=== PATIENT | male | born 1995 | race Caucasian/White ===

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

== ENCOUNTER 2017-01-07 22:12 | Inpatient (IN) | payer OTHER ==
[~2017-01-07] VITALS: Ht 175.3 cm; Wt 65.8 kg
[2017-01-07] MEDS ORDERED: 0.9 % SODIUM CHLORIDE 10 ML DISP.SYRIN. IV PRN (22:30)
[2017-01-07] MEDS ORDERED: IV NORMAL SALINE 1000ML BAG 1,000 ML IV SCH (22:30)
[2017-01-07 22:40] LABS: BASO # 0.1 x10^3/uL (0.0-0.2); BASO % 0 % (0-3); EOS % 0 % (0-3); HEMOGLOBIN 17.9 g/dL (13.0-17.5); LYMPH # 1.5 x10^3/uL (1.0-4.8); LYMPH % 7 % (24-48); MEAN CORPUSCULAR HEMOGLOBIN 33 pg (25-35); MEAN CORPUSCULAR HGB CONC 34 g/dL (31-37); MEAN CORPUSCULAR VOLUME 98 fL (79-100); MONO % 7 % (0-9); NEUT % 87 % (31-73); PLATELET COUNT 418 x10^3/uL (140-400); RED BLOOD COUNT 5.43 x10^6/uL (4.30-5.70); RED CELL DISTRIBUTION WIDTH 12.8 % (11.5-14.5); WHITE BLOOD COUNT 22.5 x10^3/uL (4.0-11.0)
[2017-01-07] MEDS ORDERED: HYDROmorphone 2 MG/ML VIAL IV ONE (22:45)
[2017-01-07] MEDS ORDERED: ONDANSETRON PF 4 MG/2 ML VIAL. IV ONE (22:45)
--- NOTE | 2017-01-07 22:48 | PHYS DOC ---
Past Medical History Past Medical History: Diabetes-Type I Past Surgical History: No Surgical History Alcohol Use: Occasionally Drug Use: Cocaine, Marijuana Adult General Chief Complaint Chief Complaint: BLOOD SUGAR PROBLEM HPI HPI He is a pleasant 21-year-old male with history of diabetes and prior history of DKA presents with lower back pain and nausea and vomiting that began about 6:30 PM tonight. He's noted his sugars been well over 400 tonight and is not be able to tolerate any food or fluids. Patient is getting progressively weak and shaky with increasing abdominal pain. He describes the pain as typical crampy achy pain with his nausea vomiting. That's been nonbilious nonbloody and no diarrhea. Patient denies any urinary frequency urgency or dysuria. He also denies any hematuria. He has had significant chills but no fevers or diaphoresis. Patient just doesn't feel well. He describes general myalgias in his lower back described as an achy pain which is typical with his prior DKA events. He denies any trauma, travel outside the country or recent antibiotics use he also denies any changes to his medication dosing. Review of Systems Review of Systems Constitutional: He is complaining of chills without fevers Eyes: Denies change in visual acuity, redness, or eye pain [] HENT: Denies nasal congestion or sore throat does complain of a sore dry mouth Respiratory: Denies cough or shortness of breath [] Cardiovascular: No additional information not addressed in HPI [] GI: Does complain of diffuse abdominal discomfort with nausea and vomiting nonbilious nonbloody no diarrhea no constipation : Denies dysuria or hematuria [] Musculoskeletal: He describes crampy achy back pain with no radiation to the abdomen. Integument: Denies rash or skin lesions [] Neurologic: Denies headache, focal weakness or sensory changes [] Endocrine: Denies polyuria or polydipsia [] Current Medications Current Medications Current Medications Medications (Trade) Dose Ordered Sig/Nam Start Time Stop Time Status Last Admin Dose Admin Fentanyl Citrate (Fentanyl 2ml Vial) 50 mcg PRN Q2HR PRN 01/07/17 23:15 01/08/17 23:14 Hydromorphone HCl (Dilaudid) 1 mg 1X ONCE 01/07/17 22:45 01/07/17 22:46 DC 01/07/17 22:47 1 MG Insulin Human Regular 150 ml @ 0 mls/hr 1X ONCE 01/07/17 23:15 01/07/17 23:19 DC Lorazepam (Ativan) 1 mg 1X ONCE 01/07/17 22:45 01/07/17 22:46 DC 01/07/17 22:48 1 MG Ondansetron HCl (Zofran) 4 mg PRN Q8HRS PRN 01/07/17 23:15 01/08/17 23:14 Sodium Chloride 1,000 ml @ 1,000 mls/hr 1X ONCE 01/07/17 23:15 01/08/17 00:14 Sodium Chloride (Normal Saline Flush) 10 ml QSHIFT PRN 01/07/17 22:30 01/07/17 23:17 10 ML Allergies Allergies Allergies Coded Allergies Type Severity Reaction Last Updated Verified Penicillins Allergy Intermediate 05/27/15 Yes amoxicillin Allergy Intermediate 05/27/15 Yes cefaclor Allergy Intermediate 05/04/16 Yes Physical Exam Physical Exam Constitutional: He is thin and cachectic in obvious distress hyperventilating complaining of abdominal pain actively vomiting HENT: Normocephalic, atraumatic, bilateral external ears normal, very dry mucous membranes, no oral exudates, nose normal. [] Eyes: PERRLA, EOMI, conjunctiva normal, no discharge. [] Neck: Normal range of motion, no tenderness, supple, no stridor. [] Cardiovascular: Noted tachycardia Lungs & Thorax: Bilateral breath sounds clear to auscultation [] Abdomen: With hyperactive bowel sounds soft no guarding rebound organomegaly Skin: Warm, does demonstrate slight diaphoresis pale no erythema no rash[] Back: No tenderness, no CVA tenderness. [] Extremities: No tenderness, no cyanosis, no clubbing, ROM intact, no edema. [] Neurologic: Alert and oriented X 3, normal motor function, normal sensory function, no focal deficits noted. [] Psychologic: Affect normal, judgement normal, mood normal. [] Current Patient Data Vital Signs Vital Signs Date Time Temp Pulse Resp B/P (MAP) Pulse Ox O2 Delivery O2 Flow Rate FiO2 01/07/17 22:47 Room Air 01/07/17 22:35 98.3 118 36 163/93 (116) 100 98.3 Lab Values Laboratory Tests Test 01/07/17 22:29 01/07/17 22:34 O2 Saturation 97 % (92-99) Arterial Blood pH 7.21 (7.35-7.45) L Arterial Blood pCO2 at Patient Temp 25 mmHg (35-46) L Arterial Blood pO2 at Patient Temp 99 mmHg (85-108) Arterial Blood HCO3 10 mmol/L (21-28) L Arterial Blood Base Excess -16 mmol/L (-3-3) L FiO2 21 White Blood Count 22.5 x10^3/uL (4.0-11.0) H Red Blood Count 5.43 x10^6/uL (4.30-5.70) Hemoglobin 17.9 g/dL (13.0-17.5) H Hematocrit 53.0 % (39.0-53.0) Mean Corpuscular Volume 98 fL (79-100) Mean Corpuscular Hemoglobin 33 pg (25-35) Mean Corpuscular Hemoglobin Concent 34 g/dL (31-37) Red Cell Distribution Width 12.8 % (11.5-14.5) Platelet Count 418 x10^3/uL (140-400) H Neutrophils (%) (Auto) 87 % (31-73) H Lymphocytes (%) (Auto) 7 % (24-48) L Monocytes (%) (Auto) 7 % (0-9) Eosinophils (%) (Auto) 0 % (0-3) Basophils (%) (Auto) 0 % (0-3) Neutrophils # (Auto) 19.5 x10^3uL (1.8-7.7) H Lymphocytes # (Auto) 1.5 x10^3/uL (1.0-4.8) Monocytes # (Auto) 1.5 x10^3/uL (0.0-1.1) H Eosinophils # (Auto) 0.0 x10^3/uL (0.0-0.7) Basophils # (Auto) 0.1 x10^3/uL (0.0-0.2) Platelet Estimate Pending Sodium Level 134 mmol/L (136-145) L Potassium Level 4.5 mmol/L (3.5-5.1) Chloride Level 90 mmol/L (98-107) L Carbon Dioxide Level 13 mmol/L (21-32) L Anion Gap 31 (6-14) H Blood Urea Nitrogen 21 mg/dL (8-26) Creatinine 1.7 mg/dL (0.7-1.3) H Estimated GFR (Cockcroft-Gault) 52.2 BUN/Creatinine Ratio 12 (6-20) Glucose Level 461 mg/dL (70-99) H Calcium Level 10.4 mg/dL (8.5-10.1) H Magnesium Level 2.1 mg/dL (1.8-2.4) Total Bilirubin 0.5 mg/dL (0.2-1.0) Aspartate Amino Transferase (AST) 20 U/L (15-37) Alanine Aminotransferase (ALT) 25 U/L (16-63) Alkaline Phosphatase 193 U/L (46-116) H Total Protein 10.4 g/dL (6.4-8.2) H Albumin 5.3 g/dL (3.4-5.0) H Albumin/Globulin Ratio 1.0 (1.0-1.7) Lipase 78 U/L (73-393) Thyroid Stimulating Hormone (TSH) 0.555 uIU/mL (0.358-3.74) Acetone Level Sm pos (NEG) Laboratory Tests 01/07/17 22:34 Laboratory Tests 01/07/17 22:34 EKG EKG [] Radiology/Procedures Radiology/Procedures [] Course & Med Decision Making Course & Med Decision Making Pertinent Labs and Imaging studies reviewed. (See chart for details) patient presents with nausea vomiting abdominal pain with back pain very similar to his prior episodes of DKA. I concern is that patient's blood sugar upon arrival is 470 as been elevated all day. He is very weak pale looking mildly diaphoretic patient's LOC not feeling well is mildly tachycardic on arrival with very dry mucous members. He's had decreasing urine output all day. The objective at this point is to assess level of potassium for starting insulin providing a great deal fluid to rehydrate this patient. Patient was given 2 L of normal saline here in the emergency department potassium noted to be 4.5 patient's platelet count is also elevated 418 which is like an acute phase reaction secondary to stress Patient's ABG demonstrates a pH of 7.21 PCO2 of 25 PaO2 99 bicarbonate of 10 patient's ABG shows signs of metabolic acidosis he has a white count of 22,000 which is likely secondary to address from DKA patient's UN is normal but his creatinine is elevated at 1.7. Acetone level is slightly positive. Laboratory Tests Test 01/07/17 22:29 01/07/17 22:34 O2 Saturation 97 % (92-99) Arterial Blood pH 7.21 (7.35-7.45) Arterial Blood pCO2 at Patient Temp 25 mmHg (35-46) Arterial Blood pO2 at Patient Temp 99 mmHg (85-108) Arterial Blood HCO3 10 mmol/L (21-28) Arterial Blood Base Excess -16 mmol/L (-3-3) FiO2 21 White Blood Count 22.5 x10^3/uL (4.0-11.0) Red Blood Count 5.43 x10^6/uL (4.30-5.70) Hemoglobin 17.9 g/dL (13.0-17.5) Hematocrit 53.0 % (39.0-53.0) Mean Corpuscular Volume 98 fL (79-100) Mean Corpuscular Hemoglobin 33 pg (25-35) Mean Corpuscular Hemoglobin Concent 34 g/dL (31-37) Red Cell Distribution Width 12.8 % (11.5-14.5) Platelet Count 418 x10^3/uL (140-400) Neutrophils (%) (Auto) 87 % (31-73) Lymphocytes (%) (Auto) 7 % (24-48) Monocytes (%) (Auto) 7 % (0-9) Eosinophils (%) (Auto) 0 % (0-3) Basophils (%) (Auto) 0 % (0-3) Neutrophils # (Auto) 19.5 x10^3uL (1.8-7.7) Lymphocytes # (Auto) 1.5 x10^3/uL (1.0-4.8) Monocytes # (Auto) 1.5 x10^3/uL (0.0-1.1) Eosinophils # (Auto) 0.0 x10^3/uL (0.0-0.7) Basophils # (Auto) 0.1 x10^3/uL (0.0-0.2) Sodium Level 134 mmol/L (136-145) Chloride Level 90 mmol/L (98-107) Carbon Dioxide Level 13 mmol/L (21-32) Anion Gap 31 (6-14) Blood Urea Nitrogen 21 mg/dL (8-26) Estimated GFR (Cockcroft-Gault) 52.2 BUN/Creatinine Ratio 12 (6-20) Glucose Level 461 mg/dL (70-99) Calcium Level 10.4 mg/dL (8.5-10.1) Total Bilirubin 0.5 mg/dL (0.2-1.0) Aspartate Amino Transf (AST/SGOT) 20 U/L (15-37) Alkaline Phosphatase 193 U/L (46-116) Total Protein 10.4 g/dL (6.4-8.2) Albumin 5.3 g/dL (3.4-5.0) Albumin/Globulin Ratio 1.0 (1.0-1.7) Lipase 78 U/L (73-393) Acetone Level Sm pos (NEG) []At this point patient's urinalysis is still pending patient's chest x-ray read by me are 2 views AP films done at 11 PM 01/07/2017 demonstrates no focal infiltrates, no pneumothorax, no pleural effusion. [employer] note: Dr. Cruz [employer] called at of the service 11:20 pm Consult called back at 11:24 Discussed the case I presented and they agreed with admission. Time of acceptance 11:24 Impression: DKA, dehydration, back pain Dragon Disclaimer Dragon Disclaimer This electronic medical record was generated, in whole or in part, using a voice recognition dictation system. Departure Departure Impression: Primary Impression: DKA (diabetic ketoacidoses) Disposition: ADMITTED INPATIENT Condition: GUARDED Referrals: Edel RIGGS MD (PCP) KARTHIK OH MD Jan 07, 2017 22:48
[2017-01-07 22:51] LABS: MAGNESIUM 2.1 mg/dL (1.8-2.4)
[2017-01-07 22:56] LABS: ALBUMIN 5.3 g/dL (3.4-5.0); CALCIUM 10.4 mg/dL (8.5-10.1); CREATININE 1.7 mg/dL (0.7-1.3); GFR 52.2; POTASSIUM 4.5 mmol/L (3.5-5.1); TOTAL BILIRUBIN 0.5 mg/dL (0.2-1.0); TOTAL PROTEIN 10.4 g/dL (6.4-8.2)
[2017-01-07 23:05] LABS: ACETONE SM POS (NEG)
[2017-01-07 23:10] LABS: HCO3 ABG 10 mmol/L (21-28); PCO2 ABG 25 mmHg (35-46); PH ABG 7.21 (7.35-7.45); PO2 ABG 99 mmHg (85-108); SAT O2 ABG 97 % (92-99)
[2017-01-07 23:11] LABS: FIO2 ABG 21
[2017-01-07] MEDS ORDERED: fentaNYL PF VIAL 100 MCG/2 ML VIAL IV PRN (23:15)
[2017-01-07] MEDS ORDERED: ONDANSETRON PF 4 MG/2 ML VIAL. IV PRN (23:15)
[2017-01-07] MEDS ORDERED: IV NORMAL SALINE 1000ML BAG 1,000 ML IV ONE (23:15)
[2017-01-07] MEDS ORDERED: INSULIN,REGULAR 150 UNIT DRIP 150 ML IV ONE (23:15)
[2017-01-07 23:29] LABS: PLT ESTIMATE INCREASED (ADEQUATE)
[2017-01-07] MEDS ORDERED: POTASSIUM CHLORIDE 10MEQ 100 ML IV PRN ×3 (23:45)
[2017-01-07] MEDS ORDERED: INSULIN REGULAR VIAL 150 UNIT in 0.9 % SODIUM CHLORIDE 150ML 150 ML IV PRN (23:45)
[2017-01-08] VITALS (14 sets, daily range): BP systolic 117–154; BP diastolic 56–92
[2017-01-08] MEDS ORDERED: INSU100V8 SQ (01:34)
[2017-01-08] MEDS ORDERED: INSU100C4 SQ (01:35)
[2017-01-08] MEDS: POTASSIUM CHLORIDE 10MEQ 100 ML IV SCH ×4 (01:39→06:28)
[2017-01-08] MEDS: IV DEXTROSE 5% - 0.9 % NACL 1,000 ML IV SCH ×2 (01:40→05:08)
[2017-01-08 04:52] LABS: CALCIUM 8.8 mg/dL (8.5-10.1); CREATININE 1.2 mg/dL (0.7-1.3); MAGNESIUM 1.9 mg/dL (1.8-2.4); PHOSPHORUS 2.8 mg/dL (2.6-4.7); POTASSIUM 4.6 mmol/L (3.5-5.1)
--- NOTE | 2017-01-08 06:21 | EKG ---
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
[2017-01-08] MEDS: IV NORMAL SALINE 1000ML BAG 1,000 ML IV SCH ×2 (06:24→17:25)
[2017-01-08] MEDS ORDERED: DEXTROSE 50% 25 GM / 50ML DISP.SYRIN. IV PRN (06:30)
--- NOTE | 2017-01-08 07:28 | RAD ---
Indication nausea vomiting and back pain. 2 AP views of the chest were obtained. No prior imaging of the chest is available. The heart, pulmonary vessels and mediastinum appear normal. The lungs are clear. IMPRESSION: No acute process seen in the chest
[2017-01-08] MEDS: INSULIN ASPART 300 UNITS/3 ML INSULN.PEN SQ SCH ×6 (07:30→17:27)
--- NOTE | 2017-01-08 08:12 | PDOC ---
PROGRESS NOTES Subjective Subjective Patient sleepy, denies nausea or abdominal pain at this time. Objective Objective Vital Signs Date Time Temp Pulse Resp B/P (MAP) Pulse Ox O2 Delivery O2 Flow Rate FiO2 01/08/17 07:00 95 12 120/58 (78) Room Air 01/08/17 06:00 98 01/08/17 04:00 97.6 97.6 Physical Exam Abdomen: Normal bowel sounds, Soft, No tenderness Heart: Regular rate Extremities: No edema General: Alert, Oriented X3, No acute distress Lungs: Clear to auscultation Assessment Assessment Problems Medical Problems: (1) DKA (diabetic ketoacidoses) Status: Acute Plan Plan of Care 1. DM1 with DKA - lab much improved with hydration overnight. Patient states he hadn't taken his insulins for 1-2 days. Changed to NS, taking po now without problems. K+ good, continue to follow lab. Resuming SQ insulins, off insulin gtt. 2. substance abuse - UDS has been positive for cocaine on previous ER visit. No UDS done this time, patient does admit to some drug use recently. Smokes cigarettes, declines nicotine patch. 3. hx depression - patient was seen in our office several months ago reporting significant symptoms of this. He had declined medication and was advised counseling. Patient apparently did not receive any tx, states he has not felt depressed recently. Comment Review of Relevant I have reviewed the following items aline (where applicable) has been applied. Labs Laboratory Tests Test 01/07/17 22:29 01/07/17 22:34 01/07/17 23:39 01/08/17 00:33 O2 Saturation 97 % (92-99) Arterial Blood pH 7.21 (7.35-7.45) Arterial Blood pCO2 at Patient Temp 25 mmHg (35-46) Arterial Blood pO2 at Patient Temp 99 mmHg (85-108) Arterial Blood HCO3 10 mmol/L (21-28) Arterial Blood Base Excess -16 mmol/L (-3-3) FiO2 21 Glucose (Fingerstick) 470 mg/dL (70-99) 369 mg/dL (70-99) 258 mg/dL (70-99) White Blood Count 22.5 x10^3/uL (4.0-11.0) Red Blood Count 5.43 x10^6/uL (4.30-5.70) Hemoglobin 17.9 g/dL (13.0-17.5) Hematocrit 53.0 % (39.0-53.0) Mean Corpuscular Volume 98 fL (79-100) Mean Corpuscular Hemoglobin 33 pg (25-35) Mean Corpuscular Hemoglobin Concent 34 g/dL (31-37) Red Cell Distribution Width 12.8 % (11.5-14.5) Platelet Count 418 x10^3/uL (140-400) Neutrophils (%) (Auto) 87 % (31-73) Lymphocytes (%) (Auto) 7 % (24-48) Monocytes (%) (Auto) 7 % (0-9) Eosinophils (%) (Auto) 0 % (0-3) Basophils (%) (Auto) 0 % (0-3) Neutrophils # (Auto) 19.5 x10^3uL (1.8-7.7) Lymphocytes # (Auto) 1.5 x10^3/uL (1.0-4.8) Monocytes # (Auto) 1.5 x10^3/uL (0.0-1.1) Eosinophils # (Auto) 0.0 x10^3/uL (0.0-0.7) Basophils # (Auto) 0.1 x10^3/uL (0.0-0.2) Segmented Neutrophils % 78 % (35-66) Band Neutrophils % 10 % (0-9) Lymphocytes % 7 % (24-48) Monocytes % 5 % (0-10) Platelet Estimate Increased (ADEQUATE) Sodium Level 134 mmol/L (136-145) Potassium Level 4.5 mmol/L (3.5-5.1) Chloride Level 90 mmol/L (98-107) Carbon Dioxide Level 13 mmol/L (21-32) Anion Gap 31 (6-14) Blood Urea Nitrogen 21 mg/dL (8-26) Creatinine 1.7 mg/dL (0.7-1.3) Estimated GFR (Cockcroft-Gault) 52.2 BUN/Creatinine Ratio 12 (6-20) Glucose Level 461 mg/dL (70-99) Calcium Level 10.4 mg/dL (8.5-10.1) Magnesium Level 2.1 mg/dL (1.8-2.4) Total Bilirubin 0.5 mg/dL (0.2-1.0) Aspartate Amino Transf (AST/SGOT) 20 U/L (15-37) Alanine Aminotransferase (ALT/SGPT) 25 U/L (16-63) Alkaline Phosphatase 193 U/L (46-116) Total Protein 10.4 g/dL (6.4-8.2) Albumin 5.3 g/dL (3.4-5.0) Albumin/Globulin Ratio 1.0 (1.0-1.7) Lipase 78 U/L (73-393) Thyroid Stimulating Hormone (TSH) 0.555 uIU/mL (0.358-3.74) Acetone Level Sm pos (NEG) Test 01/08/17 01:00 01/08/17 02:04 01/08/17 03:06 01/08/17 03:58 Glucose (Fingerstick) 209 mg/dL (70-99) 211 mg/dL (70-99) 253 mg/dL (70-99) 288 mg/dL (70-99) Test 01/08/17 04:00 01/08/17 04:59 01/08/17 05:52 Sodium Level 133 mmol/L (136-145) Potassium Level 4.6 mmol/L (3.5-5.1) Chloride Level 99 mmol/L (98-107) Carbon Dioxide Level 20 mmol/L (21-32) Anion Gap 14 (6-14) Blood Urea Nitrogen 17 mg/dL (8-26) Creatinine 1.2 mg/dL (0.7-1.3) Estimated GFR (Cockcroft-Gault) 78.0 Glucose Level 266 mg/dL (70-99) Calcium Level 8.8 mg/dL (8.5-10.1) Phosphorus Level 2.8 mg/dL (2.6-4.7) Magnesium Level 1.9 mg/dL (1.8-2.4) Glucose (Fingerstick) 237 mg/dL (70-99) 224 mg/dL (70-99) Laboratory Tests Test 01/07/17 22:29 01/07/17 22:34 01/07/17 23:39 01/08/17 00:33 O2 Saturation 97 % (92-99) Arterial Blood pH 7.21 (7.35-7.45) Arterial Blood pCO2 at Patient Temp 25 mmHg (35-46) Arterial Blood pO2 at Patient Temp 99 mmHg (85-108) Arterial Blood HCO3 10 mmol/L (21-28) Arterial Blood Base Excess -16 mmol/L (-3-3) FiO2 21 Glucose (Fingerstick) 470 mg/dL (70-99) 369 mg/dL (70-99) 258 mg/dL (70-99) White Blood Count 22.5 x10^3/uL (4.0-11.0) Red Blood Count 5.43 x10^6/uL (4.30-5.70) Hemoglobin 17.9 g/dL (13.0-17.5) Hematocrit 53.0 % (39.0-53.0) Mean Corpuscular Volume 98 fL (79-100) Mean Corpuscular Hemoglobin 33 pg (25-35) Mean Corpuscular Hemoglobin Concent 34 g/dL (31-37) Red Cell Distribution Width 12.8 % (11.5-14.5) Platelet Count 418 x10^3/uL (140-400) Neutrophils (%) (Auto) 87 % (31-73) Lymphocytes (%) (Auto) 7 % (24-48) Monocytes (%) (Auto) 7 % (0-9) Eosinophils (%) (Auto) 0 % (0-3) Basophils (%) (Auto) 0 % (0-3) Neutrophils # (Auto) 19.5 x10^3uL (1.8-7.7) Lymphocytes # (Auto) 1.5 x10^3/uL (1.0-4.8) Monocytes # (Auto) 1.5 x10^3/uL (0.0-1.1) Eosinophils # (Auto) 0.0 x10^3/uL (0.0-0.7) Basophils # (Auto) 0.1 x10^3/uL (0.0-0.2) Segmented Neutrophils % 78 % (35-66) Band Neutrophils % 10 % (0-9) Lymphocytes % 7 % (24-48) Monocytes % 5 % (0-10) Platelet Estimate Increased (ADEQUATE) Sodium Level 134 mmol/L (136-145) Potassium Level 4.5 mmol/L (3.5-5.1) Chloride Level 90 mmol/L (98-107) Carbon Dioxide Level 13 mmol/L (21-32) Anion Gap 31 (6-14) Blood Urea Nitrogen 21 mg/dL (8-26) Creatinine 1.7 mg/dL (0.7-1.3) Estimated GFR (Cockcroft-Gault) 52.2 BUN/Creatinine Ratio 12 (6-20) Glucose Level 461 mg/dL (70-99) Calcium Level 10.4 mg/dL (8.5-10.1) Magnesium Level 2.1 mg/dL (1.8-2.4) Total Bilirubin 0.5 mg/dL (0.2-1.0) Aspartate Amino Transf (AST/SGOT) 20 U/L (15-37) Alanine Aminotransferase (ALT/SGPT) 25 U/L (16-63) Alkaline Phosphatase 193 U/L (46-116) Total Protein 10.4 g/dL (6.4-8.2) Albumin 5.3 g/dL (3.4-5.0) Albumin/Globulin Ratio 1.0 (1.0-1.7) Lipase 78 U/L (73-393) Thyroid Stimulating Hormone (TSH) 0.555 uIU/mL (0.358-3.74) Acetone Level Sm pos (NEG) Test 01/08/17 01:00 01/08/17 02:04 01/08/17 03:06 01/08/17 03:58 Glucose (Fingerstick) 209 mg/dL (70-99) 211 mg/dL (70-99) 253 mg/dL (70-99) 288 mg/dL (70-99) Test 01/08/17 04:00 01/08/17 04:59 01/08/17 05:52 Sodium Level 133 mmol/L (136-145) Potassium Level 4.6 mmol/L (3.5-5.1) Chloride Level 99 mmol/L (98-107) Carbon Dioxide Level 20 mmol/L (21-32) Anion Gap 14 (6-14) Blood Urea Nitrogen 17 mg/dL (8-26) Creatinine 1.2 mg/dL (0.7-1.3) Estimated GFR (Cockcroft-Gault) 78.0 Glucose Level 266 mg/dL (70-99) Calcium Level 8.8 mg/dL (8.5-10.1) Phosphorus Level 2.8 mg/dL (2.6-4.7) Magnesium Level 1.9 mg/dL (1.8-2.4) Glucose (Fingerstick) 237 mg/dL (70-99) 224 mg/dL (70-99) Medications Current Medications Lorazepam (Ativan) 1 mg 1X ONCE IV Last administered on 01/07/17 22:48; Start 01/07/17 at 22:45; Stop 01/07/17 at 22:46; Status DC Sodium Chloride 1,000 ml @ 1,000 mls/hr Q1H IV Last administered on 22:48; Start 01/07/17 at 22:30; Stop 01/07/17 at 23:29; Status DC Sodium Chloride (Normal Saline Flush) 10 ml QSHIFT PRN IV AFTER MEDS AND BLOOD DRAWS Last administered on 01/07/17 23:17; Start 01/07/17 at 22:30 Hydromorphone HCl (Dilaudid) 1 mg 1X ONCE IV Last administered on 01/07/17 22:47; Start 01/07/17 at 22:45; Stop 01/07/17 at 22:46; Status DC Ondansetron HCl (Zofran) 4 mg 1X ONCE IV Last administered on 01/07/17 22:47 ; Start 01/07/17 at 22:45; Stop 01/07/17 at 22:46; Status DC Sodium Chloride 1,000 ml @ 1,000 mls/hr 1X ONCE IV ; Start 01/07/17 at 23:15 ; Stop 01/08/17 at 06:26; Status DC Insulin Human Regular 150 ml @ 0 mls/hr 1X ONCE IV Last administered on 23:33; Start 01/07/17 at 23:15; Stop 01/07/17 at 23:19; Status DC Ondansetron HCl (Zofran) 4 mg PRN Q8HRS PRN IV NAUSEA/VOMITING; Start at 23:15; Stop 01/08/17 at 23:14 Fentanyl Citrate (Fentanyl 2ml Vial) 50 mcg PRN Q2HR PRN IV PAIN Last administered on 01/08/17 01:42; Start 01/07/17 at 23:15; Stop 01/08/17 at 23 :14 Insulin Human Regular 150 unit/ Sodium Chloride 151.5 ml @ 0 mls/hr CONT PRN PRN IV PER PROTOCOL; Start 01/07/17 at 23:45; Stop 01/08/17 at 06:38; Status DC Potassium Chloride 100 ml @ 100 mls/hr PRN Q1HR PRN IV SEE COMMENTS; Start at 23:45 Potassium Chloride 100 ml @ 100 mls/hr PRN Q1HR PRN IV SEE COMMENTS; Start at 23:45 Potassium Chloride 100 ml @ 100 mls/hr PRN Q1HR PRN IV SEE COMMENTS; Start at 23:45 Potassium Chloride 100 ml @ 100 mls/hr Q1H IV Last administered on 01/08/17 02:36; Start 01/08/17 at 01:30; Stop 01/08/17 at 03:29; Status DC Dextrose/Sodium Chloride 1,000 ml @ 250 mls/hr Q4H IV Last administered on 05:08; Start 01/08/17 at 01:30; Stop 01/08/17 at 06:26; Status DC Potassium Chloride 100 ml @ 100 mls/hr Q1H IV Last administered on 01/08/17 06:28; Start 01/08/17 at 05:30; Stop 01/08/17 at 07:29; Status DC Insulin Aspart (NovoLOG) 0-9 UNITS TIDWMEALS SQ ; Start 01/08/17 at 08:00 Dextrose (Dextrose 50%-Water Syringe) 12.5 gm PRN Q15MIN PRN IV SEE COMMENTS; Start 01/08/17 at 06:30 Sodium Chloride 1,000 ml @ 100 mls/hr Q10H IV Last administered on 01/08/17 06:24; Start 01/08/17 at 06:30 Insulin Aspart (NovoLOG) 10 units TIDAC SQ ; Start 01/08/17 at 07:30 Active Scripts Active Reported Novolog (Insulin Aspart) 100 Unit/1 Ml Cartridge 100 Unit SQ Lantus (Insulin Glargine,Hum.rec.anlog) 100 Unit/1 Ml Vial 55 Unit SQ HS Vitals/I & O Vital Sign - Last 24 Hours 01/07/17 01/07/17 01/07/17 01/07/17 22:35 22:47 23:00 23:20 Temp 98.3 98.3 Pulse 118 114 Resp 36 24 B/P (MAP) 163/93 (116) 161/87 (111) Pulse Ox 100 99 O2 Delivery Room Air Room Air Room Air Room Air 01/07/17 01/08/17 01/08/17 01/08/17 23:30 00:00 00:30 01:00 Temp 98.3 98.3 Pulse 108 104 114 106 Resp 18 16 16 20 B/P (MAP) 164/90 (114) 147/80 (102) 157/82 (107) 143/83 (103) Pulse Ox 100 98 99 100 O2 Delivery Room Air 01/08/17 01/08/17 01/08/17 01/08/17 01:15 01:30 01:30 01:42 Pulse 106 112 Resp 23 16 25 B/P (MAP) 154/91 (112) 149/87 (107) Pulse Ox 100 100 100 O2 Delivery Room Air Room Air Room Air Room Air 01/08/17 01/08/17 01/08/17 01/08/17 01:45 02:00 02:27 02:30 Pulse 106 103 102 Resp 26 26 18 21 B/P (MAP) 146/92 (110) 146/83 (104) 146/75 (98) Pulse Ox 100 98 100 97 O2 Delivery Room Air Room Air Room Air Room Air 01/08/17 01/08/17 01/08/17 01/08/17 03:00 04:00 04:00 05:00 Temp 97.6 97.6 Pulse 103 109 101 Resp 14 17 13 B/P (MAP) 145/67 (93) 135/62 (86) 135/67 (89) Pulse Ox 97 98 97 O2 Delivery Room Air Room Air Room Air Room Air 01/08/17 01/08/17 06:00 07:00 Pulse 100 95 Resp 14 12 B/P (MAP) 121/57 (78) 120/58 (78) Pulse Ox 98 O2 Delivery Room Air Room Air TWIN KATZ MD Jan 08, 2017 08:11
[2017-01-08] MEDS ORDERED: ACETAMINOPHEN 500 MG TABLET PO PRN (08:15)
--- NOTE | 2017-01-08 09:05 | HP ---
ADMIT DATE: 01/08/2017 CHIEF COMPLAINT: Abdominal pain with nausea and vomiting. HISTORY OF PRESENT ILLNESS: The patient is a 21-year-old male with type 1 diabetes who presented to the Emergency Room with the above complaint. He reported the onset of symptoms earlier in the evening with low back pain and nausea. He noted that his blood sugars were over 400 and he was not able to tolerate any food or fluids. Initial evaluation in the Emergency Room showed the patient to be in DKA with positive serum acetone. He was started on IV fluids and potassium replacement per protocol with insulin drip and admitted for further treatment. PAST MEDICAL HISTORY: Diabetes mellitus type 1, substance abuse. PAST SURGICAL HISTORY: None. ALLERGIES: THE PATIENT IS ALLERGIC TO PENICILLINS AND CEFACLOR. HOME MEDICATIONS: NovoLog insulin sliding scale with meals, Lantus insulin 50 units at bedtime. The patient admits he has not taken these for 1-2 days. FAMILY HISTORY: Noncontributory. SOCIAL HISTORY: The patient is single. He does smoke cigarettes. There is also a history of substance abuse with cocaine, marijuana, and alcohol. REVIEW OF SYSTEMS: The patient denies fever or chills. He denies cough or shortness of breath. He denies chest pain or palpitations. He reports that his abdominal pain is much improved from at admission. He denies lower extremity edema. He was seen in our office several months ago with complaint of depression. He declined medication then and was advised counseling. He has not apparently had any counseling, but states that his mood has been better recently and he denies feeling depressed at this time. PHYSICAL EXAMINATION: GENERAL: The patient is alert and oriented x 3, resting comfortably in bed in no acute distress. HEENT: PERRL, EOMI, sclerae clear. Oropharynx: Mucous membranes moist. NECK: Supple, without lymphadenopathy. CHEST: Clear to auscultation with normal respiratory effort. CARDIOVASCULAR: Regular rhythm without murmur. ABDOMEN: Soft, nontender, normoactive bowel sounds are present. EXTREMITIES: Bilateral lower extremities are without edema. ASSESSMENT AND PLAN: 1. Diabetes mellitus type 1 with diabetic ketoacidosis. The patient's lab is much improved with hydration overnight. The nausea and vomiting appears to have resolved and he has already eaten a sandwich this morning without difficulty. We will start him on an ADA diet and change to normal saline for ongoing hydration. Subcutaneous insulins have been resumed and the insulin drip has been discontinued. 2. Substance abuse. The patient's urine drug screen was positive for cocaine on a previous Emergency Room visit. No urine drug screen was done this time. The patient does admit to some cocaine use recently. He also smokes cigarettes and declines a nicotine patch at this time. 3. History of depression. The patient states he is feeling better and did not need any treatment for his mood. TWIN KATZ MD DR: DAVID/victoriano JOB#: [id number] / [id number]
[2017-01-08] MEDS ORDERED: INSULIN DETEMIR 300 UNITS/3 ML INSULN.PEN. SQ SCH (21:00)
== END 2017-01-08 20:32 | disposition left against medical advice (07) | DRG 639 ==
LOC: ER 22:12 → 1 WEST ICU 01-08 00:18 → 5 NORTH 01-08 10:56
PROVIDERS: ADMIT Family Medicine; ATTEND Family Medicine
DX: E10.10 Type 1 diabetes mellitus with ketoacidosis without coma (principal); E86.0 Dehydration; F14.10 Cocaine abuse, uncomplicated; F17.210 Nicotine dependence, cigarettes, uncomplicated; Z79.4 Long term (current) use of insulin
CPT/HCPCS: 36415; 36600; 71010; 80048; 80053; 82010; 82805; 82962; 83036; 83690; 83735; 84100; 84443; 85007; 85025; 87641; 93005; 96361; 96365; 96375; J1170; J1815; J2060; J2405; J3010; J3480; J7030; J7042; 99285-25

== ENCOUNTER 2018-01-19 05:57 | Inpatient (IN) | payer OTHER ==
[2018-01-19] VITALS (11 sets, daily range): BP systolic 120–154; BP diastolic 70–85
[~2018-01-19] VITALS: Ht 175.3 cm; Wt 66.2 kg
[~2018-01-19 05:57] MED LIST: ALBU8.5H8 IH; AZIT1PAC PO; INSU100C4 SQ; INSU100I17 SQ; INSU100I32 SQ; INSU100V8 SQ; LISI-338 PO
[2018-01-19] MEDS ORDERED: IV NORMAL SALINE 1000ML BAG 1,000 ML IV SCH ×2 (06:30→08:25)
[2018-01-19] MEDS ORDERED: ONDANSETRON PF 4 MG/2 ML VIAL. IV ONE (06:30)
--- NOTE | 2018-01-19 06:42 | PHYS DOC ---
Past Medical History Past Medical History: Diabetes-Type II Past Surgical History: No Surgical History Additional Information: "1/2 PACK DAILY" Alcohol Use: Occasionally Drug Use: Cocaine, Marijuana Adult General Chief Complaint Chief Complaint: NAUSEA/VOMITING/DIARRHA HPI HPI Patient is a 22 year old male with history of TYPE 1 diabetic, on insulin, presented to ER today with nausea, vomiting, body aches and yesterday. Patient also complaint of headache. Patient denies any fever, no abdominal pain, no chest pain, no trouble breathing. He denies any fever. Patient has history of DKA, he felt like he might be in DKA again. Review of Systems Review of Systems Constitutional: Denies fever or chills [] Eyes: Denies change in visual acuity, redness, or eye pain [] HENT: Denies nasal congestion or sore throat [] Respiratory: Denies cough or shortness of breath [] Cardiovascular: No additional information not addressed in HPI [] GI: Positive for nausea, vomiting, no abdominal pain, no diarrhea. : Denies dysuria or hematuria [] Musculoskeletal: Positive for back pain or joint pain [] Integument: Denies rash or skin lesions [] Neurologic: Positive for headache, No focal weakness or sensory changes [] Endocrine: Denies polyuria or polydipsia [] All other systems were reviewed and found to be within normal limits, except as documented in this note. Current Medications Current Medications Current Medications Medications (Trade) Dose Ordered Sig/Nam Start Time Stop Time Status Last Admin Dose Admin Acetaminophen (Tylenol) 1,000 mg 1X ONCE 01/19/18 07:30 01/19/18 07:31 DC 01/19/18 07:20 1,000 MG Insulin Human Regular 150 ml @ 0 mls/hr 1X ONCE 01/19/18 07:45 01/19/18 07:47 DC Morphine Sulfate (Morphine Sulfate) 5 mg 1X ONCE 01/19/18 08:00 01/19/18 08:01 DC 01/19/18 08:06 5 MG Ondansetron HCl (Zofran) 8 mg 1X ONCE 01/19/18 06:30 01/19/18 06:31 DC 01/19/18 06:38 8 MG Sodium Chloride 1,000 ml @ 1,000 mls/hr 1X ONCE 01/19/18 07:15 01/19/18 08:14 DC 01/19/18 07:49 1,000 MLS/HR Allergies Allergies Allergies Coded Allergies Type Severity Reaction Last Updated Verified Penicillins Allergy Intermediate 05/27/15 Yes amoxicillin Allergy Intermediate 05/27/15 Yes cefaclor Allergy Intermediate 05/04/16 Yes Physical Exam Physical Exam Constitutional: Well developed, well nourished, no acute distress, non-toxic appearance. [] HENT: Normocephalic, atraumatic, bilateral external ears normal, oropharynx moist, no oral exudates, nose normal. [] Eyes: PERRLA, EOMI, conjunctiva normal, no discharge. [] Neck: Normal range of motion, no tenderness, supple, no stridor. [] Cardiovascular: SINUS TACHYCARDIA, regular rhythm, no murmur [] Lungs & Thorax: Bilateral breath sounds clear to auscultation [] Abdomen: Bowel sounds normal, soft, no tenderness, no masses, no pulsatile masses. [] Skin: Warm, dry, no erythema, no rash. [] Back: No tenderness, no CVA tenderness. [] Extremities: No tenderness, no cyanosis, no clubbing, ROM intact, no edema. [] Neurologic: Alert and oriented X 3, normal motor function, normal sensory function, no focal deficits noted. [] Psychologic: Affect normal, judgement normal, mood normal. [] Current Patient Data Vital Signs Vital Signs Date Time Temp Pulse Resp B/P (MAP) Pulse Ox O2 Delivery O2 Flow Rate FiO2 01/19/18 08:06 18 100 01/19/18 06:34 108 147/90 (109) Room Air 01/19/18 06:05 97.6 97.6 Lab Values Laboratory Tests Test 01/19/18 06:05 01/19/18 06:28 01/19/18 07:30 Glucose (Fingerstick) 284 mg/dL (70-99) H White Blood Count 15.3 x10^3/uL (4.0-11.0) H Red Blood Count 5.32 x10^6/uL (4.30-5.70) Hemoglobin 17.9 g/dL (13.0-17.5) H Hematocrit 51.3 % (39.0-53.0) Mean Corpuscular Volume 96 fL (79-100) Mean Corpuscular Hemoglobin 34 pg (25-35) Mean Corpuscular Hemoglobin Concent 35 g/dL (31-37) Red Cell Distribution Width 13.5 % (11.5-14.5) Platelet Count 282 x10^3/uL (140-400) Neutrophils (%) (Auto) 74 % (31-73) H Lymphocytes (%) (Auto) 16 % (24-48) L Monocytes (%) (Auto) 10 % (0-9) H Eosinophils (%) (Auto) 0 % (0-3) Basophils (%) (Auto) 0 % (0-3) Neutrophils # (Auto) 11.3 x10^3uL (1.8-7.7) H Lymphocytes # (Auto) 2.4 x10^3/uL (1.0-4.8) Monocytes # (Auto) 1.5 x10^3/uL (0.0-1.1) H Eosinophils # (Auto) 0.0 x10^3/uL (0.0-0.7) Basophils # (Auto) 0.0 x10^3/uL (0.0-0.2) Sodium Level 135 mmol/L (136-145) L Potassium Level 3.9 mmol/L (3.5-5.1) Chloride Level 96 mmol/L (98-107) L Carbon Dioxide Level 11 mmol/L (21-32) *L Anion Gap 28 (6-14) H Blood Urea Nitrogen 9 mg/dL (8-26) Creatinine 1.1 mg/dL (0.7-1.3) Estimated GFR (Cockcroft-Gault) 85.3 BUN/Creatinine Ratio 8 (6-20) Glucose Level 301 mg/dL (70-99) H Calcium Level 9.8 mg/dL (8.5-10.1) Total Bilirubin 0.7 mg/dL (0.2-1.0) Aspartate Amino Transferase (AST) 18 U/L (15-37) Alanine Aminotransferase (ALT) 20 U/L (16-63) Alkaline Phosphatase 112 U/L (46-116) Total Protein 9.4 g/dL (6.4-8.2) H Albumin 4.9 g/dL (3.4-5.0) Albumin/Globulin Ratio 1.1 (1.0-1.7) Lipase 101 U/L (73-393) Acetone Level Sm pos (NEG) O2 Saturation 98 % (92-99) Arterial Blood pH 7.20 (7.35-7.45) *L Arterial Blood pCO2 at Patient Temp 18 mmHg (35-46) *L Arterial Blood pO2 at Patient Temp 116 mmHg (85-108) H Arterial Blood HCO3 7 mmol/L (21-28) L Arterial Blood Base Excess -19 mmol/L (-3-3) L FiO2 21 Laboratory Tests 01/19/18 06:28 Laboratory Tests 01/19/18 06:28 EKG EKG [] Radiology/Procedures Radiology/Procedures [[facility] [address] [place] [address] IMAGING REPORT Signed PATIENT: CLEMENTE MALONEY ACCOUNT: [id number] : 1995 LOCATION: ER AGE: 22 SEX: M EXAM STATUS: REG ER ORD. PHYSICIAN: CARMELINA PAUL DO REASON: headache, nausea, vomiting, HTN PROCEDURE: CT HEAD WO CONTRAST ADDENDUM PQRS Compliance Statement: One or more of the following individualized dose reduction techniques were utilized for this examination: 1. Automated exposure control 2. Adjustment of the mA and/or kV according to patient size 3. Use of iterative reconstruction technique Electronically signed by: Memo Davis MD (01/19/2018 7:56 AM) [facility] DICTATED AND SIGNED BY: MEMO DAVIS MD DATE: 01/19/18 0756 CC: Edel PERALTA MD; CARMELINA PAUL DO ~ CT of the head without contrast, 01/19/2018: HISTORY: Headache Comparison is made to a study from 04/04/2009. The ventricles are within normal limits in size. There is no shift of the midline structures. Streaky decreased density in the right temporal lobe may be artifactual. There is subtle frontal lobe asymmetry with loss of the wiley-white matter interface on the right. There is no evidence of acute intracranial hemorrhage. No extra-axial fluid collection or mass is seen. IMPRESSION: Possible subtle right frontal lobe edema. MR scanning may be useful for further evaluation, if clinically indicated. Electronically signed by: Memo Davis MD (01/19/2018 7:42 AM) [facility] DICTATED and SIGNED BY: MEMO DAVIS MD DATE: 01/19/18 0736 ] Course & Med Decision Making Course & Med Decision Making Pertinent Labs and Imaging studies reviewed. (See chart for details) [] Dragon Disclaimer Dragon Disclaimer This electronic medical record was generated, in whole or in part, using a voice recognition dictation system. Departure Departure Impression: Primary Impression: DKA (diabetic ketoacidoses) Additional Impression: Headache Disposition: 09 ADMITTED INPATIENT Admitting Physician: Talia Peralta Condition: STABLE Referrals: Edel PERALTA MD (PCP) Problem Qualifiers CARMELINA PAUL DO Jan 19, 2018 06:42
[2018-01-19 06:44] LABS: BASO % 0 % (0-3); EOS % 0 % (0-3); HEMATOCRIT 51.3 % (39.0-53.0); HEMOGLOBIN 17.9 g/dL (13.0-17.5); LYMPH # 2.4 x10^3/uL (1.0-4.8); LYMPH % 16 % (24-48); MEAN CORPUSCULAR HEMOGLOBIN 34 pg (25-35); MEAN CORPUSCULAR HGB CONC 35 g/dL (31-37); MEAN CORPUSCULAR VOLUME 96 fL (79-100); MONO # 1.5 x10^3/uL (0.0-1.1); MONO % 10 % (0-9); NEUT # 11.3 x10^3uL (1.8-7.7); NEUT % 74 % (31-73); PLATELET COUNT 282 x10^3/uL (140-400); RED BLOOD COUNT 5.32 x10^6/uL (4.30-5.70); RED CELL DISTRIBUTION WIDTH 13.5 % (11.5-14.5); WHITE BLOOD COUNT 15.3 x10^3/uL (4.0-11.0)
[2018-01-19 06:56] LABS: ALBUMIN 4.9 g/dL (3.4-5.0); ALBUMIN/GLOBULIN RATIO 1.1 (1.0-1.7); ALK PHOS 112 U/L (46-116); ALT (SGPT) 20 U/L (16-63); ANION GAP 28 (6-14); AST (SGOT) 18 U/L (15-37); BLOOD UREA NITROGEN 9 mg/dL (8-26); BUN/CREATININE RATIO 8 (6-20); CALCIUM 9.8 mg/dL (8.5-10.1); CHLORIDE 96 mmol/L (98-107); CREATININE 1.1 mg/dL (0.7-1.3); GFR 85.3; GLUCOSE 301 mg/dL (70-99); LIPASE 101 U/L (73-393); POTASSIUM 3.9 mmol/L (3.5-5.1); SODIUM 135 mmol/L (136-145); TOTAL BILIRUBIN 0.7 mg/dL (0.2-1.0); TOTAL PROTEIN 9.4 g/dL (6.4-8.2)
[2018-01-19 06:58] LABS: CARBON DIOXIDE 11 mmol/L (21-32)
[2018-01-19 07:07] LABS: ACETONE SM POS (NEG)
[2018-01-19] MEDS ORDERED: IV NORMAL SALINE 1000ML BAG 1,000 ML IV ONE (07:15)
[2018-01-19] MEDS ORDERED: ACETAMINOPHEN 500 MG TABLET PO ONE (07:30)
[2018-01-19] MEDS ORDERED: INSULIN,REGULAR 150 UNIT DRIP 150 ML IV ONE (07:45)
--- NOTE | 2018-01-19 07:45 | RAD ---
CT of the head without contrast, 01/19/2018: HISTORY: Headache Comparison is made to a study from 04/04/2009. The ventricles are within normal limits in size. There is no shift of the midline structures. Streaky decreased density in the right temporal lobe may be artifactual. There is subtle frontal lobe asymmetry with loss of the wiley-white matter interface on the right. There is no evidence of acute intracranial hemorrhage. No extra-axial fluid collection or mass is seen. IMPRESSION: Possible subtle right frontal lobe edema. MR scanning may be useful for further evaluation, if clinically indicated. Electronically signed by: Memo Davis MD (01/19/2018 7:42 AM) [facility]
[2018-01-19 07:51] LABS: BASE EXCESS ABG -19 mmol/L (-3-3); HCO3 ABG 7 mmol/L (21-28); PO2 ABG 116 mmHg (85-108); SAT O2 ABG 98 % (92-99)
[2018-01-19 07:54] LABS: FIO2 ABG 21; PCO2 ABG 18 mmHg (35-46)
[2018-01-19] MEDS ORDERED: MORPHINE SULFATE 10 MG/ML VIAL. IV ONE (08:00)
[2018-01-19] MEDS ORDERED: ONDANSETRON PF 4 MG/2 ML VIAL. IV PRN (08:30)
[2018-01-19] MEDS: MORPHINE SULFATE 2 MG/ML VIAL. IV PRN ×2 (10:22→19:36)
[2018-01-19 13:01] LABS: CALCIUM 8.2 mg/dL (8.5-10.1); CREATININE 0.9 mg/dL (0.7-1.3); GFR 107.6; MAGNESIUM 1.9 mg/dL (1.8-2.4); PHOSPHORUS 1.7 mg/dL (2.6-4.7); POTASSIUM 4.1 mmol/L (3.5-5.1)
[2018-01-19] MEDS ORDERED: IV DEXTROSE 5% - 0.9 % NACL 1,000 ML IV SCH (13:30)
--- NOTE | 2018-01-19 13:43 | PDOC ---
Provider Note Provider Note H&P dictated # [id number] DKA due to noncompliance Type ! 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
[2018-01-19] MEDS ORDERED: NICOTINE 14MG PATCH. TD PRN (13:45)
[2018-01-19] MEDS ORDERED: LORazepam 0.5 MG TABLET PO PRN (13:45)
--- NOTE | 2018-01-19 14:06 | HP ---
ADMIT DATE: 01/19/2018 ADMISSION DIAGNOSIS: Diabetic ketoacidosis. HISTORY OF PRESENT ILLNESS: This is a 22-year-old white male with type 1 diabetes who has been noncompliant with his insulin therapy. He has been having high blood sugars with nausea, vomiting and body aches. He also had a new symptom though of a headache. He came to the Emergency Room with concern about DKA, which he has been hospitalized for twice prior to this year, once here and once at the . He has been admitted into the Intensive Care Unit on a DKA protocol now. Blood sugars have improved dramatically and he is alert and oriented, still complaining of a headache. PAST MEDICAL HISTORY: Significant for type 1 diabetes, tobacco use, marijuana use and he has a history of cocaine use. PAST SURGICAL HISTORY: Negative. FAMILY HISTORY: Diabetes, hypertension. SOCIAL HISTORY: Intermittently been working. Otherwise, as above. His parents are present. REVIEW OF SYSTEMS: He denies fever or chills. He denies changes in eyes, ears, nose or throat. He denies chest pain, cough or shortness of breath. He denies diarrhea or change in bowels. He denies joint pain. His mom thought he had a rash on his back yesterday, but that has since resolved. He denies any skin lesions, sores. Neurologic, negative for history of seizures. PHYSICAL EXAMINATION: VITAL SIGNS: Since admission heart rate has been around 100, temperature 99.1, respiratory rate ranged from 17-22, oxygen saturations 100% on room air. GENERAL: He is in no acute distress. He is alert and oriented. HEENT: Ocular muscles are intact. Conjunctivae are clear. Facial muscles are symmetrical. Tongue protrudes without any abnormal motion, weakness. NECK: Supple. HEART: Borderline tachycardic without murmur, gallop or rub. Normal S1, S2. LUNGS: Clear anteriorly and posteriorly bilaterally. ABDOMEN: Soft, nondistended, nontender. Bowel sounds are present. SKIN: Without rashes or lesions. EXTREMITIES: Without clubbing, cyanosis or edema. Sensation is intact. NEUROLOGIC: He does not show any focal weakness. LABORATORY DATA: White count was 15.3, hemoglobin 17.9, hematocrit 51.3, platelets 282 with a left shift of 74% neutrophils and only 16% lymphocytes. Blood gas showed a pH of 7.20 with a pCO2 low at 18 and a pO2 of 116 on 21%. Chemistries: Sodium 134, potassium 4.1, anion gap of 16, BUN 7, creatinine 0.9 on his most recent labs, his initial sodium was 135, his initial potassium was 3.9. His initial anion gap was 28. His initial blood sugar was 328, has come down now to 137. Phosphorus was low at 1.7, magnesium is normal at 1.9. Lipase is normal. Liver enzymes are normal. Drug screen is positive for alcohol, negative for cannabinoids, positive for cocaine and acetone is positive. MRSA screen is negative from previous visit. IMAGING: CT of his head, probable subtle right frontal lobe edema suggesting further evaluation with MR scanning. We will defer to Dr. Carbajal regarding contrast. His initial blood pressure reading in the Emergency Room was 169/105. ASSESSMENT: 1. Diabetic ketoacidosis, admitted in the Intensive Care Unit on diabetic ketoacidosis protocol. He is now controlled. 2. 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 3. Initially hypertensive without history of hypertension, likely drug induced. 4. History of polysubstance abuse. PLAN: Continue his ICU care for now. Neurologic consultation has been obtained Counseling has been done regarding drug use, medication compliance. His parents were present during that discussion. W Fernandez RIGGS MD DR: CAMRON/victoriano JOB#: [id number] / [id number]
--- NOTE | 2018-01-19 15:11 | PDOC2 ---
NEUROLOGY CONSULT Date of Admission Date of Admission DATE: 01/19/18 TIME: 15:06 Reason for Consult Reason for Consult: Headache Referring Physician Referring Physician: Dr. Peralta Source Source: Caregiver (mother), Patient History of Present Illness History of Present Illness The patient is a 22-year-old right-handed male admitted with diabetic ketoacidosis, type 1 diabetes. His mother says that he does get a headache when he goes into DKA. He had a headache yesterday. CT of the head was read as abnormal. He does not usually have headaches otherwise. There is no history of stroke, seizure, or head injury. Right now his headache is 0/10. 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, occasional alcohol, marijuana, no tobacco Current Medications Current Medications Current Medications Sodium Chloride 1,000 ml @ 1,000 mls/hr Q1H IV Last administered on at 06:39; Start 01/19/18 at 06:30; Stop 01/19/18 at 07:29; Status DC Ondansetron HCl (Zofran) 8 mg 1X ONCE IV Last administered on 01/19/18at 06:38 ; Start 01/19/18 at 06:30; Stop 01/19/18 at 06:31; Status DC Sodium Chloride 1,000 ml @ 1,000 mls/hr 1X ONCE IV Last administered on 01/19at 07:49; Start 01/19/18 at 07:15; Stop 01/19/18 at 08:14; Status DC Acetaminophen (Tylenol) 1,000 mg 1X ONCE PO Last administered on 01/19/18at 07 :20; Start 01/19/18 at 07:30; Stop 01/19/18 at 07:31; Status DC Insulin Human Regular 150 ml @ 0 mls/hr 1X ONCE IV Last administered on at 08:51; Start 01/19/18 at 07:45; Stop 01/19/18 at 07:47; Status DC Morphine Sulfate (Morphine Sulfate) 5 mg 1X ONCE IV Last administered on 01/19at 08:06; Start 01/19/18 at 08:00; Stop 01/19/18 at 08:01; Status DC Ondansetron HCl (Zofran) 4 mg PRN Q8HRS PRN IV NAUSEA/VOMITING Last administered on 01/19/18at 08:55; Start 01/19/18 at 08:30; Stop 01/20/18 at 08: 29 Morphine Sulfate (Morphine Sulfate) 2 mg PRN Q2HR PRN IV PAIN Last administered on 01/19/18at 10:22; Start 01/19/18 at 08:30; Stop 01/20/18 at 08: 29 Sodium Chloride 1,000 ml @ 100 mls/hr Q10H IV Last administered on 01/19/18at 08:49; Start 01/19/18 at 08:25; Stop 01/19/18 at 13:13; Status DC Dextrose/Sodium Chloride 1,000 ml @ 250 mls/hr Q4H IV Last administered on at 13:18; Start 01/19/18 at 13:30 Insulin Glargine (Lantus) 40 units HS SQ ; Start 01/19/18 at 21:00 Insulin Human Lispro (HumaLOG) 15 units QIDACHS SQ ; Start 01/19/18 at 17:00 Lorazepam (Ativan) 0.5 mg PRN Q8HRS PRN PO ANXIETY / AGITATION; Start at 13:45 Nicotine (Nicoderm Cq 14mg) 1 patch PRN DAILY PRN TD SMOKING CESSATION; Start 01/19/18 at 13:45 Active Scripts Active Proair Hfa (Albuterol Sulfate) 8.5 Gm Hfa.aer.ad 8.5 Gm IH TID PRN 30 Days Zithromax Packet (Azithromycin) 1 Gm Packet 1 Packet PO ONCE Reported Novolog Flexpen (Insulin Aspart) 100 Unit/1 Ml Insuln.pen 15 Units SQ QIDACHS Basaglar Kwikpen U-100 (Insulin Glargine,Hum.rec.anlog) 100 Unit/1 Ml Insuln.pen 40 Units SQ HS Allergies Allergies: Coded Allergies: Penicillins (Verified Allergy, Intermediate, 05/27/15) amoxicillin (Verified Allergy, Intermediate, 05/27/15) cefaclor (Verified Allergy, Intermediate, 05/04/16) ROS Review of System Patient denies fevers, chills, weight loss, dyspnea, angina, abdominal pain, change in bowels, or dysuria. 14-point review of systems is negative. Physical Exam Physical Examination General: Well-developed, well-nourished, white male, in no acute distress HEENT: Normocephalic andatraumatic.Temporal arteriespulsatile and nontender. Fundoscopic exam unremarkable Neck: Supple without bruit, no meningismus Musculoskeletal: Stability:see neurologic. Gait exam:see neurologic. Tone:see neurologic. Strength:see neurologic. Neurological: Mental Status:intact, orientation, memory, attention span/concentration, language, fund of knowledge normal. Cranial Nerves:Pupils equal and reactive to light, extraocular movements areintact, visual ramirez are full to confrontation. Facial sensation is normal. There is no facial asymmetry. Vestibulo-ocular reflex is intact. Palate elvates and tongue protrudes in midline. All other cranial related problems are negative except as mentioned before.Reflexes:2+ and symmetric with flexor plantar responses. Motor:5/5 strength with normal tone and bulk. Coordination:Finger-nose finger and heel-to -ayala testing are normal. Rapid alternating movements and fine finger movements are intact. Gait:not tested. Sensory:Normal pinprick, vibration, light touch, proprioception. Vitals VITALS Vital Signs Date Time Temp Pulse Resp B/P (MAP) Pulse Ox O2 Delivery O2 Flow Rate FiO2 01/19/18 14:33 98 19 130/76 (94) 100 Room Air 01/19/18 12:00 99.1 99.1 Labs Labs Laboratory Tests Test 01/19/18 06:05 01/19/18 06:28 01/19/18 07:30 01/19/18 08:35 Glucose (Fingerstick) 284 mg/dL (70-99) 328 mg/dL (70-99) White Blood Count 15.3 x10^3/uL (4.0-11.0) Red Blood Count 5.32 x10^6/uL (4.30-5.70) Hemoglobin 17.9 g/dL (13.0-17.5) Hematocrit 51.3 % (39.0-53.0) Mean Corpuscular Volume 96 fL (79-100) Mean Corpuscular Hemoglobin 34 pg (25-35) Mean Corpuscular Hemoglobin Concent 35 g/dL (31-37) Red Cell Distribution Width 13.5 % (11.5-14.5) Platelet Count 282 x10^3/uL (140-400) Neutrophils (%) (Auto) 74 % (31-73) Lymphocytes (%) (Auto) 16 % (24-48) Monocytes (%) (Auto) 10 % (0-9) Eosinophils (%) (Auto) 0 % (0-3) Basophils (%) (Auto) 0 % (0-3) Neutrophils # (Auto) 11.3 x10^3uL (1.8-7.7) Lymphocytes # (Auto) 2.4 x10^3/uL (1.0-4.8) Monocytes # (Auto) 1.5 x10^3/uL (0.0-1.1) Eosinophils # (Auto) 0.0 x10^3/uL (0.0-0.7) Basophils # (Auto) 0.0 x10^3/uL (0.0-0.2) Sodium Level 135 mmol/L (136-145) Potassium Level 3.9 mmol/L (3.5-5.1) Chloride Level 96 mmol/L (98-107) Carbon Dioxide Level 11 mmol/L (21-32) Anion Gap 28 (6-14) Blood Urea Nitrogen 9 mg/dL (8-26) Creatinine 1.1 mg/dL (0.7-1.3) Estimated GFR (Cockcroft-Gault) 85.3 BUN/Creatinine Ratio 8 (6-20) Glucose Level 301 mg/dL (70-99) Calcium Level 9.8 mg/dL (8.5-10.1) Total Bilirubin 0.7 mg/dL (0.2-1.0) Aspartate Amino Transf (AST/SGOT) 18 U/L (15-37) Alanine Aminotransferase (ALT/SGPT) 20 U/L (16-63) Alkaline Phosphatase 112 U/L (46-116) Total Protein 9.4 g/dL (6.4-8.2) Albumin 4.9 g/dL (3.4-5.0) Albumin/Globulin Ratio 1.1 (1.0-1.7) Lipase 101 U/L (73-393) Acetone Level Sm pos (NEG) O2 Saturation 98 % (92-99) Arterial Blood pH 7.20 (7.35-7.45) Arterial Blood pCO2 at Patient Temp 18 mmHg (35-46) Arterial Blood pO2 at Patient Temp 116 mmHg (85-108) Arterial Blood HCO3 7 mmol/L (21-28) Arterial Blood Base Excess -19 mmol/L (-3-3) FiO2 21 Test 01/19/18 09:49 01/19/18 10:57 01/19/18 11:57 01/19/18 12:35 Glucose (Fingerstick) 255 mg/dL (70-99) 198 mg/dL (70-99) 159 mg/dL (70-99) Sodium Level 134 mmol/L (136-145) Potassium Level 4.1 mmol/L (3.5-5.1) Chloride Level 102 mmol/L (98-107) Carbon Dioxide Level 16 mmol/L (21-32) Anion Gap 16 (6-14) Blood Urea Nitrogen 7 mg/dL (8-26) Creatinine 0.9 mg/dL (0.7-1.3) Estimated GFR (Cockcroft-Gault) 107.6 Glucose Level 134 mg/dL (70-99) Calcium Level 8.2 mg/dL (8.5-10.1) Phosphorus Level 1.7 mg/dL (2.6-4.7) Magnesium Level 1.9 mg/dL (1.8-2.4) Test 01/19/18 13:02 01/19/18 14:06 Glucose (Fingerstick) 137 mg/dL (70-99) 214 mg/dL (70-99) Laboratory Tests Test 01/19/18 06:05 01/19/18 06:28 01/19/18 07:30 01/19/18 08:35 Glucose (Fingerstick) 284 mg/dL (70-99) 328 mg/dL (70-99) White Blood Count 15.3 x10^3/uL (4.0-11.0) Red Blood Count 5.32 x10^6/uL (4.30-5.70) Hemoglobin 17.9 g/dL (13.0-17.5) Hematocrit 51.3 % (39.0-53.0) Mean Corpuscular Volume 96 fL (79-100) Mean Corpuscular Hemoglobin 34 pg (25-35) Mean Corpuscular Hemoglobin Concent 35 g/dL (31-37) Red Cell Distribution Width 13.5 % (11.5-14.5) Platelet Count 282 x10^3/uL (140-400) Neutrophils (%) (Auto) 74 % (31-73) Lymphocytes (%) (Auto) 16 % (24-48) Monocytes (%) (Auto) 10 % (0-9) Eosinophils (%) (Auto) 0 % (0-3) Basophils (%) (Auto) 0 % (0-3) Neutrophils # (Auto) 11.3 x10^3uL (1.8-7.7) Lymphocytes # (Auto) 2.4 x10^3/uL (1.0-4.8) Monocytes # (Auto) 1.5 x10^3/uL (0.0-1.1) Eosinophils # (Auto) 0.0 x10^3/uL (0.0-0.7) Basophils # (Auto) 0.0 x10^3/uL (0.0-0.2) Sodium Level 135 mmol/L (136-145) Potassium Level 3.9 mmol/L (3.5-5.1) Chloride Level 96 mmol/L (98-107) Carbon Dioxide Level 11 mmol/L (21-32) Anion Gap 28 (6-14) Blood Urea Nitrogen 9 mg/dL (8-26) Creatinine 1.1 mg/dL (0.7-1.3) Estimated GFR (Cockcroft-Gault) 85.3 BUN/Creatinine Ratio 8 (6-20) Glucose Level 301 mg/dL (70-99) Calcium Level 9.8 mg/dL (8.5-10.1) Total Bilirubin 0.7 mg/dL (0.2-1.0) Aspartate Amino Transf (AST/SGOT) 18 U/L (15-37) Alanine Aminotransferase (ALT/SGPT) 20 U/L (16-63) Alkaline Phosphatase 112 U/L (46-116) Total Protein 9.4 g/dL (6.4-8.2) Albumin 4.9 g/dL (3.4-5.0) Albumin/Globulin Ratio 1.1 (1.0-1.7) Lipase 101 U/L (73-393) Acetone Level Sm pos (NEG) O2 Saturation 98 % (92-99) Arterial Blood pH 7.20 (7.35-7.45) Arterial Blood pCO2 at Patient Temp 18 mmHg (35-46) Arterial Blood pO2 at Patient Temp 116 mmHg (85-108) Arterial Blood HCO3 7 mmol/L (21-28) Arterial Blood Base Excess -19 mmol/L (-3-3) FiO2 21 Test 01/19/18 09:49 01/19/18 10:57 01/19/18 11:57 01/19/18 12:35 Glucose (Fingerstick) 255 mg/dL (70-99) 198 mg/dL (70-99) 159 mg/dL (70-99) Sodium Level 134 mmol/L (136-145) Potassium Level 4.1 mmol/L (3.5-5.1) Chloride Level 102 mmol/L (98-107) Carbon Dioxide Level 16 mmol/L (21-32) Anion Gap 16 (6-14) Blood Urea Nitrogen 7 mg/dL (8-26) Creatinine 0.9 mg/dL (0.7-1.3) Estimated GFR (Cockcroft-Gault) 107.6 Glucose Level 134 mg/dL (70-99) Calcium Level 8.2 mg/dL (8.5-10.1) Phosphorus Level 1.7 mg/dL (2.6-4.7) Magnesium Level 1.9 mg/dL (1.8-2.4) Test 01/19/18 13:02 01/19/18 14:06 Glucose (Fingerstick) 137 mg/dL (70-99) 214 mg/dL (70-99) Images Images Head CT: Comparison is made to a study from 04/04/2009. The ventricles are within normal limits in size. There is no shift of the midline structures. Streaky decreased density in the right temporal lobe may be artifactual. There is subtle frontal lobe asymmetry with loss of the wiley-white matter interface on the right. There is no evidence of acute intracranial hemorrhage. No extra-axial fluid collection or mass is seen. IMPRESSION: Possible subtle right frontal lobe edema. MR scanning may be useful for further evaluation, if clinically indicated. Assessment/Plan Assessment/Plan Impression: Headache related to DKA, resolved Possible right frontal lobe edema, I am not impressed with my review of the head CT Recommendations: MRI of the brain Supportive care Discussed with patient and his mother. Also discussed with Dr. Peralta. Thank you for letting me help with the patient's care. DAVY SAINI MD Jan 19, 2018 15:11
[2018-01-19 16:09] LABS: CALCIUM 8.2 mg/dL (8.5-10.1); CREATININE 0.9 mg/dL (0.7-1.3); GFR 107.6; MAGNESIUM 1.9 mg/dL (1.8-2.4); PHOSPHORUS 1.7 mg/dL (2.6-4.7); POTASSIUM 3.5 mmol/L (3.5-5.1)
[2018-01-19] MEDS: INSULIN LISPRO 300 UNITS/3 ML INSULN.PEN. SQ SCH ×3 (17:00→22:07)
[2018-01-19] MEDS ORDERED: INSULIN GLARGINE 300 UNITS/3 ML INSULN.PEN. SQ SCH (21:00)
[2018-01-19] MEDS ORDERED: INSULIN LISPRO 300 UNITS/3 ML INSULN.PEN. SQ ONE (22:30)
[2018-01-20] VITALS: BP 135/82
[2018-01-20] MEDS: MORPHINE SULFATE 2 MG/ML VIAL. IV PRN (00:24)
[2018-01-20 04:00] VITALS: BP 126/70
[2018-01-20 06:28] LABS: CALCIUM 8.7 mg/dL (8.5-10.1); CREATININE 0.6 mg/dL (0.7-1.3); GFR 171.8
[2018-01-20 06:44] LABS: BASO % 1 % (0-3); EOS # 0.1 x10^3/uL (0.0-0.7); EOS % 1 % (0-3); HEMATOCRIT 42.3 % (39.0-53.0); HEMOGLOBIN 14.8 g/dL (13.0-17.5); LYMPH # 2.7 x10^3/uL (1.0-4.8); LYMPH % 42 % (24-48); MEAN CORPUSCULAR HEMOGLOBIN 33 pg (25-35); MEAN CORPUSCULAR HGB CONC 35 g/dL (31-37); MEAN CORPUSCULAR VOLUME 95 fL (79-100); MONO # 0.8 x10^3/uL (0.0-1.1); MONO % 12 % (0-9); NEUT # 2.9 x10^3uL (1.8-7.7); NEUT % 45 % (31-73); PLATELET COUNT 250 x10^3/uL (140-400); RED BLOOD COUNT 4.43 x10^6/uL (4.30-5.70); RED CELL DISTRIBUTION WIDTH 13.3 % (11.5-14.5); WHITE BLOOD COUNT 6.6 x10^3/uL (4.0-11.0)
[2018-01-20] MEDS: INSULIN LISPRO 300 UNITS/3 ML INSULN.PEN. SQ SCH ×4 (07:30→11:14)
[2018-01-20 08:00] VITALS: BP 118/70
--- NOTE | 2018-01-20 09:25 | RAD ---
MRI Brain without contrast History:ABNORMAL CT, POSSIBLE INFARCT, headache Technique: Multiplanar, multisequential noncontrast MR imaging was performed of the brain. Contrast: None Comparison: None Findings: There is no evidence of recent infarct or cytotoxic edema. The ventricles, sulci, and cisterns are within normal limits in size and configuration. There is no significant midline shift, intraaxial mass effect, or focal abnormal extra-axial fluid collection. There is no significant signal abnormality of the brain parenchyma. There is preservation of the major intracranial flow-voids at the skull base. The mastoid air cells are aerated. The cerebellar tonsils are normal in location. There is no significant abnormality of the pineal gland or pituitary gland. Paranasal sinuses are overall aerated. There is preserved marrow signal of the clivus. Impression: 1. There is no significant intracranial abnormality. Electronically signed by: De Pope MD (01/20/2018 9:21 AM) [id number]
[2018-01-20] MEDS: POTASSIUM CHLORIDE 20 MEQ TABLET.ER. PO SCH ×2 (10:51→12:53)
[2018-01-20 12:00] VITALS: BP 130/71
--- NOTE | 2018-01-20 12:55 | PDOC3 ---
Discharge Summary [facility] Date of Admission: Jan 19, 2018 Discharge Date: Jan 20, 2018 Admitting Diagnosis DKA Final Diagnosis Problems Medical Problems: (1) DKA (diabetic ketoacidoses) Status: Acute (2) Headache Status: Acute [facility] Procedures none Brief Hospital Course Mr. Kelly is a 22 old male who presented with DKA from non compliance with insulin and s headache that is secondary to his DKA. He did have imaging of his head suggesting a frontal stroke but a subsequent MRI was normal. He responded to DKA protocol treatment and is feeling baseline and ready for discharge. Family is supportive Disposition home CONDITION AT DISCHARGE: Improved, Stable Diet ADA Scheduled Azithromycin (Zithromax Packet), 1 PACKET PO ONCE Insulin Aspart (Novolog Flexpen), 15 UNITS SQ QIDACHS, (Reported) Insulin Glargine,Hum.rec.anlog (Basaglar Kwikpen U-100), 40 UNITS SQ HS, ( Reported) Scheduled PRN Albuterol Sulfate (Proair Hfa), 8.5 GM IH TID PRN for COUGH Follow Up 1-2 weeks Edel RIGGS MD Jan 20, 2018 12:55
== END 2018-01-20 14:17 | disposition home or self-care (01) | DRG 637 ==
LOC: ER 05:57 → 1 WEST ICU 08:06
PROVIDERS: ADMIT Family Medicine; ATTEND Family Medicine
DX: E10.10 Type 1 diabetes mellitus with ketoacidosis without coma (principal); R65.11 Systemic inflammatory response syndrome (SIRS) of non-infectious origin with acute organ dysfunction; F12.90 Cannabis use, unspecified, uncomplicated; F14.90 Cocaine use, unspecified, uncomplicated; I10 Essential (primary) hypertension; Z79.4 Long term (current) use of insulin; Z82.49 Family history of ischemic heart disease and other diseases of the circulatory system; Z87.891 Personal history of nicotine dependence; Z91.14 Patient's other noncompliance with medication regimen; Z83.3 Family history of diabetes mellitus; Z88.6 Allergy status to analgesic agent; Z88.0 Allergy status to penicillin; Z88.8 Allergy status to other drugs, medicaments and biological substances; Z79.899 Other long term (current) drug therapy; Z71.51 Drug abuse counseling and surveillance of drug abuser
CPT/HCPCS: 36415; 36600; 70450; 70551; 80048; 80053; 82010; 82805; 82962; 83690; 83735; 84100; 85025; 87641; 96361; 96365; 96375; J1815; J2270; J2405; J7030; J7042; 99285-25

== ENCOUNTER 2018-01-27 05:47 | Inpatient (IN) | payer OTHER ==
[~2018-01-27] VITALS: Ht 175.3 cm; Wt 62.6 kg
[2018-01-27] VITALS (14 sets, daily range): BP systolic 107–157; BP diastolic 60–82
[2018-01-27] MEDS ORDERED: INSULIN,REGULAR 150 UNIT DRIP 150 ML IV ONE ×2 (06:10→06:30)
[2018-01-27] MEDS ORDERED: ONDANSETRON PF 4 MG/2 ML VIAL. ONE (06:12)
--- NOTE | 2018-01-27 06:22 | PHYS DOC ---
Past Medical History Past Medical History: Diabetes-Type I Past Surgical History: No Surgical History Alcohol Use: Occasionally Drug Use: Cocaine, Marijuana Adult General Chief Complaint Chief Complaint: NAUSEA/VOMITING/DIARRHA HPI HPI Patient is a 22-year-old male who presents to the emergency department for evaluation. He states that he began vomiting at 3 AM this morning. He has had some mild back pain as well. He has a history of insulin dependent diabetes. He was hospitalized here about a week ago for DKA, and states he has been "trying" to take his insulin, but has not been doing so completely the way he was supposed to. He is noted to have an elevated blood sugar at triage and is noted to be Kussmaul breathing. He appears ill. He is not having any abdominal pain and has not had any diarrhea or bloody emesis. He denies any chest pain or fevers. There are no alleviating or exacerbating factors to his symptoms. Review of Systems Review of Systems Constitutional: Denies fever or chills [] Eyes: Denies change in visual acuity, redness, or eye pain [] HENT: Denies nasal congestion or sore throat [] Respiratory: Denies cough or pleuritic pain[] Cardiovascular: The patient denies any chest pain, palpitations, or orthopnea [] GI: Denies abdominal pain bloody stools or diarrhea [] : Denies dysuria or hematuria [] Musculoskeletal: Denies back pain or joint pain [] Integument: Denies rash or skin lesions [] Neurologic: Denies headache, focal weakness or sensory changes [] Endocrine: Denies polyuria or polydipsia [] All other systems were reviewed and found to be within normal limits, except as documented in this note. Current Medications Current Medications Current Medications Medications (Trade) Dose Ordered Sig/Nam Start Time Stop Time Status Last Admin Dose Admin Insulin Human Regular 150 ml @ As Directed STK-MED ONCE 01/27/18 06:10 01/27/18 06:11 DC Ondansetron HCl (Zofran) 4 mg STK-MED ONCE 01/27/18 06:12 01/27/18 06:13 DC Sodium Chloride 1,000 ml @ 125 mls/hr 1X ONCE 01/27/18 07:30 01/27/18 15:29 Allergies Allergies Allergies Coded Allergies Type Severity Reaction Last Updated Verified Penicillins Allergy Intermediate 05/27/15 Yes amoxicillin Allergy Intermediate 05/27/15 Yes cefaclor Allergy Intermediate 05/04/16 Yes Physical Exam Physical Exam PHYSICAL EXAM: CONSTITUTIONAL: Well developed, well nourished HEAD: normocephalic, atraumatic EENT: PERRL, EOMI. Conjunctivae normal color, sclerae non-icteric; moist mucous membranes. NECK: Supple, non-tender; no meningismus. LUNGS: Lungs CTA, Kussmaul breathing is noted. HEART: Regular rate and rhythm, no murmur CHEST: No deformity; non-tender ABDOMEN: The abdomen is soft, and non-tender, no masses or bruits. Normal bowel sounds are present. EXTREM: Normal ROM; no deformity, no calf tenderness. Normal pulses palpable in all extremities. There is no pedal edema. SKIN: No rash; no diaphoresis NEURO: Alert; normal speech and cognition; CN's grossly intact; strength grossly intact without focal deficit. BACK: No CVA TTP. Current Patient Data Vital Signs Vital Signs Date Time Temp Pulse Resp B/P (MAP) Pulse Ox O2 Delivery O2 Flow Rate FiO2 01/27/18 05:51 103 16 165/93 (117) 99 Room Air Lab Values Laboratory Tests Test 01/27/18 05:52 01/27/18 06:00 01/27/18 06:52 Glucose (Fingerstick) 465 mg/dL (70-99) H White Blood Count 11.2 x10^3/uL (4.0-11.0) H Red Blood Count 5.20 x10^6/uL (4.30-5.70) Hemoglobin 17.3 g/dL (13.0-17.5) Hematocrit 50.5 % (39.0-53.0) Mean Corpuscular Volume 97 fL (79-100) Mean Corpuscular Hemoglobin 33 pg (25-35) Mean Corpuscular Hemoglobin Concent 34 g/dL (31-37) Red Cell Distribution Width 13.7 % (11.5-14.5) Platelet Count 357 x10^3/uL (140-400) Neutrophils (%) (Auto) 66 % (31-73) Lymphocytes (%) (Auto) 27 % (24-48) Monocytes (%) (Auto) 7 % (0-9) Eosinophils (%) (Auto) 0 % (0-3) Basophils (%) (Auto) 1 % (0-3) Neutrophils # (Auto) 7.3 x10^3uL (1.8-7.7) Lymphocytes # (Auto) 3.0 x10^3/uL (1.0-4.8) Monocytes # (Auto) 0.8 x10^3/uL (0.0-1.1) Eosinophils # (Auto) 0.0 x10^3/uL (0.0-0.7) Basophils # (Auto) 0.1 x10^3/uL (0.0-0.2) Sodium Level 137 mmol/L (136-145) Potassium Level 4.8 mmol/L (3.5-5.1) Chloride Level 93 mmol/L (98-107) L Carbon Dioxide Level 12 mmol/L (21-32) L Anion Gap 32 (6-14) H Blood Urea Nitrogen 14 mg/dL (8-26) Creatinine 1.2 mg/dL (0.7-1.3) Estimated GFR (Cockcroft-Gault) 77.2 BUN/Creatinine Ratio 12 (6-20) Glucose Level 459 mg/dL (70-99) H Calcium Level 10.3 mg/dL (8.5-10.1) H Phosphorus Level 4.7 mg/dL (2.6-4.7) Magnesium Level 2.1 mg/dL (1.8-2.4) Total Bilirubin 0.4 mg/dL (0.2-1.0) Aspartate Amino Transferase (AST) 39 U/L (15-37) H Alanine Aminotransferase (ALT) 50 U/L (16-63) Alkaline Phosphatase 145 U/L (46-116) H Total Protein 9.7 g/dL (6.4-8.2) H Albumin 5.1 g/dL (3.4-5.0) H Albumin/Globulin Ratio 1.1 (1.0-1.7) POC Venous pH 7.18 (7.32-7.42) L POC Venous pCO2 16 mmHg (41-51) L POC Venous pO2 117 mmHg (20-40) H Venous Blood HCO3 6 mmol/L (24-28) L POC Venous O2 Saturation (Veronica) 98 % POC FiO2 21.0 Laboratory Tests 01/27/18 06:00 Laboratory Tests 01/27/18 06:00 EKG EKG [Normal sinus rhythm at a rate of 103 beats for minute, rightward axis, normal intervals, nonspecific ST/T changes.] Radiology/Procedures Radiology/Procedures [] Course & Med Decision Making Course & Med Decision Making Pertinent Labs and Imaging studies reviewed. (See chart for details) 7:05 AM: The patient's condition remained stable. I have paged his doctor, Dr. Riggs, to admit the patient to the hospital. CRITICAL CARE TIME: 45 Minutes, excluding any procedures and care of other patients. Dragon Disclaimer Dragon Disclaimer This electronic medical record was generated, in whole or in part, using a voice recognition dictation system. Departure Departure Impression: Primary Impression: DKA (diabetic ketoacidoses) Disposition: ADMITTED INPATIENT Admitting Physician: Talia Riggs Condition: GUARDED Referrals: Edel RIGGS MD (PCP) JUAN MCLAUGHLIN MD Jan 27, 2018 06:22
[2018-01-27] MEDS ORDERED: IV NORMAL SALINE 1000ML BAG 1,000 ML IV SCH (06:30)
[2018-01-27] MEDS ORDERED: IV NORMAL SALINE 1000ML BAG 1,000 ML IV ONE ×2 (06:30→07:30)
[2018-01-27] MEDS ORDERED: ONDANSETRON PF 4 MG/2 ML VIAL. IV ONE (06:30)
[2018-01-27 06:31] LABS: BASO # 0.1 x10^3/uL (0.0-0.2); BASO % 1 % (0-3); EOS % 0 % (0-3); HEMATOCRIT 50.5 % (39.0-53.0); HEMOGLOBIN 17.3 g/dL (13.0-17.5); LYMPH % 27 % (24-48); MEAN CORPUSCULAR HEMOGLOBIN 33 pg (25-35); MEAN CORPUSCULAR HGB CONC 34 g/dL (31-37); MEAN CORPUSCULAR VOLUME 97 fL (79-100); MONO # 0.8 x10^3/uL (0.0-1.1); MONO % 7 % (0-9); NEUT # 7.3 x10^3uL (1.8-7.7); NEUT % 66 % (31-73); PLATELET COUNT 357 x10^3/uL (140-400); RED CELL DISTRIBUTION WIDTH 13.7 % (11.5-14.5); WHITE BLOOD COUNT 11.2 x10^3/uL (4.0-11.0)
[2018-01-27 06:38] LABS: ALBUMIN 5.1 g/dL (3.4-5.0); ALBUMIN/GLOBULIN RATIO 1.1 (1.0-1.7); CALCIUM 10.3 mg/dL (8.5-10.1); CREATININE 1.2 mg/dL (0.7-1.3); GFR 77.2; MAGNESIUM 2.1 mg/dL (1.8-2.4); PHOSPHORUS 4.7 mg/dL (2.6-4.7); POTASSIUM 4.8 mmol/L (3.5-5.1); TOTAL BILIRUBIN 0.4 mg/dL (0.2-1.0); TOTAL PROTEIN 9.7 g/dL (6.4-8.2)
[2018-01-27 06:56] LABS: ISTAT BE VENOUS -22 mmol/L (0-3); ISTAT HCO3 VEN 6 mmol/L (24-28); ISTAT PCO2 VEN 16 mmHg (41-51); ISTAT PH VEN 7.18 (7.32-7.42); ISTAT PO2 VEN 117 mmHg (20-40); ISTAT SAT O2 VEN 98 %; ISTAT TCO2 VEN 7 mmol/L (21-32)
[2018-01-27] MEDS ORDERED: ACETAMINOPHEN 500 MG TABLET PO ONE (07:15)
[2018-01-27 07:16] LABS: BILIRUBIN,URINE NEGATIVE (NEG); CLARITY,URINE CLEAR; COLOR,URINE YELLOW; NITRITE,URINE NEGATIVE (NEG); PROTEIN,URINE 30 mg/dL (NEG-TRACE); UROBILINOGEN,URINE 0.2 mg/dL (0.2 mg/dL)
[2018-01-27 07:35] LABS: BACTERIA,URINE 0 /HPF (0-FEW); RBC,URINE 0 /HPF (0-2); SQUAMOUS EPITHELIAL CELL,UR FEW /LPF; WBC,URINE 0 /HPF (0-4)
[2018-01-27] MEDS: IV DEXTROSE 5% - 0.9 % NACL 1,000 ML IV SCH ×3 (08:45→17:23)
[2018-01-27] MEDS ORDERED: ACETAMINOPHEN 500 MG TABLET PO PRN (09:15)
--- NOTE | 2018-01-27 09:20 | PDOC ---
PROGRESS NOTES Subjective Subjective Patient reports some abdominal pain and headache. Objective Objective Vital Signs Date Time Temp Pulse Resp B/P (MAP) Pulse Ox O2 Delivery O2 Flow Rate FiO2 01/27/18 08:00 104 151/75 (100) 100 Room Air 01/27/18 05:51 16 Physical Exam Abdomen: Normal bowel sounds, Soft, No tenderness Heart: Regular rate Extremities: No edema General: Alert, Oriented X3, No acute distress Lungs: Clear to auscultation Assessment Assessment Problems Medical Problems: (1) DKA (diabetic ketoacidoses) Status: Acute Plan Plan of Care 1. DM 1 with DKA - similar to admission last week. Patient chronically noncompliant with his insulins. Stable, continue fluids and insulin. Patient well aware of the importance of better control of his diabetes. 2. hx polysubstance abuse - no evidence of withdrawal at this time. No UDS on chart, patient was positive for cocaine on previous admissions. 3. abdominal pain - mother reports patient often complains of this, especially when his blood sugar is elevated. She states this has not been evaluated previously. CT ordered, exam benign. Comment Review of Relevant I have reviewed the following items aline (where applicable) has been applied. Labs Laboratory Tests Test 01/27/18 05:52 01/27/18 06:00 01/27/18 06:12 01/27/18 06:52 Glucose (Fingerstick) 465 mg/dL (70-99) White Blood Count 11.2 x10^3/uL (4.0-11.0) Red Blood Count 5.20 x10^6/uL (4.30-5.70) Hemoglobin 17.3 g/dL (13.0-17.5) Hematocrit 50.5 % (39.0-53.0) Mean Corpuscular Volume 97 fL (79-100) Mean Corpuscular Hemoglobin 33 pg (25-35) Mean Corpuscular Hemoglobin Concent 34 g/dL (31-37) Red Cell Distribution Width 13.7 % (11.5-14.5) Platelet Count 357 x10^3/uL (140-400) Neutrophils (%) (Auto) 66 % (31-73) Lymphocytes (%) (Auto) 27 % (24-48) Monocytes (%) (Auto) 7 % (0-9) Eosinophils (%) (Auto) 0 % (0-3) Basophils (%) (Auto) 1 % (0-3) Neutrophils # (Auto) 7.3 x10^3uL (1.8-7.7) Lymphocytes # (Auto) 3.0 x10^3/uL (1.0-4.8) Monocytes # (Auto) 0.8 x10^3/uL (0.0-1.1) Eosinophils # (Auto) 0.0 x10^3/uL (0.0-0.7) Basophils # (Auto) 0.1 x10^3/uL (0.0-0.2) Sodium Level 137 mmol/L (136-145) Potassium Level 4.8 mmol/L (3.5-5.1) Chloride Level 93 mmol/L (98-107) Carbon Dioxide Level 12 mmol/L (21-32) Anion Gap 32 (6-14) Blood Urea Nitrogen 14 mg/dL (8-26) Creatinine 1.2 mg/dL (0.7-1.3) Estimated GFR (Cockcroft-Gault) 77.2 BUN/Creatinine Ratio 12 (6-20) Glucose Level 459 mg/dL (70-99) Calcium Level 10.3 mg/dL (8.5-10.1) Phosphorus Level 4.7 mg/dL (2.6-4.7) Magnesium Level 2.1 mg/dL (1.8-2.4) Total Bilirubin 0.4 mg/dL (0.2-1.0) Aspartate Amino Transf (AST/SGOT) 39 U/L (15-37) Alanine Aminotransferase (ALT/SGPT) 50 U/L (16-63) Alkaline Phosphatase 145 U/L (46-116) Total Protein 9.7 g/dL (6.4-8.2) Albumin 5.1 g/dL (3.4-5.0) Albumin/Globulin Ratio 1.1 (1.0-1.7) Acetone Level Sm pos (NEG) Bedside Venous pH 7.18 (7.32-7.42) Bedside Venous pCO2 16 mmHg (41-51) Bedside Venous pO2 117 mmHg (20-40) Venous Blood HCO3 6 mmol/L (24-28) POC Venous O2 Saturation (Veronica) 98 % Bedside FiO2 21.0 Test 01/27/18 07:10 01/27/18 07:49 01/27/18 08:26 Urine Collection Type Unknown Urine Color Yellow Urine Clarity Clear Urine pH 5.0 Urine Specific [place] >=1.030 Urine Protein 30 mg/dL (NEG-TRACE) Urine Glucose (UA) >=1000 mg/dL (NEG) Urine Ketones (Stick) >=80 mg/dL (NEG) Urine Blood Negative (NEG) Urine Nitrite Negative (NEG) Urine Bilirubin Negative (NEG) Urine Urobilinogen Dipstick 0.2 mg/dL (0.2 mg/dL) Urine Leukocyte Esterase Negative (NEG) Urine RBC 0 /HPF (0-2) Urine WBC 0 /HPF (0-4) Urine Squamous Epithelial Cells Few /LPF Urine Bacteria 0 /HPF (0-FEW) Glucose (Fingerstick) 280 mg/dL (70-99) 228 mg/dL (70-99) Laboratory Tests Test 01/27/18 05:52 01/27/18 06:00 01/27/18 06:12 01/27/18 06:52 Glucose (Fingerstick) 465 mg/dL (70-99) White Blood Count 11.2 x10^3/uL (4.0-11.0) Red Blood Count 5.20 x10^6/uL (4.30-5.70) Hemoglobin 17.3 g/dL (13.0-17.5) Hematocrit 50.5 % (39.0-53.0) Mean Corpuscular Volume 97 fL (79-100) Mean Corpuscular Hemoglobin 33 pg (25-35) Mean Corpuscular Hemoglobin Concent 34 g/dL (31-37) Red Cell Distribution Width 13.7 % (11.5-14.5) Platelet Count 357 x10^3/uL (140-400) Neutrophils (%) (Auto) 66 % (31-73) Lymphocytes (%) (Auto) 27 % (24-48) Monocytes (%) (Auto) 7 % (0-9) Eosinophils (%) (Auto) 0 % (0-3) Basophils (%) (Auto) 1 % (0-3) Neutrophils # (Auto) 7.3 x10^3uL (1.8-7.7) Lymphocytes # (Auto) 3.0 x10^3/uL (1.0-4.8) Monocytes # (Auto) 0.8 x10^3/uL (0.0-1.1) Eosinophils # (Auto) 0.0 x10^3/uL (0.0-0.7) Basophils # (Auto) 0.1 x10^3/uL (0.0-0.2) Sodium Level 137 mmol/L (136-145) Potassium Level 4.8 mmol/L (3.5-5.1) Chloride Level 93 mmol/L (98-107) Carbon Dioxide Level 12 mmol/L (21-32) Anion Gap 32 (6-14) Blood Urea Nitrogen 14 mg/dL (8-26) Creatinine 1.2 mg/dL (0.7-1.3) Estimated GFR (Cockcroft-Gault) 77.2 BUN/Creatinine Ratio 12 (6-20) Glucose Level 459 mg/dL (70-99) Calcium Level 10.3 mg/dL (8.5-10.1) Phosphorus Level 4.7 mg/dL (2.6-4.7) Magnesium Level 2.1 mg/dL (1.8-2.4) Total Bilirubin 0.4 mg/dL (0.2-1.0) Aspartate Amino Transf (AST/SGOT) 39 U/L (15-37) Alanine Aminotransferase (ALT/SGPT) 50 U/L (16-63) Alkaline Phosphatase 145 U/L (46-116) Total Protein 9.7 g/dL (6.4-8.2) Albumin 5.1 g/dL (3.4-5.0) Albumin/Globulin Ratio 1.1 (1.0-1.7) Acetone Level Sm pos (NEG) Bedside Venous pH 7.18 (7.32-7.42) Bedside Venous pCO2 16 mmHg (41-51) Bedside Venous pO2 117 mmHg (20-40) Venous Blood HCO3 6 mmol/L (24-28) POC Venous O2 Saturation (Veronica) 98 % Bedside FiO2 21.0 Test 01/27/18 07:10 01/27/18 07:49 01/27/18 08:26 Urine Collection Type Unknown Urine Color Yellow Urine Clarity Clear Urine pH 5.0 Urine Specific [place] >=1.030 Urine Protein 30 mg/dL (NEG-TRACE) Urine Glucose (UA) >=1000 mg/dL (NEG) Urine Ketones (Stick) >=80 mg/dL (NEG) Urine Blood Negative (NEG) Urine Nitrite Negative (NEG) Urine Bilirubin Negative (NEG) Urine Urobilinogen Dipstick 0.2 mg/dL (0.2 mg/dL) Urine Leukocyte Esterase Negative (NEG) Urine RBC 0 /HPF (0-2) Urine WBC 0 /HPF (0-4) Urine Squamous Epithelial Cells Few /LPF Urine Bacteria 0 /HPF (0-FEW) Glucose (Fingerstick) 280 mg/dL (70-99) 228 mg/dL (70-99) Medications Current Medications Insulin Human Regular 150 ml @ 7 mls/hr 1X ONCE IV Last administered on at 06:39; Start 01/27/18 at 06:30; Stop 01/28/18 at 03:55 Insulin Human Regular 150 ml @ As Directed STK-MED ONCE IV ; Start 01/27/18 at 06:10; Stop 01/27/18 at 06:11; Status DC Sodium Chloride 1,000 ml @ 1,000 mls/hr Q1H IV Last administered on 01/27/18at 07:00; Start 01/27/18 at 06:30; Stop 01/27/18 at 07:29; Status DC Ondansetron HCl (Zofran) 4 mg 1X ONCE IV Last administered on 01/27/18at 06:13 ; Start 01/27/18 at 06:30; Stop 01/27/18 at 06:31; Status DC Sodium Chloride 1,000 ml @ 1,000 mls/hr 1X ONCE IV Last administered on at 06:15; Start 01/27/18 at 06:30; Stop 01/27/18 at 07:29; Status DC Sodium Chloride 1,000 ml @ 125 mls/hr 1X ONCE IV ; Start 01/27/18 at 07:30; Stop 01/27/18 at 15:29 Ondansetron HCl (Zofran) 4 mg STK-MED ONCE .ROUTE ; Start 01/27/18 at 06:12; Stop 01/27/18 at 06:13; Status DC Acetaminophen (Tylenol) 1,000 mg 1X ONCE PO Last administered on 01/27/18at 07: 15; Start 01/27/18 at 07:15; Stop 01/27/18 at 07:16; Status DC Dextrose/Sodium Chloride 1,000 ml @ 250 mls/hr Q4H IV Last administered on 01/27/18at 08:45; Start 01/27/18 at 08:45 Active Scripts Active Proair Hfa (Albuterol Sulfate) 8.5 Gm Hfa.aer.ad 8.5 Gm IH TID PRN 30 Days Zithromax Packet (Azithromycin) 1 Gm Packet 1 Packet PO ONCE Reported Novolog Flexpen (Insulin Aspart) 100 Unit/1 Ml Insuln.pen 15 Units SQ QIDACHS Basaglar Kwikpen U-100 (Insulin Glargine,Hum.rec.anlog) 100 Unit/1 Ml Insuln.pen 40 Units SQ HS Vitals/I & O Vital Sign - Last 24 Hours 01/27/18 01/27/18 01/27/18 01/27/18 05:51 06:30 07:00 07:30 Pulse 103 103 104 116 Resp 16 B/P (MAP) 165/93 (117) 161/84 (109) 169/87 (114) 157/88 (111) Pulse Ox 99 100 99 O2 Delivery Room Air Room Air Room Air Room Air 01/27/18 08:00 Pulse 104 B/P (MAP) 151/75 (100) Pulse Ox 100 O2 Delivery Room Air TWIN KATZ MD Jan 27, 2018 09:20
[2018-01-27 09:37] LABS: CREATININE 0.8 mg/dL (0.7-1.3); GFR 123.2; POTASSIUM 4.5 mmol/L (3.5-5.1)
[2018-01-27 09:40] LABS: MAGNESIUM 1.9 mg/dL (1.8-2.4); PHOSPHORUS 3.1 mg/dL (2.6-4.7)
--- NOTE | 2018-01-27 09:47 | HP ---
ADMIT DATE: 01/27/2018 CHIEF COMPLAINT: Nausea and vomiting. HISTORY OF PRESENT ILLNESS: The patient is a 22-year-old male with type 1 diabetes, who was just admitted to the hospital 1 week ago for treatment of diabetic ketoacidosis. He was discharged home on his usual insulin, but is only partially compliant with these. He came to the Emergency Room, reporting the onset of emesis several hours earlier. It is unknown when he had last taken insulin or checked his blood sugar. Initial evaluation in the Emergency Room showed him to be positive for ketones and he had an initial blood sugar of 465. Treatment was started and he was admitted for further care. PAST MEDICAL HISTORY: Diabetes mellitus type 1 diagnosed at age 14 and history of substance abuse. PAST SURGICAL HISTORY: None. ALLERGIES: PENICILLIN and CEFACLOR. HOME MEDICATIONS: The patient is prescribed NovoLog insulin 15 units t.i.d. a.c. and Lantus insulin 40 units at bedtime. FAMILY HISTORY: Noncontributory. SOCIAL HISTORY: The patient is single. He smokes cigarettes. He has had drug use in the past including cocaine and he does drink alcohol to excess at times. REVIEW OF SYSTEMS: The patient has not had fever or chills. He has not had a cough or shortness of breath. He has not had chest pain. He has not had a flu shot and declines one. He has some intermittent diffuse abdominal pain that occurs when his blood sugars are high. He has diarrhea at times. He complains of low back pain intermittently. He sometimes has a headache when his blood sugars are elevated. PHYSICAL EXAMINATION: GENERAL: The patient is alert and oriented x 3, resting comfortably in bed, in no acute distress. HEENT: PERRL, EOMI, sclerae clear. Oropharynx: Mucous membranes moist. NECK: Supple, without lymphadenopathy. CHEST: Clear to auscultation. CARDIOVASCULAR: Regular rhythm without murmur. ABDOMEN: Soft, nontender, normoactive bowel sounds are present. EXTREMITIES: Without edema. ASSESSMENT AND PLAN: 1. Diabetes mellitus type 1 with diabetic ketoacidosis. The patient's condition is very similar to that at his admission here last week. He is chronically noncompliant with his insulins. His symptoms have already improved with IV fluids and an insulin drip. We will continue these per protocol and follow his electrolytes. The patient is well aware of the importance of better control of his diabetes and this has been discussed with him on multiple occasions. 2. History of polysubstance abuse. No evidence of withdrawal at this time. A urine drug screen was not done on this admission, but the patient has been positive for cocaine in the past. The patient continues to smoke cigarettes, he declines a nicotine patch at this time. 3. Abdominal pain. The patient's mother reports that he often complains of this and she is concerned as this has not been evaluated previously. A CT of the abdomen and pelvis with oral contrast has been ordered. TWIN KATZ MD DR: DAVID/victoriano JOB#: [id number] / [id number] LISA
[2018-01-27] MEDS ORDERED: CONTRAST GIVEN. MC PRN (10:30)
[2018-01-27] MEDS ORDERED: IOHEXOL 240 MG/ML 50ML VIAL. PO ONE (10:30)
--- NOTE | 2018-01-27 11:42 | EKG ---
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
--- NOTE | 2018-01-27 13:26 | RAD ---
CT of the abdomen and pelvis without contrast, 01/27/2018: HISTORY: Abdominal pain Multidetector CT imaging was performed without IV contrast as requested. Oral contrast material was administered for GI tract opacification. The unopacified liver is unremarkable. No gallbladder abnormality is seen. The pancreas is unremarkable. The spleen is of normal size. The unopacified kidneys show no abnormality. The urinary bladder is mildly distended. The bowel loops are not dilated. A portion of the appendix is visualized and it is unremarkable. Several small mesenteric lymph nodes are noted in the right lower quadrant without pathologic enlargement. No free air or free fluid is evident in the abdomen or pelvis. IMPRESSION: No acute abdominal or pelvic abnormality is detected. PQRS Compliance Statement: One or more of the following individualized dose reduction techniques were utilized for this examination: 1. Automated exposure control 2. Adjustment of the mA and/or kV according to patient size 3. Use of iterative reconstruction technique Electronically signed by: Memo Davis MD (01/27/2018 1:22 PM) [facility]
[2018-01-27 13:49] LABS: CALCIUM 8.7 mg/dL (8.5-10.1); CREATININE 0.8 mg/dL (0.7-1.3); GFR 123.2; POTASSIUM 3.7 mmol/L (3.5-5.1)
[2018-01-27 13:50] LABS: MAGNESIUM 1.8 mg/dL (1.8-2.4)
[2018-01-27] MEDS ORDERED: SODIUM PHOSPHATE 20 MMOL in IV DEXTROSE 5% 250 ML IV PRN (14:15)
[2018-01-27] MEDS ORDERED: SODIUM PHOSPHATE 20 MMOL in IV DEXTROSE 5% 250 ML IV ONE (14:30)
[2018-01-27] MEDS ORDERED: NORMAL SALINE IV ONE (14:30)
[2018-01-27] MEDS ORDERED: POTASSIUM ACETATE IV ONE (14:30)
[2018-01-27] MEDS ORDERED: POTASSIUM CHLORIDE 40 MEQ in IV NORMAL SALINE 500ML BAG 500 ML IV ONE (14:30)
[2018-01-27] MEDS ORDERED: MAGNESIUM SULFATE 4GM 100 ML IV SCH (15:15)
[2018-01-27] MEDS ORDERED: HYDROCORTISONE 1% TOPICAL OINTMENT 30GM TUBE. TP PRN (17:00)
[2018-01-27 19:35] LABS: CALCIUM 8.3 mg/dL (8.5-10.1); CREATININE 0.8 mg/dL (0.7-1.3); GFR 123.2; POTASSIUM 3.9 mmol/L (3.5-5.1)
[2018-01-27] MEDS ORDERED: DEXTROSE 50% 25 GM / 50ML DISP.SYRIN. IV PRN (20:30)
[2018-01-27] MEDS ORDERED: INSULIN GLARGINE 300 UNITS/3 ML INSULN.PEN. SQ SCH (21:00)
[2018-01-28] MEDS ORDERED: INSULIN LISPRO 300 UNITS/3 ML INSULN.PEN. SQ SCH (08:00)
[2018-01-28] MEDS ORDERED: MAGNESIUM SULFATE 4GM 100 ML IV SCH (09:00)
--- NOTE | 2018-01-28 15:57 | DS ---
DATE OF DISCHARGE: 01/27/2018 CHIEF COMPLAINT: Nausea and vomiting. HISTORY OF PRESENT ILLNESS: The patient is a 22-year-old male with type 1 diabetes who was just admitted to the hospital 1 week ago for treatment of diabetic ketoacidosis. He was discharged home on his usual insulins, but is only partially compliant with these. He came to the Emergency Department reporting the onset of emesis several hours earlier. It is unknown when he had last taken insulin or checked his blood sugar. Initial evaluation in the Emergency Room showed him to be positive for ketones and he had a blood sugar of 465. Treatment was started and he was admitted for further care. HOSPITAL COURSE: The patient was started on IV fluids and an insulin drip per protocol. He had a prompt improvement in his symptoms and in his blood sugars with this treatment. CT of the abdomen and pelvis was done due to his complaints of intermittent abdominal pain. This CT was unremarkable. The patient's insulin drip was stopped on the evening of 01/27/2018. He then left the hospital against medical advice. FINAL DIAGNOSES: 1. Diabetes mellitus type 2 with diabetic ketoacidosis. 2. Noncompliance with medications. DISCHARGE MEDICATIONS: Remains the same as at admission. FOLLOWUP: With Dr. Peralta as advised. TWIN KATZ MD DR: DAVID/victoriano JOB#: [id number] / [id number] LISA
== END 2018-01-27 22:18 | disposition left against medical advice (07) | DRG 639 ==
LOC: ER 05:47 → 1 WEST ICU 07:40
PROVIDERS: ADMIT Family Medicine; ATTEND Family Medicine
DX: E11.10 Type 2 diabetes mellitus with ketoacidosis without coma (principal); F17.210 Nicotine dependence, cigarettes, uncomplicated; Z79.4 Long term (current) use of insulin; Z91.14 Patient's other noncompliance with medication regimen
CPT/HCPCS: 36415; 74176; 80048; 80053; 81001; 82010; 82803; 82962; 83735; 84100; 85025; 87641; 93005; J1815; J2405; J3475; J3480; J7030; J7040; J7042; Q9966

== ENCOUNTER 2018-04-26 10:02 | Emergency (ER) | payer OTHER ==
[~2018-04-26] VITALS: Ht 175.3 cm; Wt 63.5 kg
[~2018-04-26 10:02] MED LIST changes: +ALBU2.5V8 IH; -ALBU8.5H8 IH
[2018-04-26] MEDS ORDERED: ONDANSETRON PF 4 MG/2 ML VIAL. ONE (10:14)
[2018-04-26 10:20] VITALS: BP 151/91
[2018-04-26] MEDS ORDERED: ONDANSETRON PF 4 MG/2 ML VIAL. IV ONE (10:40)
[2018-04-26] MEDS ORDERED: IV NORMAL SALINE 1000ML BAG 1,000 ML IV SCH (10:52)
--- NOTE | 2018-04-26 10:56 | PHYS DOC ---
Past Medical History Past Medical History: Diabetes-Type I Past Surgical History: No Surgical History Alcohol Use: Occasionally Drug Use: Cocaine, Marijuana Adult General Chief Complaint Chief Complaint: NAUSEA/VOMITING/DIARRHA HPI HPI Patient is a 22-year-old male with a history of insulin-dependent diabetes, who reports only occasional use of his insulin (he states he does not like to stick himself with needles), who presents to the emergency department for evaluation. His main complaint is vomiting, which she states has been posttussive. He states that the cough hard that he has vomited. He states he slipped on the ice about a week and a half ago, and injured his right posterior rib area. He does report pain with deep breathing. He has not had any abdominal pain, diarrhea, anterior chest pain, shortness of breath, dizziness or lightheadedness, numbness , or weakness. He states he last took a dose of insulin this morning, and took a dose yesterday as well. His blood sugar is noted to be 389. There are no alleviating or exacerbating factors to his symptoms otherwise. Review of Systems Review of Systems Constitutional: Denies fever or chills [] Eyes: Denies change in visual acuity, redness, or eye pain [] HENT: Denies nasal congestion or sore throat [] Respiratory: Denies cough or shortness of breath [] Cardiovascular: No additional information not addressed in HPI [] GI: Denies abdominal pain, bloody stools or diarrhea [] : Denies dysuria or hematuria [] Musculoskeletal: Denies back pain or joint pain [] Integument: Denies rash or skin lesions [] Neurologic: Denies headache, focal weakness or sensory changes [] Endocrine: Denies polyuria or polydipsia [] All other systems were reviewed and found to be within normal limits, except as documented in this note. Current Medications Current Medications Current Medications Medications (Trade) Dose Ordered Sig/Nam Start Time Stop Time Status Last Admin Dose Admin Insulin Human Regular 150 ml @ 0 mls/hr 1X ONCE 04/26/18 11:30 04/26/18 11:31 DC Ondansetron HCl (Zofran) 4 mg 1X ONCE 04/26/18 10:40 04/26/18 11:06 DC 04/26/18 10:40 4 MG Sodium Chloride 1,000 ml @ 1,000 mls/hr Q1H 04/26/18 10:52 04/26/18 11:51 04/26/18 10:40 1,000 MLS/HR Allergies Allergies Allergies Coded Allergies Type Severity Reaction Last Updated Verified Penicillins Allergy Intermediate 05/27/15 Yes amoxicillin Allergy Intermediate 05/27/15 Yes cefaclor Allergy Intermediate 05/04/16 Yes Physical Exam Physical Exam PHYSICAL EXAM: CONSTITUTIONAL: Well developed, well nourished HEAD: normocephalic, atraumatic EENT: PERRL, EOMI. Conjunctivae normal color, sclerae non-icteric; moist mucous membranes. NECK: Supple, non-tender; no meningismus. LUNGS: Lungs CTA, breathing even and unlabored. Normal air movement. HEART: Regular rate and rhythm, no murmur CHEST: No deformity; non-tender. There is mild tenderness to palpation of the right posterior medial upper rib, along the inferior medial scapular border, without any crepitus or deformity. ABDOMEN: The abdomen is soft, and non-tender, no masses or bruits. EXTREM: Normal ROM; no deformity, no calf tenderness. Normal pulses palpable in all extremities. There is no pedal edema. SKIN: No rash; no diaphoresis NEURO: Alert; normal speech and cognition; CN's grossly intact; strength grossly intact without focal deficit. BACK: No CVA TTP. Current Patient Data Vital Signs Vital Signs Date Time Temp Pulse Resp B/P (MAP) Pulse Ox O2 Delivery O2 Flow Rate FiO2 04/26/18 10:20 97.3 110 22 151/91 (111) 97 Room Air 97.3 Lab Values Laboratory Tests Test 04/26/18 10:16 04/26/18 10:25 Glucose (Fingerstick) 389 mg/dL (70-99) H White Blood Count 10.5 x10^3/uL (4.0-11.0) Red Blood Count 4.92 x10^6/uL (4.30-5.70) Hemoglobin 16.0 g/dL (13.0-17.5) Hematocrit 48.0 % (39.0-53.0) Mean Corpuscular Volume 98 fL (79-100) Mean Corpuscular Hemoglobin 33 pg (25-35) Mean Corpuscular Hemoglobin Concent 33 g/dL (31-37) Red Cell Distribution Width 13.0 % (11.5-14.5) Platelet Count 287 x10^3/uL (140-400) Neutrophils (%) (Auto) 79 % (31-73) H Lymphocytes (%) (Auto) 9 % (24-48) L Monocytes (%) (Auto) 12 % (0-9) H Eosinophils (%) (Auto) 0 % (0-3) Basophils (%) (Auto) 0 % (0-3) Neutrophils # (Auto) 8.3 x10^3uL (1.8-7.7) H Lymphocytes # (Auto) 0.9 x10^3/uL (1.0-4.8) L Monocytes # (Auto) 1.3 x10^3/uL (0.0-1.1) H Eosinophils # (Auto) 0.0 x10^3/uL (0.0-0.7) Basophils # (Auto) 0.0 x10^3/uL (0.0-0.2) Sodium Level 132 mmol/L (136-145) L Potassium Level 4.7 mmol/L (3.5-5.1) Chloride Level 94 mmol/L (98-107) L Carbon Dioxide Level 10 mmol/L (21-32) *L Anion Gap 28 (6-14) H Blood Urea Nitrogen 18 mg/dL (8-26) Creatinine 1.3 mg/dL (0.7-1.3) Estimated GFR (Cockcroft-Gault) 70.4 BUN/Creatinine Ratio 14 (6-20) Glucose Level 433 mg/dL (70-99) H Calcium Level 9.7 mg/dL (8.5-10.1) Total Bilirubin 0.5 mg/dL (0.2-1.0) Aspartate Amino Transferase (AST) 19 U/L (15-37) Alanine Aminotransferase (ALT) 26 U/L (16-63) Alkaline Phosphatase 147 U/L (46-116) H Total Protein 8.7 g/dL (6.4-8.2) H Albumin 4.0 g/dL (3.4-5.0) Albumin/Globulin Ratio 0.9 (1.0-1.7) L Acetone Level Sm pos (NEG) Laboratory Tests 04/26/18 10:25 Laboratory Tests 04/26/18 10:25 EKG EKG [Normal sinus rhythm a rate of 10 5 bpm, rightward axis, normal intervals. There are no acute ischemic ST/T changes.] Radiology/Procedures Radiology/Procedures [PROCEDURE: CHEST PA & LATERAL PROCEDURE: CHEST PA LATERAL CLINICAL INDICATION: COUGH, SOB, RUNNY NOSE, POSTERIOR RIB/ CHEST WALL PAIN POST FALL, SLIPPED ON THE ICE. COMPARISON: None FINDINGS: No pneumothorax identified. Cardiac and mediastinal contours unremarkable. No pulmonary consolidation or acute airspace disease. No acute osseous abnormalities identified. IMPRESSION: No pulmonary consolidation or acute airspace disease. ] Course & Med Decision Making Course & Med Decision Making Pertinent Labs and Imaging studies reviewed. (See chart for details) [11:35 AM:The patient's condition remains stable. Discussed the patient's test results with him, the need for hospitalization but he adamantly refuses, stating he can treat himself at home with his insulin. I expressed the importance of hospitalization for IV insulin in that home care with an adequate at this point for DKA but the patient absolutely declines. He expressed understanding of the risks involved, including , permanent disability, and the need to return to the emergency department when he gets sicker at home. The importance of returning were discussed in detail. The patient appeared competent and able to understand all the risks involved with his decision. Dragon Disclaimer Dragon Disclaimer This electronic medical record was generated, in whole or in part, using a voice recognition dictation system. Departure Departure Impression: Primary Impression: DKA (diabetic ketoacidoses) Disposition: 07 AGAINST MEDICAL ADVICE Condition: STABLE Referrals: Edel RIGGS MD (PCP) Patient Instructions: Diabetic Ketoacidosis, Form - Rejection of Medical Treatment (AMA) Additional Instructions: Return to medical care immediately if your agreeable to undergo further care, she develop worsening vomiting or any new symptoms. JUAN MCLAUGHLIN MD Apr 26, 2018 10:56
[2018-04-26 11:00] LABS: BASO % 0 % (0-3); EOS % 0 % (0-3); LYMPH # 0.9 x10^3/uL (1.0-4.8); LYMPH % 9 % (24-48); MEAN CORPUSCULAR HEMOGLOBIN 33 pg (25-35); MEAN CORPUSCULAR HGB CONC 33 g/dL (31-37); MEAN CORPUSCULAR VOLUME 98 fL (79-100); MONO # 1.3 x10^3/uL (0.0-1.1); MONO % 12 % (0-9); NEUT # 8.3 x10^3uL (1.8-7.7); NEUT % 79 % (31-73); PLATELET COUNT 287 x10^3/uL (140-400); RED BLOOD COUNT 4.92 x10^6/uL (4.30-5.70); WHITE BLOOD COUNT 10.5 x10^3/uL (4.0-11.0)
[2018-04-26] MEDS ORDERED: IV NORMAL SALINE 1000ML BAG 1,000 ML IV ONE (11:00)
[2018-04-26 11:17] LABS: ALBUMIN/GLOBULIN RATIO 0.9 (1.0-1.7); ALK PHOS 147 U/L (46-116); ALT (SGPT) 26 U/L (16-63); ANION GAP 28 (6-14); AST (SGOT) 19 U/L (15-37); BLOOD UREA NITROGEN 18 mg/dL (8-26); BUN/CREATININE RATIO 14 (6-20); CALCIUM 9.7 mg/dL (8.5-10.1); CHLORIDE 94 mmol/L (98-107); CREATININE 1.3 mg/dL (0.7-1.3); GFR 70.4; GLUCOSE 433 mg/dL (70-99); POTASSIUM 4.7 mmol/L (3.5-5.1); SODIUM 132 mmol/L (136-145); TOTAL BILIRUBIN 0.5 mg/dL (0.2-1.0); TOTAL PROTEIN 8.7 g/dL (6.4-8.2)
--- NOTE | 2018-04-26 11:19 | RAD ---
PROCEDURE: CHEST PA LATERAL CLINICAL INDICATION: COUGH, SOB, RUNNY NOSE, POSTERIOR RIB/ CHEST WALL PAIN POST FALL, SLIPPED ON THE ICE. COMPARISON: None FINDINGS: No pneumothorax identified. Cardiac and mediastinal contours unremarkable. No pulmonary consolidation or acute airspace disease. No acute osseous abnormalities identified. IMPRESSION: No pulmonary consolidation or acute airspace disease. Electronically signed by: Hayden Baker DO (04/26/2018 11:15 AM) [id number]
[2018-04-26 11:21] LABS: CARBON DIOXIDE 10 mmol/L (21-32)
[2018-04-26 11:25] LABS: ACETONE SM POS (NEG)
--- NOTE | 2018-04-26 11:27 | EKG ---
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
[2018-04-26] MEDS ORDERED: INSULIN,REGULAR 150 UNIT DRIP 150 ML IV ONE (11:30)
[2018-04-26 11:41] LABS: BASE EXCESS ABG -15 mmol/L (-3-3); HCO3 ABG 9 mmol/L (21-28); PO2 ABG 103 mmHg (85-108); SAT O2 ABG 97 % (92-99)
[2018-04-26 11:48] LABS: FIO2 ABG 21; PCO2 ABG 20 mmHg (35-46)
== END 2018-04-26 11:50 | disposition left against medical advice (07) ==
LOC: ER 10:02
DX: E10.10 Type 1 diabetes mellitus with ketoacidosis without coma (principal); R05 Cough; R11.10 Vomiting, unspecified; Z88.1 Allergy status to other antibiotic agents
CPT/HCPCS: 36415; 36600; 71046; 80053; 82010; 82805; 82962; 85025; 93005; 96361; 96374; 99284; J2405; J7030

== ENCOUNTER 2019-02-18 07:08 | Inpatient (IN) | payer OTHER ==
[~2019-02-18] VITALS: Ht 177.8 cm; Wt 59.0 kg
[2019-02-18] VITALS (9 sets, daily range): BP systolic 108–129; BP diastolic 53–63
[2019-02-18] MEDS ORDERED: ONDANSETRON PF 4 MG/2 ML VIAL. IVP ONE (07:30)
[2019-02-18] MEDS ORDERED: IV NORMAL SALINE 1000ML BAG 1,000 ML IV ONE ×2 (07:30→09:30)
[2019-02-18] MEDS ORDERED: FAMOTIDINE 20 MG/2 ML VIAL IVP ONE (07:30)
--- NOTE | 2019-02-18 07:38 | RAD ---
CHEST AP ONLY Clinical Indication: Shortness of air Comparison: AP chest 04/30/2018. Findings: The cardiomediastinal silhouette is normal. Lungs are clear. There is no pneumothorax. No pleural effusion is appreciated. No acute bone abnormality. IMPRESSION: No acute cardiopulmonary process. Electronically signed by: Carlitos Santo MD (02/18/2019 7:35 AM) [id number]
[2019-02-18 07:43] LABS: BASO # 0.1 x10^3/uL (0.0-0.2); BASO % 0 % (0-3); EOS % 0 % (0-3); HEMOGLOBIN 15.7 g/dL (13.0-17.5); LYMPH # 1.7 x10^3/uL (1.0-4.8); LYMPH % 8 % (24-48); MEAN CORPUSCULAR HEMOGLOBIN 33 pg (25-35); MEAN CORPUSCULAR HGB CONC 33 g/dL (31-37); MEAN CORPUSCULAR VOLUME 99 fL (79-100); MONO # 1.4 x10^3/uL (0.0-1.1); MONO % 7 % (0-9); NEUT # 17.9 x10^3/uL (1.8-7.7); NEUT % 85 % (31-73); PLATELET COUNT 353 x10^3/uL (140-400); RED BLOOD COUNT 4.74 x10^6/uL (4.30-5.70); WHITE BLOOD COUNT 21.1 x10^3/uL (4.0-11.0)
[2019-02-18] MEDS ORDERED: KETOROLAC 30 MG/ML VIAL. IVP ONE (08:00)
[2019-02-18 08:01] LABS: ALBUMIN/GLOBULIN RATIO 1.3 (1.0-1.7); CALCIUM 9.9 mg/dL (8.5-10.1); CREATININE 1.3 mg/dL (0.7-1.3); GFR 69.7; POTASSIUM 4.6 mmol/L (3.5-5.1); TOTAL BILIRUBIN 0.8 mg/dL (0.2-1.0); TOTAL PROTEIN 8.8 g/dL (6.4-8.2)
[2019-02-18 08:06] LABS: BASE EXCESS ABG -18 mmol/L (-3-3); HCO3 ABG 8 mmol/L (21-28); PO2 ABG 103 mmHg (85-108); SAT O2 ABG 96 % (92-99)
[2019-02-18 08:09] LABS: FIO2 ABG 21; PCO2 ABG 20 mmHg (35-46)
--- NOTE | 2019-02-18 09:25 | PDOC1 ---
History and Physical Date of Admission Date of Admission DATE: 02/18/19 TIME: 09:25 Identification/Chief Complaint Chief Complaint Nausea and vomiting Source Source: Caregiver, Chart review, Patient History of Present Illness History of Present Illness Mr Kelly is a 23 year old with history of insulin-dependent type 1 diabetes since age 14 with multiple recent hospital admissions for DKA presents with nausea and vomiting. He was found with glucose of 597, acetone in urine and anion gap of 32. ABG showed 7.2/20/103. WBC 21.1. Cr 1.3. He has missed multiple doses of insulin in the past several days and tells me he took 25 units of long-acting insulin this morning (Basaglar). He continues to have nausea and has vomited 3 times prior to ED arrival. No recent contacts. Denies diarrhea, rash or other infectious complaint at this time. When his mother leaves the room I discussed his positive cocaine urine drug screen and he admits to polysubstance abuse, including LSD. I have counseled him specifically on cocaine and diabetes. Admitted to ICU on insulin GTT. Was given 2L NSS in ED. He is accompanied by his mother. He and she inform me he has had problems ever since his insulin pump has broken. He informs me he takes typically up to 85 units of insulin total per day with 18-20u basal and 20-25 of novolog tid during the day. He has had a few endocrinologists recently leave and feels confused about his insulin regimen. Past Medical History Cardiovascular: HTN GI: No pertinent hx Heme/Onc: No pertinent hx Hepatobiliary: No pertinent hx Psych: Anxiety, Depression Rheumatologic: No pertinent hx Renal/: Acute renal failure Endocrine: Diabetes Past Surgical History Past Surgical History: No pertinent history Family History Family History: Depression, Diabetes Social History Smoke: <1 pack per day ALCOHOL: social Drugs: Cocaine, Marijuana Current Medications Current Medications Current Medications Sodium Chloride 1,000 ml @ 1,000 mls/hr 1X ONCE IV Last administered on 02/18/19at 07:40; Start 02/18/19 at 07:30; Stop 02/18/19 at 08:29; Status DC Ondansetron HCl (Zofran) 4 mg 1X ONCE IVP Last administered on 02/18/19at 07: 44; Start 02/18/19 at 07:30; Stop 02/18/19 at 07:31; Status DC Famotidine (Pepcid Vial) 20 mg 1X ONCE IVP Last administered on 02/18/19at 07:44; Start 02/18/19 at 07:30; Stop 02/18/19 at 07:31; Status DC Ketorolac Tromethamine (Toradol 30mg Vial) 30 mg 1X ONCE IVP Last administered on 02/18/19at 07:58; Start 02/18/19 at 08:00; Stop 02/18/19 at 08:01; Status DC Sodium Chloride 1,000 ml @ 1,000 mls/hr 1X ONCE IV ; Start 02/18/19 at 09:30; Stop 02/18/19 at 10:29 Active Scripts Active Proair Hfa (Albuterol Sulfate) 8.5 Gm Hfa.aer.ad 8.5 Gm IH TID PRN 30 Days Reported Novolog Flexpen (Insulin Aspart) 100 Unit/1 Ml Insuln.pen 15 Units SQ QIDACHS Basaglar Kwikpen U-100 (Insulin Glargine,Hum.rec.anlog) 100 Unit/1 Ml Insuln.pen 40 Units SQ HS Allergies Allergies: Coded Allergies: Penicillins (Verified Allergy, Intermediate, 05/27/15) amoxicillin (Verified Allergy, Intermediate, 05/27/15) cefaclor (Verified Allergy, Intermediate, 05/04/16) ROS General: YES: Chills, Fatigue, Malaise; No: Night Sweats, Appetite, Other PSYCHOLOGICAL ROS: YES: Anxiety; No: Behavioral Disorder, Concentration difficultie, Decreased libido, Depression, Disorientation, Hallucinations, Hostility, Irritablity, Memory difficulties, Mood Swings, Obsessive thoughts, Physical abuse, Sexual abuse, Sleep disturbances, Suicidal ideation, Other Eyes: Yes Blurry vision; No Decreased vision, No Double vision, No Dry eyes, No Excessive tearing, No Eye Pain, No Itchy Eyes, No Loss of vision, No Photophobia, No Scotomata, No Uses contacts, No Uses glasses, No Other HEENT: No: Heacaches, Visual Changes, Hearing change, Nasal congestion, Nasal discharge, Oral lesions, Sinus pain, Sore Throat, Epistaxis, Sneezing, Snoring, Tinnitus, Vertigo, Vocal changes, Other ALLERGY AND IMMUNOLOGY: No: Hives, Insect Bite Sensitivity, Itchy/Watery Eyes, Nasal Congestion, Post Nasal Drip, Seasonal Allergies, Other Hematological and Lymphatic: No: Bleeding Problems, Blood Clots, Blood Transfusions, Brusing, Night Sweats, Pallor, Swollen Lymph Nodes, Other ENDOCRINE: No: Breast Changes, Galactorrhea, Hair Pattern Changes, Hot Flashes, Malaise/lethargy, Mood Swings, Palpitations, Polydipsia/polyuria, Skin Changes, Temperature Intolerance, Unexpected Weight Changes, Other Breast: No New/Changing Breast Lumps, No Nipple changes, No Nipple discharge, No Other Respiratory: No: Cough, Hemoptysis, Orthopnea, Pleuritic Pain, Shortness of breath, SOB with excertion, Sputum Changes, Stridor, Tachypnea, Wheezing, Other Cardiovascular: No Chest Pain, No Palpitations, No Orthopnea, No Paroxysmal Noc. Dyspnea, No Edema, No Lt Headedness, No Other Gastrointestinal: Yes Nausea, Yes Vomiting, Yes Abdominal Pain; No Diarrhea, No Constipation, No Melena, No Hematochezia, No Other Genitourinary: No Dysuria, No Frequency, No Incontinence, No Hematuria, No Retention, No Discharge, No Urgency, No Pain, No Flank Pain, No Other, No , No , No , No , No , No , No Musculoskeletal: No Gait Disturbance, No Joint Pain, No Joint Stiffness, No Joint Swelling, No Muscle Pain, No Muscular Weakness, No Pain In:, No Swelling In:, No Other Neurological: No Behavorial Changes, No Bowel/Bladder ControlChng, No Confusion, No Dizziness, No Gait Disturbance, No Headaches, No Impaired Coord/balance, No Memory Loss, No Numbness/Tingling, No Seizures, No Speech Problems, No Tremors, No Visual Changes, No Weakness, No Other Skin: No Dry Skin, No Eczema, No Hair Changes, No Lumps, No Mole Changes, No Mottling, No Nail Changes, No Pruritus, No Rash, No Skin Lesion Changes, No Other, No Acne Physical Exam General: Alert, Oriented X3, Cooperative, mild distress HEENT: Atraumatic, PERRLA, EOMI, Mucous membr. moist/pink Lungs: Clear to auscultation, Normal air movement Heart: S1S2, RRR, no thrills, no rubs, no gallops, no murmurs Abdomen: Normal bowel sounds, Soft, No hepatosplenomegaly, No masses, Other (mild diffuse tenderness) Rectal Exam: not examined Extremities: No clubbing, No cyanosis, No edema, Normal pulses, No tenderness/swelling Skin: No rashes, No breakdown, No significant lesion Neuro: Normal gait, Normal speech, Strength at 5/5 X4 ext, Normal tone, Sensation intact, Cranial nerves 3-12 NL, Reflexes 2+ Psych/Mental Status: Mental status NL, Mood NL Vitals Vitals Vital Signs Date Time Temp Pulse Resp B/P (MAP) Pulse Ox O2 Delivery O2 Flow Rate FiO2 02/18/19 08:15 Room Air 02/18/19 07:22 98.2 108 30 169/89 (115) 100 98.2 Labs Labs Laboratory Tests Test 02/18/19 07:16 02/18/19 07:24 02/18/19 08:00 02/18/19 09:17 Glucose (Fingerstick) 565 mg/dL (70-99) 488 mg/dL (70-99) White Blood Count 21.1 x10^3/uL (4.0-11.0) Red Blood Count 4.74 x10^6/uL (4.30-5.70) Hemoglobin 15.7 g/dL (13.0-17.5) Hematocrit 47.0 % (39.0-53.0) Mean Corpuscular Volume 99 fL (79-100) Mean Corpuscular Hemoglobin 33 pg (25-35) Mean Corpuscular Hemoglobin Concent 33 g/dL (31-37) Red Cell Distribution Width 14.0 % (11.5-14.5) Platelet Count 353 x10^3/uL (140-400) Neutrophils (%) (Auto) 85 % (31-73) Lymphocytes (%) (Auto) 8 % (24-48) Monocytes (%) (Auto) 7 % (0-9) Eosinophils (%) (Auto) 0 % (0-3) Basophils (%) (Auto) 0 % (0-3) Neutrophils # (Auto) 17.9 x10^3/uL (1.8-7.7) Lymphocytes # (Auto) 1.7 x10^3/uL (1.0-4.8) Monocytes # (Auto) 1.4 x10^3/uL (0.0-1.1) Eosinophils # (Auto) 0.0 x10^3/uL (0.0-0.7) Basophils # (Auto) 0.1 x10^3/uL (0.0-0.2) Sodium Level 132 mmol/L (136-145) Potassium Level 4.6 mmol/L (3.5-5.1) Chloride Level 88 mmol/L (98-107) Carbon Dioxide Level 12 mmol/L (21-32) Anion Gap 32 (6-14) Blood Urea Nitrogen 15 mg/dL (8-26) Creatinine 1.3 mg/dL (0.7-1.3) Estimated GFR (Cockcroft-Gault) 69.7 BUN/Creatinine Ratio 12 (6-20) Glucose Level 597 mg/dL (70-99) Calcium Level 9.9 mg/dL (8.5-10.1) Magnesium Level 2.0 mg/dL (1.8-2.4) Total Bilirubin 0.8 mg/dL (0.2-1.0) Aspartate Amino Transf (AST/SGOT) 14 U/L (15-37) Alanine Aminotransferase (ALT/SGPT) 18 U/L (16-63) Alkaline Phosphatase 114 U/L (46-116) Total Protein 8.8 g/dL (6.4-8.2) Albumin 5.0 g/dL (3.4-5.0) Albumin/Globulin Ratio 1.3 (1.0-1.7) Lipase 59 U/L (73-393) Ethyl Alcohol Level < 10 mg/dL (0-10) Acetone Level Sm pos (NEG) O2 Saturation 96 % (92-99) Arterial Blood pH 7.20 (7.35-7.45) Arterial Blood pCO2 at Patient Temp 20 mmHg (35-46) Arterial Blood pO2 at Patient Temp 103 mmHg (85-108) Arterial Blood HCO3 8 mmol/L (21-28) Arterial Blood Base Excess -18 mmol/L (-3-3) FiO2 21 Laboratory Tests Test 02/18/19 07:16 02/18/19 07:24 02/18/19 08:00 02/18/19 09:17 Glucose (Fingerstick) 565 mg/dL (70-99) 488 mg/dL (70-99) White Blood Count 21.1 x10^3/uL (4.0-11.0) Red Blood Count 4.74 x10^6/uL (4.30-5.70) Hemoglobin 15.7 g/dL (13.0-17.5) Hematocrit 47.0 % (39.0-53.0) Mean Corpuscular Volume 99 fL (79-100) Mean Corpuscular Hemoglobin 33 pg (25-35) Mean Corpuscular Hemoglobin Concent 33 g/dL (31-37) Red Cell Distribution Width 14.0 % (11.5-14.5) Platelet Count 353 x10^3/uL (140-400) Neutrophils (%) (Auto) 85 % (31-73) Lymphocytes (%) (Auto) 8 % (24-48) Monocytes (%) (Auto) 7 % (0-9) Eosinophils (%) (Auto) 0 % (0-3) Basophils (%) (Auto) 0 % (0-3) Neutrophils # (Auto) 17.9 x10^3/uL (1.8-7.7) Lymphocytes # (Auto) 1.7 x10^3/uL (1.0-4.8) Monocytes # (Auto) 1.4 x10^3/uL (0.0-1.1) Eosinophils # (Auto) 0.0 x10^3/uL (0.0-0.7) Basophils # (Auto) 0.1 x10^3/uL (0.0-0.2) Sodium Level 132 mmol/L (136-145) Potassium Level 4.6 mmol/L (3.5-5.1) Chloride Level 88 mmol/L (98-107) Carbon Dioxide Level 12 mmol/L (21-32) Anion Gap 32 (6-14) Blood Urea Nitrogen 15 mg/dL (8-26) Creatinine 1.3 mg/dL (0.7-1.3) Estimated GFR (Cockcroft-Gault) 69.7 BUN/Creatinine Ratio 12 (6-20) Glucose Level 597 mg/dL (70-99) Calcium Level 9.9 mg/dL (8.5-10.1) Magnesium Level 2.0 mg/dL (1.8-2.4) Total Bilirubin 0.8 mg/dL (0.2-1.0) Aspartate Amino Transf (AST/SGOT) 14 U/L (15-37) Alanine Aminotransferase (ALT/SGPT) 18 U/L (16-63) Alkaline Phosphatase 114 U/L (46-116) Total Protein 8.8 g/dL (6.4-8.2) Albumin 5.0 g/dL (3.4-5.0) Albumin/Globulin Ratio 1.3 (1.0-1.7) Lipase 59 U/L (73-393) Ethyl Alcohol Level < 10 mg/dL (0-10) Acetone Level Sm pos (NEG) O2 Saturation 96 % (92-99) Arterial Blood pH 7.20 (7.35-7.45) Arterial Blood pCO2 at Patient Temp 20 mmHg (35-46) Arterial Blood pO2 at Patient Temp 103 mmHg (85-108) Arterial Blood HCO3 8 mmol/L (21-28) Arterial Blood Base Excess -18 mmol/L (-3-3) FiO2 21 VTE Prophylaxis Ordered VTE Prophylaxis Devices: No VTE Pharmacological Prophylaxi: Yes Assessment/Plan Assessment/Plan A/P: DKA - N/V. Likely combination of compliance issues and cocaine use. Will check BMP, mag, phos q4 hours. Insulin GTT. When his gap closes can eat, take his insulin. I feel an adjustment is necessary to shift his glargine to 32-45 units (start at 32 and adjust throughout the next few weeks) and reduce his lispro to 16-18 units TID with a low sliding scale for the next month until his pump is fixed KENDRA - likely vasomotor nephropathy from DKA, hydrate Leukocytosis - no clear infectious source, he definitely meets SIRS. likely 2/2 DKA. Trend Lower back pain - lidoderm patch Polysubstance abuse - counseled specifically on cocaine given it may be eliciting his DKA episode frequency FEN - NPO until gap closes PPX - Ambulatory FULL CODE Dispo - ICU for DKA 43 minutes CC time RICKEY BROWN MD Feb 18, 2019 09:25
[2019-02-18] MEDS ORDERED: INSULIN,REGULAR 150 UNIT DRIP 150 ML IV ONE (09:30)
[2019-02-18 09:47] LABS: BARBITURATES NEG (NEG); BENZODIAZEPINES NEG (NEG); CANNABINOIDS NEG (NEG); COCAINE POS (NEG); METHADONE NEG (NEG); OPIATES NEG (NEG); PHENCYCLIDINE NEG (NEG)
[2019-02-18 09:48] LABS: AMPHETAMINE/METHAMPHETAMINE NEG (NEG)
[2019-02-18] MEDS ORDERED: IV NORMAL SALINE 1000ML BAG 1,000 ML IV SCH (10:30)
[2019-02-18] MEDS ORDERED: POTASSIUM CHLORIDE 10MEQ 100 ML IV PRN ×3 (10:30)
[2019-02-18] MEDS ORDERED: INSULIN REGULAR VIAL 150 UNIT in 0.9 % SODIUM CHLORIDE 150ML 150 ML IV PRN (10:30)
[2019-02-18] MEDS ORDERED: IV DEXTROSE 5 %-0.45 % NACL 1,000 ML IV SCH (10:33)
[2019-02-18] MEDS: IV 1/2 NORMAL SALINE 1,000 ML IV SCH ×3 (10:33→18:33)
[2019-02-18] MEDS: IV NORMAL SALINE 1000ML BAG 1,000 ML IV SCH ×3 (10:33→18:33)
[2019-02-18 10:52] LABS: % BANDS 6 % (0-9); % LYMPHS 4 % (24-48); % MONOS 2 % (0-10); % SEGS 88 % (35-66); PLT ESTIMATE ADEQUATE (ADEQUATE)
[2019-02-18] MEDS: POTASSIUM CHLORIDE 10MEQ 100 ML IV SCH ×2 (11:00→12:00)
--- NOTE | 2019-02-18 11:48 | PHYS DOC ---
Past Medical History Past Medical History: Diabetes-Type I Past Surgical History: Other Additional Past Surgical Histo: right foot Alcohol Use: Occasionally Drug Use: Cocaine, Marijuana Adult General Chief Complaint Chief Complaint: HYPERGLYCEMIA HPI HPI Patient is a 23 year old with history of insulin-dependent diabetes and recent hospital admission for DKA presents with elevated blood sugar with nausea and vomiting. Patient states he is missed multiple doses of insulin in the past several days. He last took 25 units of long-acting insulin this morning. He continues to have nausea and has vomited 3 times prior to ED arrival. Reports sweats. Denies fever, chills, cough, sore throat, chest pain. Reports abdominal pain in the left upper quadrant worse after vomiting. Denies diarrhea, rash or other infectious complaint at this time. [] Review of Systems Review of Systems ROS as per HPI. All other systems were reviewed and found to be within normal limits, except as documented in this note. Current Medications Current Medications Current Medications Medications (Trade) Dose Ordered Sig/Nam Start Time Stop Time Status Last Admin Dose Admin Famotidine (Pepcid Vial) 20 mg 1X ONCE 02/18/19 07:30 02/18/19 07:31 DC 02/18/19 07:44 20 MG Ketorolac Tromethamine (Toradol 30mg Vial) 30 mg 1X ONCE 02/18/19 08:00 02/18/19 08:01 DC 02/18/19 07:58 30 MG Ondansetron HCl (Zofran) 4 mg 1X ONCE 02/18/19 07:30 02/18/19 07:31 DC 02/18/19 07:44 4 MG Sodium Chloride 1,000 ml @ 1,000 mls/hr 1X ONCE 02/18/19 07:30 02/18/19 08:29 DC 02/18/19 07:40 1,000 MLS/HR Allergies Allergies Allergies Coded Allergies Type Severity Reaction Last Updated Verified Penicillins Allergy Intermediate 05/27/15 Yes amoxicillin Allergy Intermediate 05/27/15 Yes cefaclor Allergy Intermediate 05/04/16 Yes Physical Exam Physical Exam Constitutional: Well developed, cachectic. [] HENT: Normocephalic, atraumatic, bilateral external ears normal, oropharynx, dry, no oral exudates, nose normal. [] Eyes: PERRLA, EOMI, conjunctiva normal, no discharge. [] Neck: Normal range of motion, no tenderness, supple, no stridor. [] Cardiovascular:Heart rate regular rhythm, no murmur [] Lungs & Thorax: Respirations, rapid deep breathing,. [] Abdomen: Bowel sounds normal, soft, no tenderness. [] Skin: Warm, dry, no erythema, no rash. [] Back: No tenderness. [] Extremities: No tenderness, no edema. [] Neurologic: Alert and oriented X 3, normal motor function, normal sensory function, no focal deficits noted. [] Psychologic: Affect normal, judgement normal, mood normal. [] Current Patient Data Vital Signs Vital Signs Date Time Temp Pulse Resp B/P (MAP) Pulse Ox O2 Delivery O2 Flow Rate FiO2 02/18/19 09:00 120 28 134/61 (85) 98 Room Air 02/18/19 07:22 98.2 98.2 Lab Values Laboratory Tests Test 02/18/19 07:16 02/18/19 07:24 02/18/19 08:00 02/18/19 08:55 Glucose (Fingerstick) 565 mg/dL (70-99) *H White Blood Count 21.1 x10^3/uL (4.0-11.0) H Red Blood Count 4.74 x10^6/uL (4.30-5.70) Hemoglobin 15.7 g/dL (13.0-17.5) Hematocrit 47.0 % (39.0-53.0) Mean Corpuscular Volume 99 fL (79-100) Mean Corpuscular Hemoglobin 33 pg (25-35) Mean Corpuscular Hemoglobin Concent 33 g/dL (31-37) Red Cell Distribution Width 14.0 % (11.5-14.5) Platelet Count 353 x10^3/uL (140-400) Neutrophils (%) (Auto) 85 % (31-73) H Lymphocytes (%) (Auto) 8 % (24-48) L Monocytes (%) (Auto) 7 % (0-9) Eosinophils (%) (Auto) 0 % (0-3) Basophils (%) (Auto) 0 % (0-3) Neutrophils # (Auto) 17.9 x10^3/uL (1.8-7.7) H Lymphocytes # (Auto) 1.7 x10^3/uL (1.0-4.8) Monocytes # (Auto) 1.4 x10^3/uL (0.0-1.1) H Eosinophils # (Auto) 0.0 x10^3/uL (0.0-0.7) Basophils # (Auto) 0.1 x10^3/uL (0.0-0.2) Segmented Neutrophils % 88 % (35-66) H Band Neutrophils % 6 % (0-9) Lymphocytes % 4 % (24-48) L Monocytes % 2 % (0-10) Platelet Estimate Adequate (ADEQUATE) Sodium Level 132 mmol/L (136-145) L Potassium Level 4.6 mmol/L (3.5-5.1) Chloride Level 88 mmol/L (98-107) L Carbon Dioxide Level 12 mmol/L (21-32) L Anion Gap 32 (6-14) H Blood Urea Nitrogen 15 mg/dL (8-26) Creatinine 1.3 mg/dL (0.7-1.3) Estimated GFR (Cockcroft-Gault) 69.7 BUN/Creatinine Ratio 12 (6-20) Glucose Level 597 mg/dL (70-99) *H Calcium Level 9.9 mg/dL (8.5-10.1) Magnesium Level 2.0 mg/dL (1.8-2.4) Total Bilirubin 0.8 mg/dL (0.2-1.0) Aspartate Amino Transferase (AST) 14 U/L (15-37) L Alanine Aminotransferase (ALT) 18 U/L (16-63) Alkaline Phosphatase 114 U/L (46-116) Total Protein 8.8 g/dL (6.4-8.2) H Albumin 5.0 g/dL (3.4-5.0) Albumin/Globulin Ratio 1.3 (1.0-1.7) Lipase 59 U/L (73-393) L Ethyl Alcohol Level < 10 mg/dL (0-10) Acetone Level Sm pos (NEG) O2 Saturation 96 % (92-99) Arterial Blood pH 7.20 (7.35-7.45) *L Arterial Blood pCO2 at Patient Temp 20 mmHg (35-46) *L Arterial Blood pO2 at Patient Temp 103 mmHg (85-108) Arterial Blood HCO3 8 mmol/L (21-28) L Arterial Blood Base Excess -18 mmol/L (-3-3) L FiO2 21 Urine Opiates Screen Neg (NEG) Urine Methadone Screen Neg (NEG) Urine Barbiturates Neg (NEG) Urine Phencyclidine Screen Neg (NEG) Urine Amphetamine/Methamphetamine Neg (NEG) Urine Benzodiazepines Screen Neg (NEG) Urine Cocaine Screen Pos (NEG) Urine Cannabinoids Screen Neg (NEG) Urine Ethyl Alcohol Neg (NEG) Laboratory Tests 02/18/19 07:24 Laboratory Tests 02/18/19 07:24 EKG EKG [] Radiology/Procedures Radiology/Procedures [Chest x-ray: reviewed, no acute pulmonary disease.] Course & Med Decision Making Course & Med Decision Making Pertinent Labs and Imaging studies reviewed. (See chart for details) [IV fluids given. Patient started on insulin drip. Will admit to the ICU for treatment of DKA. Of note, the patient's urine drug screen is positive for cocaine likely contributing to current state.] Dragon Disclaimer Dragon Disclaimer This electronic medical record was generated, in whole or in part, using a voice recognition dictation system. Departure Departure Impression: Primary Impression: DKA (diabetic ketoacidoses) Additional Impression: Cocaine abuse Disposition: ADMITTED INPATIENT Condition: CRITICAL Problem Qualifiers JACK ESRTELLA DO Feb 18, 2019 11:48
[2019-02-18] MEDS ORDERED: tiZANidine 4 MG TABLET. PO PRN (12:00)
[2019-02-18] MEDS: LIDOCAINE (700MG/PATCH) PATCH. TD SCH (12:00)
[2019-02-18 13:23] LABS: ALBUMIN 3.7 g/dL (3.4-5.0); CALCIUM 8.4 mg/dL (8.5-10.1); GFR 94.3; PHOSPHORUS 2.5 mg/dL (2.6-4.7); POTASSIUM 4.4 mmol/L (3.5-5.1)
[2019-02-18] MEDS: IV DEXTROSE 5% - 0.9 % NACL 1,000 ML IV SCH ×2 (14:30→18:30)
[2019-02-18] MEDS ORDERED: POTASSIUM CHLORIDE 20 MEQ TABLET.ER. PO ONE ×2 (16:15→16:30)
[2019-02-18 17:33] LABS: ALBUMIN 3.5 g/dL (3.4-5.0); CALCIUM 8.4 mg/dL (8.5-10.1); CREATININE 0.9 mg/dL (0.7-1.3); GFR 106.5; MAGNESIUM 1.8 mg/dL (1.8-2.4); PHOSPHORUS 1.7 mg/dL (2.6-4.7); POTASSIUM 3.8 mmol/L (3.5-5.1)
[2019-02-18] MEDS ORDERED: SODIUM PHOSPHATE 20 MMOL in IV DEXTROSE 5% 250 ML IV PRN ×2 (17:45→18:15)
[2019-02-18] MEDS ORDERED: DEXTROSE 50% 25 GM / 50ML DISP.SYRIN. IV PRN (17:45)
[2019-02-18] MEDS ORDERED: SODIUM PHOSPHATE 40 MMOL in IV NORMAL SALINE 500ML BAG 500 ML IV PRN (17:45)
[2019-02-18] MEDS ORDERED: SODIUM PHOSPHATE 10 MMOL in IV DEXTROSE 5% 250 ML IV PRN (17:45)
[2019-02-18] MEDS ORDERED: SODIUM PHOSPHATE 20 MMOL in IV DEXTROSE 5% 250 ML IV ONE (18:15)
[2019-02-18] MEDS ORDERED: INSULIN LISPRO 300 UNITS/3 ML VIAL. SQ ONE (18:45)
[2019-02-18] MEDS ORDERED: PATCH REMOVAL. MC SCH (21:00)
[2019-02-18] MEDS ORDERED: INSULIN GLARGINE SYRINGE. SQ SCH (21:00)
[2019-02-19 00:08] VITALS: BP 121/87
[2019-02-19 03:03] VITALS: BP 112/67
[2019-02-19 05:01] LABS: BASO # 0.1 x10^3/uL (0.0-0.2); BASO % 1 % (0-3); EOS % 0 % (0-3); HEMATOCRIT 39.3 % (39.0-53.0); HEMOGLOBIN 13.3 g/dL (13.0-17.5); LYMPH # 2.6 x10^3/uL (1.0-4.8); LYMPH % 21 % (24-48); MEAN CORPUSCULAR HEMOGLOBIN 32 pg (25-35); MEAN CORPUSCULAR HGB CONC 34 g/dL (31-37); MEAN CORPUSCULAR VOLUME 96 fL (79-100); MONO % 8 % (0-9); NEUT # 8.5 x10^3/uL (1.8-7.7); NEUT % 70 % (31-73); PLATELET COUNT 266 x10^3/uL (140-400); RED BLOOD COUNT 4.09 x10^6/uL (4.30-5.70); WHITE BLOOD COUNT 12.2 x10^3/uL (4.0-11.0)
[2019-02-19 05:23] LABS: ALBUMIN 3.3 g/dL (3.4-5.0); CALCIUM 8.5 mg/dL (8.5-10.1); CREATININE 0.8 mg/dL (0.7-1.3); PHOSPHORUS 3.5 mg/dL (2.6-4.7); POTASSIUM 3.8 mmol/L (3.5-5.1)
[2019-02-19 07:00] VITALS: BP 117/76
[2019-02-19] MEDS: INSULIN LISPRO 300 UNITS/3 ML VIAL. SQ SCH ×4 (08:00→12:00)
[2019-02-19] MEDS: LIDOCAINE (700MG/PATCH) PATCH. TD SCH (09:18)
[2019-02-19] MEDS ORDERED: INSU100I17 SQ (15:21)
[2019-02-19] MEDS ORDERED: INSU100I32 SQ (15:21)
--- NOTE | 2019-02-19 15:25 | PDOC3 ---
Discharge Summary Visit Information Date of Admission: Feb 18, 2019 Date of Discharge: Feb 19, 2019 Admitting Diagnosis: DKA Final Diagnosis Problems Medical Problems: (1) Cocaine abuse Status: Acute (2) DKA (diabetic ketoacidoses) Status: Acute Brief Hospital Course Allergies Allergies Coded Allergies Type Severity Reaction Last Updated Verified Penicillins Allergy Intermediate 05/27/15 Yes amoxicillin Allergy Intermediate 05/27/15 Yes cefaclor Allergy Intermediate 05/04/16 Yes Vital Signs Vital Signs Date Time Temp Pulse Resp B/P (MAP) Pulse Ox O2 Delivery O2 Flow Rate FiO2 02/19/19 08:00 Room Air 02/19/19 07:00 98.3 88 16 117/76 (90) 100 98.3 Lab Results Laboratory Tests Test 02/18/19 07:16 02/18/19 07:24 02/18/19 08:00 02/18/19 08:55 Glucose (Fingerstick) 565 mg/dL (70-99) White Blood Count 21.1 x10^3/uL (4.0-11.0) Red Blood Count 4.74 x10^6/uL (4.30-5.70) Hemoglobin 15.7 g/dL (13.0-17.5) Hematocrit 47.0 % (39.0-53.0) Mean Corpuscular Volume 99 fL (79-100) Mean Corpuscular Hemoglobin 33 pg (25-35) Mean Corpuscular Hemoglobin Concent 33 g/dL (31-37) Red Cell Distribution Width 14.0 % (11.5-14.5) Platelet Count 353 x10^3/uL (140-400) Neutrophils (%) (Auto) 85 % (31-73) Lymphocytes (%) (Auto) 8 % (24-48) Monocytes (%) (Auto) 7 % (0-9) Eosinophils (%) (Auto) 0 % (0-3) Basophils (%) (Auto) 0 % (0-3) Neutrophils # (Auto) 17.9 x10^3/uL (1.8-7.7) Lymphocytes # (Auto) 1.7 x10^3/uL (1.0-4.8) Monocytes # (Auto) 1.4 x10^3/uL (0.0-1.1) Eosinophils # (Auto) 0.0 x10^3/uL (0.0-0.7) Basophils # (Auto) 0.1 x10^3/uL (0.0-0.2) Segmented Neutrophils % 88 % (35-66) Band Neutrophils % 6 % (0-9) Lymphocytes % 4 % (24-48) Monocytes % 2 % (0-10) Platelet Estimate Adequate (ADEQUATE) Sodium Level 132 mmol/L (136-145) Potassium Level 4.6 mmol/L (3.5-5.1) Chloride Level 88 mmol/L (98-107) Carbon Dioxide Level 12 mmol/L (21-32) Anion Gap 32 (6-14) Blood Urea Nitrogen 15 mg/dL (8-26) Creatinine 1.3 mg/dL (0.7-1.3) Estimated GFR (Cockcroft-Gault) 69.7 BUN/Creatinine Ratio 12 (6-20) Glucose Level 597 mg/dL (70-99) Calcium Level 9.9 mg/dL (8.5-10.1) Phosphorus Level 6.8 mg/dL (2.6-4.7) Magnesium Level 2.0 mg/dL (1.8-2.4) Total Bilirubin 0.8 mg/dL (0.2-1.0) Aspartate Amino Transf (AST/SGOT) 14 U/L (15-37) Alanine Aminotransferase (ALT/SGPT) 18 U/L (16-63) Alkaline Phosphatase 114 U/L (46-116) Total Protein 8.8 g/dL (6.4-8.2) Albumin 5.0 g/dL (3.4-5.0) Albumin/Globulin Ratio 1.3 (1.0-1.7) Lipase 59 U/L (73-393) Ethyl Alcohol Level < 10 mg/dL (0-10) Acetone Level Sm pos (NEG) O2 Saturation 96 % (92-99) Arterial Blood pH 7.20 (7.35-7.45) Arterial Blood pCO2 at Patient Temp 20 mmHg (35-46) Arterial Blood pO2 at Patient Temp 103 mmHg (85-108) Arterial Blood HCO3 8 mmol/L (21-28) Arterial Blood Base Excess -18 mmol/L (-3-3) FiO2 21 Urine Opiates Screen Neg (NEG) Urine Methadone Screen Neg (NEG) Urine Barbiturates Neg (NEG) Urine Phencyclidine Screen Neg (NEG) Urine Amphetamine/Methamphetamine Neg (NEG) Urine Benzodiazepines Screen Neg (NEG) Urine Cocaine Screen Pos (NEG) Urine Cannabinoids Screen Neg (NEG) Urine Ethyl Alcohol Neg (NEG) Test 02/18/19 09:17 02/18/19 12:45 02/18/19 17:10 02/18/19 20:20 Glucose (Fingerstick) 488 mg/dL (70-99) 152 mg/dL (70-99) Sodium Level 133 mmol/L (136-145) 136 mmol/L (136-145) Potassium Level 4.4 mmol/L (3.5-5.1) 3.8 mmol/L (3.5-5.1) Chloride Level 99 mmol/L (98-107) 104 mmol/L (98-107) Carbon Dioxide Level 13 mmol/L (21-32) 22 mmol/L (21-32) Anion Gap 21 (6-14) 10 (6-14) Blood Urea Nitrogen 12 mg/dL (8-26) 10 mg/dL (8-26) Creatinine 1.0 mg/dL (0.7-1.3) 0.9 mg/dL (0.7-1.3) Estimated GFR (Cockcroft-Gault) 94.3 106.5 Glucose Level 197 mg/dL (70-99) 150 mg/dL (70-99) Calcium Level 8.4 mg/dL (8.5-10.1) 8.4 mg/dL (8.5-10.1) Phosphorus Level 2.5 mg/dL (2.6-4.7) 1.7 mg/dL (2.6-4.7) Albumin 3.7 g/dL (3.4-5.0) 3.5 g/dL (3.4-5.0) Magnesium Level 1.8 mg/dL (1.8-2.4) Test 02/18/19 21:34 02/19/19 03:00 02/19/19 04:30 02/19/19 07:13 Glucose (Fingerstick) 125 mg/dL (70-99) 123 mg/dL (70-99) 216 mg/dL (70-99) White Blood Count 12.2 x10^3/uL (4.0-11.0) Red Blood Count 4.09 x10^6/uL (4.30-5.70) Hemoglobin 13.3 g/dL (13.0-17.5) Hematocrit 39.3 % (39.0-53.0) Mean Corpuscular Volume 96 fL (79-100) Mean Corpuscular Hemoglobin 32 pg (25-35) Mean Corpuscular Hemoglobin Concent 34 g/dL (31-37) Red Cell Distribution Width 14.0 % (11.5-14.5) Platelet Count 266 x10^3/uL (140-400) Neutrophils (%) (Auto) 70 % (31-73) Lymphocytes (%) (Auto) 21 % (24-48) Monocytes (%) (Auto) 8 % (0-9) Eosinophils (%) (Auto) 0 % (0-3) Basophils (%) (Auto) 1 % (0-3) Neutrophils # (Auto) 8.5 x10^3/uL (1.8-7.7) Lymphocytes # (Auto) 2.6 x10^3/uL (1.0-4.8) Monocytes # (Auto) 1.0 x10^3/uL (0.0-1.1) Eosinophils # (Auto) 0.0 x10^3/uL (0.0-0.7) Basophils # (Auto) 0.1 x10^3/uL (0.0-0.2) Sodium Level 138 mmol/L (136-145) Potassium Level 3.8 mmol/L (3.5-5.1) Chloride Level 104 mmol/L (98-107) Carbon Dioxide Level 21 mmol/L (21-32) Anion Gap 13 (6-14) Blood Urea Nitrogen 11 mg/dL (8-26) Creatinine 0.8 mg/dL (0.7-1.3) Estimated GFR (Cockcroft-Gault) 122.0 Glucose Level 140 mg/dL (70-99) Calcium Level 8.5 mg/dL (8.5-10.1) Phosphorus Level 3.5 mg/dL (2.6-4.7) Albumin 3.3 g/dL (3.4-5.0) Test 02/19/19 11:12 Glucose (Fingerstick) 233 mg/dL (70-99) Laboratory Tests Test 02/18/19 17:10 11/30/19 20:20 02/18/19 21:34 02/19/19 03:00 Sodium Level 136 mmol/L (136-145) Potassium Level 3.8 mmol/L (3.5-5.1) Chloride Level 104 mmol/L (98-107) Carbon Dioxide Level 22 mmol/L (21-32) Anion Gap 10 (6-14) Blood Urea Nitrogen 10 mg/dL (8-26) Creatinine 0.9 mg/dL (0.7-1.3) Estimated GFR (Cockcroft-Gault) 106.5 Glucose Level 150 mg/dL (70-99) Calcium Level 8.4 mg/dL (8.5-10.1) Phosphorus Level 1.7 mg/dL (2.6-4.7) Magnesium Level 1.8 mg/dL (1.8-2.4) Albumin 3.5 g/dL (3.4-5.0) Glucose (Fingerstick) 152 mg/dL (70-99) 125 mg/dL (70-99) 123 mg/dL (70-99) Test 02/19/19 04:30 02/19/19 07:13 02/19/19 11:12 White Blood Count 12.2 x10^3/uL (4.0-11.0) Red Blood Count 4.09 x10^6/uL (4.30-5.70) Hemoglobin 13.3 g/dL (13.0-17.5) Hematocrit 39.3 % (39.0-53.0) Mean Corpuscular Volume 96 fL (79-100) Mean Corpuscular Hemoglobin 32 pg (25-35) Mean Corpuscular Hemoglobin Concent 34 g/dL (31-37) Red Cell Distribution Width 14.0 % (11.5-14.5) Platelet Count 266 x10^3/uL (140-400) Neutrophils (%) (Auto) 70 % (31-73) Lymphocytes (%) (Auto) 21 % (24-48) Monocytes (%) (Auto) 8 % (0-9) Eosinophils (%) (Auto) 0 % (0-3) Basophils (%) (Auto) 1 % (0-3) Neutrophils # (Auto) 8.5 x10^3/uL (1.8-7.7) Lymphocytes # (Auto) 2.6 x10^3/uL (1.0-4.8) Monocytes # (Auto) 1.0 x10^3/uL (0.0-1.1) Eosinophils # (Auto) 0.0 x10^3/uL (0.0-0.7) Basophils # (Auto) 0.1 x10^3/uL (0.0-0.2) Sodium Level 138 mmol/L (136-145) Potassium Level 3.8 mmol/L (3.5-5.1) Chloride Level 104 mmol/L (98-107) Carbon Dioxide Level 21 mmol/L (21-32) Anion Gap 13 (6-14) Blood Urea Nitrogen 11 mg/dL (8-26) Creatinine 0.8 mg/dL (0.7-1.3) Estimated GFR (Cockcroft-Gault) 122.0 Glucose Level 140 mg/dL (70-99) Calcium Level 8.5 mg/dL (8.5-10.1) Phosphorus Level 3.5 mg/dL (2.6-4.7) Albumin 3.3 g/dL (3.4-5.0) Glucose (Fingerstick) 216 mg/dL (70-99) 233 mg/dL (70-99) Brief Hospital Course Mr Kelly has been a type 1 diabetic since age 14. He was found with glucose of 597, acetone in urine and anion gap of 32. ABG showed 7.2/20/103. WBC 21.1. Cr 1.3. He has missed multiple doses of insulin in the past several days and tells me he took 25 units of long-acting insulin this morning (Basaglar). He continues to have nausea and has vomited 3 times prior to ED arrival. No recent contacts. Denies diarrhea, rash or other infectious complaint at this time. When his mother leaves the room I discussed his positive cocaine urine drug screen and he admits to polysubstance abuse, including LSD. I have cou nseled him specifically on cocaine and diabetes. Admitted to ICU on insulin GTT. Was given 2L NSS in ED. He is accompanied by his mother. He and she inform me he has had problems ever since his insulin pump has broken. He informs me he takes typically up to 85 units of insulin total per day with 18-20u basal and 20-25 of novolog tid during the day. He has had a few endocrinologists recently leave and feels confused about his insulin regimen. General: Alert, Oriented X3, Cooperative, mild distress HEENT: Atraumatic, PERRLA, EOMI, Mucous membr. moist/pink Lungs: Clear to auscultation, Normal air movement Heart: S1S2, RRR, no thrills, no rubs, no gallops, no murmurs Abdomen: Normal bowel sounds, Soft, No hepatosplenomegaly, No masses, Other (mild diffuse tenderness) Rectal Exam: not examined Extremities: No clubbing, No cyanosis, No edema, Normal pulses, No tenderness/swelling Skin: No rashes, No breakdown, No significant lesion Neuro: Normal gait, Normal speech, Strength at 5/5 X4 ext, Normal tone, Sensation intact, Cranial nerves 3-12 NL, Reflexes 2+ Psych/Mental Status: Mental status NL, Mood NL A/P: DKA - N/V. Likely combination of compliance issues and cocaine use. He improved after 24 hours. I feel an adjustment is necessary to shift his glargine to 32-45 units (start at 32 and adjust throughout the next few weeks) and reduce his lispro to 16-18 units TID with a low sliding scale for the next month until his pump is fixed KENDRA - likely vasomotor nephropathy from DKA, hydrated Leukocytosis - no clear infectious source, he definitely meets SIRS. likely 2/2 DKA. Trended to normal Lower back pain - lidoderm patch Polysubstance abuse - counseled specifically on cocaine given it may be eliciting his DKA episode frequency Greater than 30 minutes spent on d/c Discharge Information Condition at Discharge: Improved Follow Up: Weeks (1) Disposition/Orders: D/C to Home Scheduled Insulin Aspart (Novolog Flexpen) 100 Unit/1 Ml Insuln.pen, 18 UNITS SQ QIDACHS for dm1 for 30 Days, #5 Prescribed by: RICKEY BROWN MD on 02/19/19 1521 Insulin Glargine,Hum.rec.anlog (Basaglar Kwikpen U-100) 100 Unit/1 Ml Insuln.pen, 32 UNITS SQ HS for DM1 for 30 Days, #3 Prescribed by: RICKEY BROWN MD on 02/19/19 1521 Scheduled PRN Albuterol Sulfate (Proair Hfa) 8.5 Gm Hfa.aer.ad, 8.5 GM IH TID PRN for COUGH for 30 Days, #1 Prescribed by: KAYLEY COLLINS on 11/28/17 1038 RICKEY BROWN MD Feb 19, 2019 15:25
--- NOTE | 2019-02-19 15:47 | NUR ---
Discharge instructions completed. IV site discontinued without difficulty. Pt states he has all of his personal belongings and understands his discharge teaching and medications. Pt discharged to home escorted out ambulatory by staff. His mother present.
== END 2019-02-19 15:50 | disposition home or self-care (01) | DRG 917 ==
LOC: ER 07:08 → 1 WEST ICU 09:00 → 4 NORTH 19:27
PROVIDERS: ADMIT Internal Medicine; ATTEND Internal Medicine
DX: T40.5X1A Poisoning by cocaine, accidental (unintentional), initial encounter (principal); E10.10 Type 1 diabetes mellitus with ketoacidosis without coma; N17.0 Acute kidney failure with tubular necrosis; R65.10 Systemic inflammatory response syndrome (SIRS) of non-infectious origin without acute organ dysfunction; F19.10 Other psychoactive substance abuse, uncomplicated; I10 Essential (primary) hypertension; F32.9 Major depressive disorder, single episode, unspecified; F41.9 Anxiety disorder, unspecified; D72.829 Elevated white blood cell count, unspecified; F17.210 Nicotine dependence, cigarettes, uncomplicated; F14.10 Cocaine abuse, uncomplicated; Z71.51 Drug abuse counseling and surveillance of drug abuser; Z91.19 Patient's noncompliance with other medical treatment and regimen; Z88.0 Allergy status to penicillin; Z88.8 Allergy status to other drugs, medicaments and biological substances; Z81.8 Family history of other mental and behavioral disorders; Z83.3 Family history of diabetes mellitus
CPT/HCPCS: 36415; 36600; 71045; 80053; 80069; 80307; 82010; 82805; 82962; 83690; 83735; 84100; 85007; 85025; 96361; 96374; 96375; G0480; J1815; J1885; J2405; J3490; J7030; J7042; 99285-25; G0378

== ENCOUNTER 2019-11-05 15:34 | Inpatient (IN) | payer OTHER ==
[~2019-11-05] VITALS: Ht 177.8 cm; Wt 62.0 kg
[2019-11-05 15:59] LABS: BASO # 0.1 x10^3/uL (0.0-0.2); BASO % 1 % (0-3); EOS % 0 % (0-3); HEMATOCRIT 46.5 % (39.0-53.0); HEMOGLOBIN 15.3 g/dL (13.0-17.5); LYMPH # 3.6 x10^3/uL (1.0-4.8); LYMPH % 29 % (24-48); MEAN CORPUSCULAR HEMOGLOBIN 34 pg (25-35); MEAN CORPUSCULAR HGB CONC 33 g/dL (31-37); MEAN CORPUSCULAR VOLUME 104 fL (79-100); MONO # 0.8 x10^3/uL (0.0-1.1); MONO % 7 % (0-9); NEUT # 7.9 x10^3/uL (1.8-7.7); NEUT % 64 % (31-73); PLATELET COUNT 340 x10^3/uL (140-400); RED BLOOD COUNT 4.47 x10^6/uL (4.30-5.70); RED CELL DISTRIBUTION WIDTH 12.6 % (11.5-14.5); WHITE BLOOD COUNT 12.4 x10^3/uL (4.0-11.0)
[2019-11-05] MEDS ORDERED: INSULIN REGULAR VIAL 100 UNIT in IV NORMAL SALINE 100ML 100 ML IV PRN (16:00)
[2019-11-05] MEDS ORDERED: ONDANSETRON PF 4 MG/2 ML VIAL. IV ONE (16:00)
[2019-11-05] MEDS ORDERED: INSULIN,REGULAR 100 UNIT DRIP 100 ML IV ONE (16:00)
[2019-11-05] MEDS ORDERED: IV NORMAL SALINE 1000ML BAG 1,000 ML IV ONE (16:00)
[2019-11-05 16:15] LABS: ALBUMIN 4.6 g/dL (3.4-5.0); ALBUMIN/GLOBULIN RATIO 1.2 (1.0-1.7); CALCIUM 9.8 mg/dL (8.5-10.1); CREATININE 1.3 mg/dL (0.7-1.3); GFR 69.7; MAGNESIUM 2.2 mg/dL (1.8-2.4); POTASSIUM 4.3 mmol/L (3.5-5.1); TOTAL BILIRUBIN 0.9 mg/dL (0.2-1.0); TOTAL PROTEIN 8.4 g/dL (6.4-8.2)
[2019-11-05] MEDS ORDERED: IV NORMAL SALINE 1000ML BAG 1,000 ML IV SCH ×2 (16:25→18:30)
--- NOTE | 2019-11-05 16:25 | PHYS DOC ---
Past Medical History Past Medical History: Diabetes-Type I Past Surgical History: Other Additional Past Surgical Histo: right foot Smoking Status: Current Every Day Smoker Alcohol Use: Occasionally Drug Use: Cocaine, Marijuana General Adult EDM: Chief Complaint: HYPERGLYCEMIA HPI: HPI: Patient is a 23-year-old type I diabetic who presents with a 1 day history of nausea vomiting and general malaise. He states this feels very similar to his previous bouts of diabetic ketoacidosis. He denies any fever chills or sweats. He denies any melena or hematemesis. He states he has been taking his medication as directed. Patient also states that his low back is painful today much worse with any movement. [] Review of Systems: Review of Systems: Constitutional: Denies fever or chills. [] Eyes: Denies change in visual acuity. [] HENT: Denies nasal congestion or sore throat. [] Respiratory: Denies cough or shortness of breath. [] Cardiovascular: Denies chest pain or edema. [] GI: Per HPI. [] : Denies dysuria. [] Musculoskeletal: Denies back pain or joint pain. [] Integument: Denies rash. [] Neurologic: Denies headache, focal weakness or sensory changes. [] Endocrine: Denies polyuria or polydipsia. [] Lymphatic: Denies swollen glands. [] Psychiatric: Denies depression or anxiety. [] Heart Score: Risk Factors: Risk Factors: DM, Current or recent (<one month) smoker, HTN, HLP, family history of CAD, obesity. Risk Scores: Score 0 - 3: 2.5% MACE over next 6 weeks - Discharge Home Score 4 - 6: 20.3% MACE over next 6 weeks - Admit for Clinical Observation Score 7 - 10: 72.7% MACE over next 6 weeks - Early Invasive Strategies Current Medications: Current Medications Medications (Trade) Dose Ordered Sig/Nam Start Time Stop Time Status Last Admin Dose Admin Insulin Human Regular 100 ml @ 0 mls/hr 1X ONCE 11/05/19 16:00 11/05/19 16:01 DC Insulin Human Regular 100 unit/ Sodium Chloride 101 ml @ 0 mls/hr CONT PRN PRN 11/05/19 16:00 Ondansetron HCl (Zofran) 4 mg 1X ONCE 11/05/19 16:00 11/05/19 16:01 DC 11/05/19 16:18 4 MG Sodium Chloride 1,000 ml @ 1,000 mls/hr 1X ONCE 11/05/19 16:00 11/05/19 16:59 11/05/19 16:00 1,000 MLS/HR Allergies: Allergies: Allergies Coded Allergies Type Severity Reaction Last Updated Verified Penicillins Allergy Intermediate 05/27/15 Yes amoxicillin Allergy Intermediate 05/27/15 Yes cefaclor Allergy Intermediate 05/04/16 Yes Physical Exam: PE: Constitutional: Well developed, well nourished, appears [] HENT: Normocephalic, atraumatic, bilateral external ears normal, oropharynx moist, no oral exudates, nose normal. [] Eyes: PERRLA, EOMI, conjunctiva normal, no discharge. [] Neck: Normal range of motion, no tenderness, supple, no stridor. [] Cardiovascular: Tachycardic no murmur [] Lungs & Thorax: Bilateral breath sounds clear to auscultation [] Abdomen: General tender to palp no rebound or guarding. [] Skin: Warm, dry, no erythema, no rash. [] Back: No tenderness, no CVA tenderness. [] Extremities: No tenderness, no cyanosis, no clubbing, ROM intact, no edema. [] Neurologic: Alert and oriented X 3, normal motor function, normal sensory function, no focal deficits noted. [] Psychologic: Anxious [] Current Patient Data: Labs: Laboratory Tests Test 11/05/19 15:48 White Blood Count 12.4 x10^3/uL (4.0-11.0) H Red Blood Count 4.47 x10^6/uL (4.30-5.70) Hemoglobin 15.3 g/dL (13.0-17.5) Hematocrit 46.5 % (39.0-53.0) Mean Corpuscular Volume 104 fL (79-100) H Mean Corpuscular Hemoglobin 34 pg (25-35) Mean Corpuscular Hemoglobin Concent 33 g/dL (31-37) Red Cell Distribution Width 12.6 % (11.5-14.5) Platelet Count 340 x10^3/uL (140-400) Neutrophils (%) (Auto) 64 % (31-73) Lymphocytes (%) (Auto) 29 % (24-48) Monocytes (%) (Auto) 7 % (0-9) Eosinophils (%) (Auto) 0 % (0-3) Basophils (%) (Auto) 1 % (0-3) Neutrophils # (Auto) 7.9 x10^3/uL (1.8-7.7) H Lymphocytes # (Auto) 3.6 x10^3/uL (1.0-4.8) Monocytes # (Auto) 0.8 x10^3/uL (0.0-1.1) Eosinophils # (Auto) 0.0 x10^3/uL (0.0-0.7) Basophils # (Auto) 0.1 x10^3/uL (0.0-0.2) Sodium Level 136 mmol/L (136-145) Potassium Level 4.3 mmol/L (3.5-5.1) Chloride Level 92 mmol/L (98-107) L Carbon Dioxide Level 10 mmol/L (21-32) *L Anion Gap 34 (6-14) H Blood Urea Nitrogen 13 mg/dL (8-26) Creatinine 1.3 mg/dL (0.7-1.3) Estimated GFR (Cockcroft-Gault) 69.7 BUN/Creatinine Ratio 10 (6-20) Glucose Level 667 mg/dL (70-99) *H Calcium Level 9.8 mg/dL (8.5-10.1) Magnesium Level 2.2 mg/dL (1.8-2.4) Total Bilirubin 0.9 mg/dL (0.2-1.0) Aspartate Amino Transferase (AST) 22 U/L (15-37) Alanine Aminotransferase (ALT) 22 U/L (16-63) Alkaline Phosphatase 131 U/L (46-116) H Total Protein 8.4 g/dL (6.4-8.2) H Albumin 4.6 g/dL (3.4-5.0) Albumin/Globulin Ratio 1.2 (1.0-1.7) Ethyl Alcohol Level < 10 mg/dL (0-10) Laboratory Tests 11/05/19 15:48 Laboratory Tests 11/05/19 15:48 Vital Signs: Vital Signs Date Time Temp Pulse Resp B/P (MAP) Pulse Ox O2 Delivery O2 Flow Rate FiO2 11/05/19 15:49 97.9 108 12 162/85 (110) 100 Room Air 97.9 EKG: EKG: [] Radiology/Procedures: Radiology/Procedures: [] Course & Med Decision Making: Course & Med Decision Making Pertinent Labs and Imaging studies reviewed. (See chart for details) [CRITICAL CARE: Time spent was 35 minutes. This includes medical management, evaluation, reevaluation, discussion with consultants and family. Critical Care does NOT include time spent on separately billed procedures. ED course: Evaluation reveals a 23-year-old male with type 1 diabetes who started feeling sick today. He was noted to be in diabetic ketoacidosis. He was given IV fluids and started on insulin drip. He will be admitted to the [facility] Disclaimer: [facility] Disclaimer: This electronic medical record was generated, in whole or in part, using a voice recognition dictation system. Departure Departure Impression: Primary Impression: DKA (diabetic ketoacidoses) Qualified Codes: E10.10 - Type 1 diabetes mellitus with ketoacidosis without coma Disposition: ADMITTED INPATIENT Admitting Physician: SONIA Condition: GUARDED Referrals: Edel RIGGS MD (PCP) Justicifation of Admission Dx: Justifications for Admission: Justification of Admission Dx: Yes DKA: DKA BRITTANY BONILLA DO Nov 05, 2019 16:25
[2019-11-05 16:27] LABS: BASE EXCESS ABG -20 mmol/L (-3-3); HCO3 ABG 6 mmol/L (21-28); PO2 ABG 132 mmHg (85-108); SAT O2 ABG 98 % (92-99)
[2019-11-05 16:28] LABS: FIO2 ABG 21; PCO2 ABG 17 mmHg (35-46)
[2019-11-05] MEDS ORDERED: ONDANSETRON PF 4 MG/2 ML VIAL. IV PRN (16:30)
[2019-11-05] MEDS: CAPSAICIN 0.025% TOPICAL CREAM 60GM TUBE. TP SCH ×2 (16:45→21:04)
[2019-11-05] MEDS ORDERED: LOPERAMIDE 2 MG CAPSULE PO PRN (16:45)
[2019-11-05] MEDS: fentaNYL PF VIAL 100 MCG/2 ML VIAL IV PRN ×4 (17:13→23:58)
[2019-11-05 17:45] VITALS: BP 152/85
[2019-11-05 17:45] LABS: BARBITURATES NEG (NEG); BENZODIAZEPINES NEG (NEG); CANNABINOIDS NEG (NEG); COCAINE POS (NEG); METHADONE NEG (NEG); OPIATES NEG (NEG); PHENCYCLIDINE NEG (NEG)
[2019-11-05 17:47] LABS: BILIRUBIN,URINE NEGATIVE (NEG); CLARITY,URINE CLEAR; COLOR,URINE YELLOW; NITRITE,URINE NEGATIVE (NEG); PROTEIN,URINE NEGATIVE (NEG-TRACE); UROBILINOGEN,URINE 0.2 mg/dL (0.2 mg/dL)
[2019-11-05 17:47] LABS: AMPHETAMINE/METHAMPHETAMINE NEG (NEG)
[2019-11-05 17:54] LABS: BACTERIA,URINE 0 /HPF (0-FEW); RBC,URINE 0 /HPF (0-2); WBC,URINE 0 /HPF (0-4)
[2019-11-05] MEDS ORDERED: POTASSIUM CHLORIDE 10MEQ 100 ML IV PRN (18:15)
--- NOTE | 2019-11-05 19:34 | PDOC1 ---
History and Physical Date of Service: DOS: DATE: 11/05/19 TIME: 19:30 Chief Complaint: Problems: (1) Concern about STD in male without diagnosis (2) Bronchitis (3) Alcoholic intoxication (4) Cocaine abuse (5) DKA (diabetic ketoacidoses) Chief Complain: Hyperglycemia History of Present Illness: HPI: This is a 23-year-old male who has had diabetes for many years since he was a little kid I think he is noncompliant He even does cocaine Presented with 1 day history of nausea vomiting abdominal pain malaise polydipsia polyuria On the ER we noticed that he is in DKA We placed him on insulin drip and IV fluids he is now in the ICU Past Medical/Surgical History: PMH/PSH: Past Medical History: Diabetes-Type I noncompliance Past Surgical History: Other Additional Past Surgical Histo: right foot Smoking Status: Current Every Day Smoker Alcohol Use: Occasionally Drug Use: Cocaine, Marijuana Allergies: Allergies: Coded Allergies: Penicillins (Verified Allergy, Intermediate, 05/27/15) amoxicillin (Verified Allergy, Intermediate, 05/27/15) cefaclor (Verified Allergy, Intermediate, 05/04/16) Family History: Family History: Hypertension diabetes Social History: Social History: He smokes and takes cocaine sometimes drinks a little 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 Current 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: Current Medications Current Medications Sodium Chloride 1,000 ml @ 1,000 mls/hr 1X ONCE IV Last administered on 11/05/19at 16:00; Start 11/05/19 at 16:00; Stop 11/05/19 at 16:59; Status DC Ondansetron HCl (Zofran) 4 mg 1X ONCE IV Last administered on 11/05/19at 16:18; Start 11/05/19 at 16:00; Stop 11/05/19 at 16:01; Status DC Insulin Human Regular 100 unit/ Sodium Chloride 101 ml @ 0 mls/hr CONT PRN PRN IV PER PROTOCOL; Start 11/05/19 at 16:00 Insulin Human Regular 100 ml @ 0 mls/hr 1X ONCE IV Last administered on 11/05/19at 16:24; Start 11/05/19 at 16:00; Stop 11/05/19 at 16:01; Status DC Ondansetron HCl (Zofran) 4 mg PRN Q8HRS PRN IV NAUSEA/VOMITING; Start 11/05/19 at 16:30; Stop 11/06/19 at 16:29 Sodium Chloride 1,000 ml @ 1,000 mls/hr Q1H IV Last administered on 11/05/19at 16:25; Start 11/05/19 at 16:25; Stop 11/05/19 at 17:24; Status DC Magnesium Sulfate 100 ml @ 25 mls/hr PRN DAILY PRN IV SEE COMMENTS; Start 10/20 10/08 at 09:00 Capsaicin (Zostrix) 1 denise TID TP Last administered on 11/05/19at 16:45; Start 11/05/19 at 17:00 Fentanyl Citrate (Fentanyl 2ml Vial) 50 mcg PRN Q2HRS PRN IV PAIN Last administered on 11/05/19at 19:28; Start 11/05/19 at 16:45 Loperamide HCl (Imodium) 2 mg PRN Q15MIN PRN PO DIARRHEA Last administered on 11/05/19at 17:01; Start 11/05/19 at 16:45 Sodium Chloride 1,000 ml @ 250 mls/hr Q4H IV Last administered on 11/05/19at 19:29; Start 11/05/19 at 18:30 Potassium Chloride/Water 100 ml @ 100 mls/hr PRN Q1HR PRN IV SEE COMMENTS; Start 11/05/19 at 18:15 Potassium Chloride/Water 100 ml @ 100 mls/hr PRN Q1HR PRN IV SEE COMMENTS; Start 11/05/19 at 18:15 Potassium Chloride/Water 100 ml @ 100 mls/hr PRN Q1HR PRN IV SEE COMMENTS; Start 11/05/19 at 18:15 Diclofenac Sodium (Voltaren) 1 denise BID TP ; Start 11/05/19 at 21:00 Active Scripts Active Novolog Flexpen (Insulin Aspart) 100 Unit/1 Ml Insuln.pen 18 Units SQ QIDACHS 30 Days Basaglar Kwikpen U-100 (Insulin Glargine,Hum.rec.anlog) 100 Unit/1 Ml Insuln.pen 32 Units SQ HS 30 Days Proair Hfa (Albuterol Sulfate) 8.5 Gm Hfa.aer.ad 8.5 Gm IH TID PRN 30 Days ROS: Review of Systems Review of System REVIEW OF SYSTEMS: GENERAL: Denies weakness SKIN: No bruising, hair changes or rashes. EYES: No blurred, double or loss of vision. NOSE AND THROAT: No history of nosebleeds, hoarseness or sore throat. HEART: No history of palpitations, chest pain or shortness of breath on exertion. LUNGS: Denies cough, hemoptysis, wheezing or shortness of breath. GASTROINTESTINAL: Complains of some abdominal pain although it is improving and now he wants to eat GENITOURINARY: No history of frequency, urgency, hesitancy or nocturia. NEUROLOGIC: Denies history of numbness, tingling, or tremor. PSYCHIATRIC: No history of panic, anxiety or depression. ENDOCRINE: No history of heat or cold intolerance, polyuria or polydipsia. EXTREMITIES: Denies joint pain, pain on walking or stiffness. Physical Exam: Vital Signs: Vital Signs Date Time Temp Pulse Resp B/P (MAP) Pulse Ox O2 Delivery O2 Flow Rate FiO2 11/05/19 19:28 16 99 Room Air 11/05/19 17:45 97.8 131 152/85 (107) 97.8 Physcial Exam: GEN: No apparent distress. Alert and oriented HEENT: Normal cephalic, atraumatic, external auditory canals are patent EYES: Extraocular muscles are intact, pupil are equally round and reactive to light and accommodation MUSCULOSKELETAL: Well developed , well nourished, good range of motion ENDOCRINE: No thyromegaly was palpated LYMPHATICS: No cervical chain or axillary nodes were noted HEMATOPOIETIC: No bruising NECK: Supple, no JVD, no thyromegaly was noted LUNGS: Clear to auscultation in all lung ramirez without rhonchi or wheezing HEART: RRR, S!, S2 present. Peripheral pulses intact, no obvious murmurs n oted ABDOMEN: Soft, nontender. Positive bowel sounds, no organomegaly, normal bowel sounds EXTREMITIES: Without clubbing, cyanosis, or edema. Pedal pulses intact. Negative Homans sign NEUROLOGIC: Normal speech and tone. A&O x 3, moves all extremities, no obvious focal deficits PSYCHIATRIC: Normal affect, normal mood. Stable SKIN: No ulcerations or rashes, good skin turgor, no jaundice VASCULAR: Good capillary refill, neurovascular bundle appears to be intact Labs: Labs: Laboratory Tests Test 11/05/19 15:48 11/05/19 16:27 11/05/19 17:23 11/05/19 17:24 White Blood Count 12.4 x10^3/uL (4.0-11.0) Red Blood Count 4.47 x10^6/uL (4.30-5.70) Hemoglobin 15.3 g/dL (13.0-17.5) Hematocrit 46.5 % (39.0-53.0) Mean Corpuscular Volume 104 fL (79-100) Mean Corpuscular Hemoglobin 34 pg (25-35) Mean Corpuscular Hemoglobin Concent 33 g/dL (31-37) Red Cell Distribution Width 12.6 % (11.5-14.5) Platelet Count 340 x10^3/uL (140-400) Neutrophils (%) (Auto) 64 % (31-73) Lymphocytes (%) (Auto) 29 % (24-48) Monocytes (%) (Auto) 7 % (0-9) Eosinophils (%) (Auto) 0 % (0-3) Basophils (%) (Auto) 1 % (0-3) Neutrophils # (Auto) 7.9 x10^3/uL (1.8-7.7) Lymphocytes # (Auto) 3.6 x10^3/uL (1.0-4.8) Monocytes # (Auto) 0.8 x10^3/uL (0.0-1.1) Eosinophils # (Auto) 0.0 x10^3/uL (0.0-0.7) Basophils # (Auto) 0.1 x10^3/uL (0.0-0.2) Sodium Level 136 mmol/L (136-145) Potassium Level 4.3 mmol/L (3.5-5.1) Chloride Level 92 mmol/L (98-107) Carbon Dioxide Level 10 mmol/L (21-32) Anion Gap 34 (6-14) Blood Urea Nitrogen 13 mg/dL (8-26) Creatinine 1.3 mg/dL (0.7-1.3) Estimated GFR (Cockcroft-Gault) 69.7 BUN/Creatinine Ratio 10 (6-20) Glucose Level 667 mg/dL (70-99) Calcium Level 9.8 mg/dL (8.5-10.1) Magnesium Level 2.2 mg/dL (1.8-2.4) Total Bilirubin 0.9 mg/dL (0.2-1.0) Aspartate Amino Transf (AST/SGOT) 22 U/L (15-37) Alanine Aminotransferase (ALT/SGPT) 22 U/L (16-63) Alkaline Phosphatase 131 U/L (46-116) Total Protein 8.4 g/dL (6.4-8.2) Albumin 4.6 g/dL (3.4-5.0) Albumin/Globulin Ratio 1.2 (1.0-1.7) Ethyl Alcohol Level < 10 mg/dL (0-10) O2 Saturation 98 % (92-99) Arterial Blood pH 7.17 (7.35-7.45) Arterial Blood pCO2 at Patient Temp 17 mmHg (35-46) Arterial Blood pO2 at Patient Temp 132 mmHg (85-108) Arterial Blood HCO3 6 mmol/L (21-28) Arterial Blood Base Excess -20 mmol/L (-3-3) FiO2 21 Glucose (Fingerstick) 410 mg/dL (70-99) Urine Collection Type Unknown Urine Color Yellow Urine Clarity Clear Urine pH 5.0 (<5.0-8.0) Urine Specific [place] 1.025 (1.000-1.030) Urine Protein Negative mg/dL (NEG-TRACE) Urine Glucose (UA) >=1000 mg/dL (NEG) Urine Ketones (Stick) >=80 mg/dL (NEG) Urine Blood Negative (NEG) Urine Nitrite Negative (NEG) Urine Bilirubin Negative (NEG) Urine Urobilinogen Dipstick 0.2 mg/dL (0.2 mg/dL) Urine Leukocyte Esterase Negative (NEG) Urine RBC 0 /HPF (0-2) Urine WBC 0 /HPF (0-4) Urine Bacteria 0 /HPF (0-FEW) Urine Mucus Slight /LPF Test 11/05/19 17:30 11/05/19 18:27 Urine Opiates Screen Neg (NEG) Urine Methadone Screen Neg (NEG) Urine Barbiturates Neg (NEG) Urine Phencyclidine Screen Neg (NEG) Urine Amphetamine/Methamphetamine Neg (NEG) Urine Benzodiazepines Screen Neg (NEG) Urine Cocaine Screen Pos (NEG) Urine Cannabinoids Screen Neg (NEG) Urine Ethyl Alcohol Neg (NEG) Glucose (Fingerstick) 303 mg/dL (70-99) Laboratory Tests Test 11/05/19 15:48 11/05/19 16:27 11/05/19 17:23 11/05/19 17:24 White Blood Count 12.4 x10^3/uL (4.0-11.0) Red Blood Count 4.47 x10^6/uL (4.30-5.70) Hemoglobin 15.3 g/dL (13.0-17.5) Hematocrit 46.5 % (39.0-53.0) Mean Corpuscular Volume 104 fL (79-100) Mean Corpuscular Hemoglobin 34 pg (25-35) Mean Corpuscular Hemoglobin Concent 33 g/dL (31-37) Red Cell Distribution Width 12.6 % (11.5-14.5) Platelet Count 340 x10^3/uL (140-400) Neutrophils (%) (Auto) 64 % (31-73) Lymphocytes (%) (Auto) 29 % (24-48) Monocytes (%) (Auto) 7 % (0-9) Eosinophils (%) (Auto) 0 % (0-3) Basophils (%) (Auto) 1 % (0-3) Neutrophils # (Auto) 7.9 x10^3/uL (1.8-7.7) Lymphocytes # (Auto) 3.6 x10^3/uL (1.0-4.8) Monocytes # (Auto) 0.8 x10^3/uL (0.0-1.1) Eosinophils # (Auto) 0.0 x10^3/uL (0.0-0.7) Basophils # (Auto) 0.1 x10^3/uL (0.0-0.2) Sodium Level 136 mmol/L (136-145) Potassium Level 4.3 mmol/L (3.5-5.1) Chloride Level 92 mmol/L (98-107) Carbon Dioxide Level 10 mmol/L (21-32) Anion Gap 34 (6-14) Blood Urea Nitrogen 13 mg/dL (8-26) Creatinine 1.3 mg/dL (0.7-1.3) Estimated GFR (Cockcroft-Gault) 69.7 BUN/Creatinine Ratio 10 (6-20) Glucose Level 667 mg/dL (70-99) Calcium Level 9.8 mg/dL (8.5-10.1) Magnesium Level 2.2 mg/dL (1.8-2.4) Total Bilirubin 0.9 mg/dL (0.2-1.0) Aspartate Amino Transf (AST/SGOT) 22 U/L (15-37) Alanine Aminotransferase (ALT/SGPT) 22 U/L (16-63) Alkaline Phosphatase 131 U/L (46-116) Total Protein 8.4 g/dL (6.4-8.2) Albumin 4.6 g/dL (3.4-5.0) Albumin/Globulin Ratio 1.2 (1.0-1.7) Ethyl Alcohol Level < 10 mg/dL (0-10) O2 Saturation 98 % (92-99) Arterial Blood pH 7.17 (7.35-7.45) Arterial Blood pCO2 at Patient Temp 17 mmHg (35-46) Arterial Blood pO2 at Patient Temp 132 mmHg (85-108) Arterial Blood HCO3 6 mmol/L (21-28) Arterial Blood Base Excess -20 mmol/L (-3-3) FiO2 21 Glucose (Fingerstick) 410 mg/dL (70-99) Urine Collection Type Unknown Urine Color Yellow Urine Clarity Clear Urine pH 5.0 (<5.0-8.0) Urine Specific [place] 1.025 (1.000-1.030) Urine Protein Negative mg/dL (NEG-TRACE) Urine Glucose (UA) >=1000 mg/dL (NEG) Urine Ketones (Stick) >=80 mg/dL (NEG) Urine Blood Negative (NEG) Urine Nitrite Negative (NEG) Urine Bilirubin Negative (NEG) Urine Urobilinogen Dipstick 0.2 mg/dL (0.2 mg/dL) Urine Leukocyte Esterase Negative (NEG) Urine RBC 0 /HPF (0-2) Urine WBC 0 /HPF (0-4) Urine Bacteria 0 /HPF (0-FEW) Urine Mucus Slight /LPF Test 11/05/19 17:30 11/05/19 18:27 Urine Opiates Screen Neg (NEG) Urine Methadone Screen Neg (NEG) Urine Barbiturates Neg (NEG) Urine Phencyclidine Screen Neg (NEG) Urine Amphetamine/Methamphetamine Neg (NEG) Urine Benzodiazepines Screen Neg (NEG) Urine Cocaine Screen Pos (NEG) Urine Cannabinoids Screen Neg (NEG) Urine Ethyl Alcohol Neg (NEG) Glucose (Fingerstick) 303 mg/dL (70-99) Assessment/Plan Assessment/Plan DKA Plan ICU monitoring IV fluids IV insulin DKA protocol Home meds DVT prophylaxis Full code Justicifation of Admission Dx: Justifications for Admission: Justification of Admission Dx: Yes DKA: DKA JENNIFER DICKINSON III DO Nov 05, 2019 19:34
[2019-11-05 20:00] VITALS: BP 128/65
[2019-11-05 20:46] LABS: CALCIUM 8.6 mg/dL (8.5-10.1); CREATININE 0.9 mg/dL (0.7-1.3); GFR 106.5; MAGNESIUM 1.7 mg/dL (1.8-2.4); PHOSPHORUS 2.2 mg/dL (2.6-4.7)
[2019-11-05 21:00] VITALS: BP 124/67
[2019-11-05] MEDS: IV DEXTROSE 5% - 0.9 % NACL 1,000 ML IV SCH ×2 (21:02→23:58)
[2019-11-05] MEDS: POTASSIUM CHLORIDE 10MEQ 100 ML IV PRN ×2 (21:02→22:11)
[2019-11-05] MEDS: DICLOFENAC SODIUM 1% TOPICAL GEL 100GM TUBE. TP SCH (21:03)
[2019-11-05 22:00] VITALS: BP 118/54
[2019-11-05 23:00] VITALS: BP 117/59
[2019-11-06] VITALS (14 sets, daily range): BP systolic 105–126; BP diastolic 56–84
[2019-11-06 01:37] LABS: CALCIUM 8.1 mg/dL (8.5-10.1); GFR 94.3; POTASSIUM 3.7 mmol/L (3.5-5.1)
[2019-11-06] MEDS: fentaNYL PF VIAL 100 MCG/2 ML VIAL IV PRN ×5 (03:17→11:39)
[2019-11-06] MEDS: POTASSIUM CHLORIDE 10MEQ 100 ML IV PRN ×3 (03:17→05:17)
[2019-11-06] MEDS: IV DEXTROSE 5% - 0.9 % NACL 1,000 ML IV SCH ×2 (05:30→09:44)
[2019-11-06 06:29] LABS: CALCIUM 7.8 mg/dL (8.5-10.1); CREATININE 0.5 mg/dL (0.7-1.3); GFR 209.9; POTASSIUM 4.3 mmol/L (3.5-5.1)
--- NOTE | 2019-11-06 07:52 | PDOC ---
Infectious Disease Note Vital Sign Vital Signs Vital Signs Date Time Temp Pulse Resp B/P (MAP) Pulse Ox O2 Delivery O2 Flow Rate FiO2 11/06/19 07:31 99 Room Air 11/06/19 07:17 97.9 100 112/67 (82) 97.9 11/06/19 06:10 16 Labs Lab Laboratory Tests Test 11/05/19 15:48 11/05/19 16:27 11/05/19 17:23 11/05/19 17:24 White Blood Count 12.4 x10^3/uL (4.0-11.0) Red Blood Count 4.47 x10^6/uL (4.30-5.70) Hemoglobin 15.3 g/dL (13.0-17.5) Hematocrit 46.5 % (39.0-53.0) Mean Corpuscular Volume 104 fL (79-100) Mean Corpuscular Hemoglobin 34 pg (25-35) Mean Corpuscular Hemoglobin Concent 33 g/dL (31-37) Red Cell Distribution Width 12.6 % (11.5-14.5) Platelet Count 340 x10^3/uL (140-400) Neutrophils (%) (Auto) 64 % (31-73) Lymphocytes (%) (Auto) 29 % (24-48) Monocytes (%) (Auto) 7 % (0-9) Eosinophils (%) (Auto) 0 % (0-3) Basophils (%) (Auto) 1 % (0-3) Neutrophils # (Auto) 7.9 x10^3/uL (1.8-7.7) Lymphocytes # (Auto) 3.6 x10^3/uL (1.0-4.8) Monocytes # (Auto) 0.8 x10^3/uL (0.0-1.1) Eosinophils # (Auto) 0.0 x10^3/uL (0.0-0.7) Basophils # (Auto) 0.1 x10^3/uL (0.0-0.2) Sodium Level 136 mmol/L (136-145) Potassium Level 4.3 mmol/L (3.5-5.1) Chloride Level 92 mmol/L (98-107) Carbon Dioxide Level 10 mmol/L (21-32) Anion Gap 34 (6-14) Blood Urea Nitrogen 13 mg/dL (8-26) Creatinine 1.3 mg/dL (0.7-1.3) Estimated GFR (Cockcroft-Gault) 69.7 BUN/Creatinine Ratio 10 (6-20) Glucose Level 667 mg/dL (70-99) Calcium Level 9.8 mg/dL (8.5-10.1) Magnesium Level 2.2 mg/dL (1.8-2.4) Total Bilirubin 0.9 mg/dL (0.2-1.0) Aspartate Amino Transf (AST/SGOT) 22 U/L (15-37) Alanine Aminotransferase (ALT/SGPT) 22 U/L (16-63) Alkaline Phosphatase 131 U/L (46-116) Total Protein 8.4 g/dL (6.4-8.2) Albumin 4.6 g/dL (3.4-5.0) Albumin/Globulin Ratio 1.2 (1.0-1.7) Ethyl Alcohol Level < 10 mg/dL (0-10) O2 Saturation 98 % (92-99) Arterial Blood pH 7.17 (7.35-7.45) Arterial Blood pCO2 at Patient Temp 17 mmHg (35-46) Arterial Blood pO2 at Patient Temp 132 mmHg (85-108) Arterial Blood HCO3 6 mmol/L (21-28) Arterial Blood Base Excess -20 mmol/L (-3-3) FiO2 21 Glucose (Fingerstick) 410 mg/dL (70-99) Urine Collection Type Unknown Urine Color Yellow Urine Clarity Clear Urine pH 5.0 (<5.0-8.0) Urine Specific [place] 1.025 (1.000-1.030) Urine Protein Negative mg/dL (NEG-TRACE) Urine Glucose (UA) >=1000 mg/dL (NEG) Urine Ketones (Stick) >=80 mg/dL (NEG) Urine Blood Negative (NEG) Urine Nitrite Negative (NEG) Urine Bilirubin Negative (NEG) Urine Urobilinogen Dipstick 0.2 mg/dL (0.2 mg/dL) Urine Leukocyte Esterase Negative (NEG) Urine RBC 0 /HPF (0-2) Urine WBC 0 /HPF (0-4) Urine Bacteria 0 /HPF (0-FEW) Urine Mucus Slight /LPF Test 11/05/19 17:30 11/05/19 18:27 8/16/20 20:02 11/05/19 21:08 Urine Opiates Screen Neg (NEG) Urine Methadone Screen Neg (NEG) Urine Barbiturates Neg (NEG) Urine Phencyclidine Screen Neg (NEG) Urine Amphetamine/Methamphetamine Neg (NEG) Urine Benzodiazepines Screen Neg (NEG) Urine Cocaine Screen Pos (NEG) Urine Cannabinoids Screen Neg (NEG) Urine Ethyl Alcohol Neg (NEG) Glucose (Fingerstick) 303 mg/dL (70-99) 162 mg/dL (70-99) 157 mg/dL (70-99) Sodium Level 137 mmol/L (136-145) Potassium Level 4.0 mmol/L (3.5-5.1) Chloride Level 99 mmol/L (98-107) Carbon Dioxide Level 19 mmol/L (21-32) Anion Gap 19 (6-14) Blood Urea Nitrogen 12 mg/dL (8-26) Creatinine 0.9 mg/dL (0.7-1.3) Estimated GFR (Cockcroft-Gault) 106.5 Glucose Level 153 mg/dL (70-99) Calcium Level 8.6 mg/dL (8.5-10.1) Phosphorus Level 2.2 mg/dL (2.6-4.7) Magnesium Level 1.7 mg/dL (1.8-2.4) Test 11/05/19 22:08 11/05/19 23:04 11/06/19 00:03 11/06/19 01:15 Glucose (Fingerstick) 213 mg/dL (70-99) 208 mg/dL (70-99) 182 mg/dL (70-99) Sodium Level 138 mmol/L (136-145) Potassium Level 3.7 mmol/L (3.5-5.1) Chloride Level 104 mmol/L (98-107) Carbon Dioxide Level 22 mmol/L (21-32) Anion Gap 12 (6-14) Blood Urea Nitrogen 8 mg/dL (8-26) Creatinine 1.0 mg/dL (0.7-1.3) Estimated GFR (Cockcroft-Gault) 94.3 Glucose Level 143 mg/dL (70-99) Calcium Level 8.1 mg/dL (8.5-10.1) Test 11/06/19 01:18 11/06/19 02:11 11/06/19 03:11 11/06/19 04:19 Glucose (Fingerstick) 156 mg/dL (70-99) 144 mg/dL (70-99) 106 mg/dL (70-99) 93 mg/dL (70-99) Test 11/06/19 05:14 11/06/19 05:30 11/06/19 06:34 11/06/19 07:37 Glucose (Fingerstick) 116 mg/dL (70-99) 156 mg/dL (70-99) 144 mg/dL (70-99) Sodium Level 137 mmol/L (136-145) Potassium Level 4.3 mmol/L (3.5-5.1) Chloride Level 105 mmol/L (98-107) Carbon Dioxide Level 20 mmol/L (21-32) Anion Gap 12 (6-14) Blood Urea Nitrogen 8 mg/dL (8-26) Creatinine 0.5 mg/dL (0.7-1.3) Estimated GFR (Cockcroft-Gault) 209.9 Glucose Level 108 mg/dL (70-99) Calcium Level 7.8 mg/dL (8.5-10.1) Objective Assessment Leukocytosis Abx allergies DKA Cocaine abuse Plan Plan of Care No need for abx - asymptomatic F/u Chlamydia/GC - ordered per his request - he is asymptomatic - states he routinely checks whenever he is admitted F/u labs Thank you # [id number] TOM LEWIS MD Nov 06, 2019 07:52
[2019-11-06] MEDS: CAPSAICIN 0.025% TOPICAL CREAM 60GM TUBE. TP SCH (08:49)
[2019-11-06] MEDS: DICLOFENAC SODIUM 1% TOPICAL GEL 100GM TUBE. TP SCH (08:49)
[2019-11-06] MEDS ORDERED: MAGNESIUM SULFATE 4GM 100 ML IV PRN (09:00)
--- NOTE | 2019-11-06 09:27 | CONS ---
DATE OF CONSULTATION: 11/06/2019 PATIENT'S ROOM: ICU 5. REQUESTING PHYSICIAN: Dr. Marie. REASON FOR CONSULTATION: Leukocytosis. HISTORY OF PRESENT ILLNESS: The patient is a 23-year-old gentleman with a history of diabetes and noncompliance, also has a history of substance abuse. He states he awakened yesterday with some nausea, chills and sweats. He had a little bit of cough, but the cough preceded his vomiting. He has some generalized malaise. He denies any ill contacts, but denies any chest pain. No sputum production. No nausea, vomiting, or diarrhea. No dysuria, frequency, urgency, or abnormal penile discharge. Denies any joint swelling. No rashes. Denies any ill contacts. On arrival, he had a white count of 12.4. His glucose was 667, carbon dioxide was 10. Urinalysis was clean. Drug screen was positive for cocaine. There has been no imaging. He has been afebrile. He has not received any antibiotics. He was admitted to the Intensive Care Unit. Currently, he is sitting upright in bed, states he is feeling much better. PAST MEDICAL HISTORY: Positive for hypertension, anxiety, depression, acute renal failure, diabetes, previous DKA, history of substance abuse. Denies any previous history of sexually transmitted diseases. REVIEW OF SYSTEMS: Otherwise negative except for as mentioned above. ALLERGIES: LISTED PENICILLIN, AMOXICILLIN AND CEFACLOR. He is uncertain if he has ever taken cephalexin and has not used antimicrobials in quite some time. SOCIAL HISTORY: He works at the [employer]. He uses cocaine. He uses mushrooms, history of marijuana. He has dogs at home. Again, no travel or ill contacts. FAMILY HISTORY: Positive for depression, diabetes. CURRENT MEDICATIONS: Include insulin drip, potassium, capsaicin and p.r.n. medications. PHYSICAL EXAMINATION: VITAL SIGNS: Temperature is 97.9, pulse 100, respirations 16, blood pressure 112/67, satting 99% on room air. CONSTITUTIONAL: He is pleasant, cooperative, in no acute distress. He is sitting upright in bed. HEENT: Pupils equal and reactive. Normal conjunctivae. Oral cavity, pharynx is clear. NECK: Supple. No JVD. LUNGS: Clear to auscultation. HEART: S1, S2. ABDOMEN: Soft, nontender. No guarding or rebound. EXTREMITIES: Without clubbing or cyanosis. No gross edema. SKIN: Warm to touch without generalized signs of rash. NEUROLOGIC: He is nonfocal. Moves all extremities. PSYCHIATRIC: Affect is appropriate. LABORATORY VALUES: White count was 12.4, hemoglobin 15.3, platelets of 340, neutrophils 64, lymphs 29, creatinine of 1 today, glucose of 143. AST was 22, ALT 22, albumin 46. IMPRESSION: 1. Leukocytosis. 2. Antibiotic allergies. 3. Diabetic ketoacidosis. 4. Cocaine abuse. RECOMMENDATIONS: Currently, no need for antibiotics. Asymptomatic. Followup chlamydia and gonorrhea probe ordered per his request. He is asymptomatic, states he routinely checks whenever he used to be admitted. Follow up labs. Thank you for allowing me to participate in the patient's care. If you have any questions, please do not hesitate to contact me. TOM LEWIS MD DR: MEL/victoriano JOB#: [id number] / [id number]
[2019-11-06] MEDS ORDERED: DEXTROSE 50% 25 GM / 50ML DISP.SYRIN. IV PRN (11:30)
[2019-11-06] MEDS ORDERED: INSULIN LISPRO 300 UNITS/3 ML VIAL. SQ SCH (12:00)
[2019-11-06] MEDS ORDERED: INSULIN GLARGINE SYRINGE. SQ ONE (12:00)
--- NOTE | 2019-11-06 15:03 | NUR ---
Discharge Note: CLEMENTE MALONEY A1 [place] [facility] Discharge instructions and discharge home medications reviewed with Patient and a copy given. All questions have been answered and understanding verbalized. The following instructions and handouts were given: follow up instructions Discontinued lines and drains: 20 guage left ac, 20 guage right ac, tips intact. patient tolerated well. Patient discharged to home with self care via mother.
== END 2019-11-06 13:45 | disposition home or self-care (01) | DRG 639 ==
LOC: ER 15:34 → 1 WEST ICU 17:09
PROVIDERS: ADMIT Internal Medicine; ATTEND Internal Medicine
DX: E10.10 Type 1 diabetes mellitus with ketoacidosis without coma (principal); F17.200 Nicotine dependence, unspecified, uncomplicated; F32.9 Major depressive disorder, single episode, unspecified; F41.9 Anxiety disorder, unspecified; F14.10 Cocaine abuse, uncomplicated; D72.829 Elevated white blood cell count, unspecified; I10 Essential (primary) hypertension; F16.90 Hallucinogen use, unspecified, uncomplicated; Z79.4 Long term (current) use of insulin; Z88.0 Allergy status to penicillin; Z88.8 Allergy status to other drugs, medicaments and biological substances; Z88.1 Allergy status to other antibiotic agents; Z91.19 Patient's noncompliance with other medical treatment and regimen; Z83.3 Family history of diabetes mellitus; Z81.8 Family history of other mental and behavioral disorders; Z82.49 Family history of ischemic heart disease and other diseases of the circulatory system
CPT/HCPCS: 36415; 36600; 80048; 80053; 80307; 81001; 82805; 82962; 83735; 84100; 85025; 87491; 87591; 96365; 96375; 99291; G0480; J1815; J2405; J3010; J3475; J3480; J7030; J7042; G0378

== ENCOUNTER 2019-11-12 16:14 | Inpatient (IN) | payer OTHER ==
[~2019-11-12] VITALS: Ht 177.8 cm; Wt 60.0 kg
[2019-11-12] VITALS (7 sets, daily range): BP systolic 136–175; BP diastolic 54–89
[2019-11-12] MEDS ORDERED: IV NORMAL SALINE 1000ML BAG 1,000 ML IV ONE ×3 (16:30→17:45)
[2019-11-12 17:05] LABS: BASO # 0.1 x10^3/uL (0.0-0.2); BASO % 1 % (0-3); EOS % 1 % (0-3); HEMATOCRIT 46.3 % (39.0-53.0); HEMOGLOBIN 15.8 g/dL (13.0-17.5); LYMPH % 37 % (24-48); MEAN CORPUSCULAR HEMOGLOBIN 35 pg (25-35); MEAN CORPUSCULAR HGB CONC 34 g/dL (31-37); MEAN CORPUSCULAR VOLUME 103 fL (79-100); MONO # 0.8 x10^3/uL (0.0-1.1); MONO % 10 % (0-9); NEUT # 4.2 x10^3/uL (1.8-7.7); NEUT % 52 % (31-73); PLATELET COUNT 366 x10^3/uL (140-400); RED CELL DISTRIBUTION WIDTH 12.9 % (11.5-14.5); WHITE BLOOD COUNT 8.1 x10^3/uL (4.0-11.0)
--- NOTE | 2019-11-12 17:09 | RAD ---
EXAM: Chest, single view. HISTORY: Chest pain. Nausea and vomiting. COMPARISON: 02/18/2019 FINDINGS: A frontal view of the chest obtained. There is no infiltrate, pleural effusion or pneumothorax. The heart is normal in size. IMPRESSION: No acute pulmonary finding. Electronically signed by: Ilsa Wolfe MD (11/12/2019 5:06 PM) [facility]
[2019-11-12 17:20] LABS: ALBUMIN 4.5 g/dL (3.4-5.0); ALBUMIN/GLOBULIN RATIO 1.1 (1.0-1.7); CREATININE 1.3 mg/dL (0.7-1.3); GFR 69.7; POTASSIUM 4.5 mmol/L (3.5-5.1); TOTAL BILIRUBIN 1.7 mg/dL (0.2-1.0); TOTAL PROTEIN 8.5 g/dL (6.4-8.2)
--- NOTE | 2019-11-12 17:28 | PHYS DOC ---
Past Medical History Past Medical History: Diabetes-Type I Past Surgical History: Other Additional Past Surgical Histo: right foot Smoking Status: Current Every Day Smoker Alcohol Use: Occasionally Drug Use: Cocaine, Marijuana General Adult EDM: Chief Complaint: HYPERGLYCEMIA HPI: HPI: Patient is a 23 year old with a chief complaint of left-sided chest pain rating to his back that began this afternoon. Patient is having significant trouble breathing. Patient has a history of diabetes and has not taken insulin today. Patient is nauseous and had vomiting in the bathroom upon arrival. Patient denies any fever or cough but has severe chest pain in the center and left side that radiates to his arms and back. Pain is worse with deep breaths. Review of Systems: Review of Systems: Constitutional: Denies fever or chills. [] Eyes: Denies change in visual acuity. [] HENT: Denies nasal congestion or sore throat. [] Respiratory: Denies cough but has shortness of breath Cardiovascular: Complains of chest pain GI: Denies abdominal pain, but has nausea, and vomiting, denies bloody stools or diarrhea. [] : Denies dysuria. [] Musculoskeletal: Denies back pain or joint pain. [] Integument: Denies rash. [] Neurologic: Denies headache, focal weakness or sensory changes. [] Endocrine: Endorses polyuria or polydipsia. [] Lymphatic: Denies swollen glands. [] Psychiatric: Denies depression or anxiety. [] Heart Score: Risk Factors: Risk Factors: DM, Current or recent (<one month) smoker, HTN, HLP, family his tory of CAD, obesity. Risk Scores: Score 0 - 3: 2.5% MACE over next 6 weeks - Discharge Home Score 4 - 6: 20.3% MACE over next 6 weeks - Admit for Clinical Observation Score 7 - 10: 72.7% MACE over next 6 weeks - Early Invasive Strategies Current Medications: Current Medications Medications (Trade) Dose Ordered Sig/Nam Start Time Stop Time Status Last Admin Dose Admin Sodium Chloride 1,000 ml @ 1,000 mls/hr 1X ONCE 11/12/19 16:30 11/12/19 17:29 11/12/19 16:50 1,000 MLS/HR Allergies: Allergies: Allergies Coded Allergies Type Severity Reaction Last Updated Verified Penicillins Allergy Intermediate 05/27/15 Yes amoxicillin Allergy Intermediate 05/27/15 Yes cefaclor Allergy Intermediate 05/04/16 Yes Physical Exam: PE: Constitutional: Well developed, well nourished, moderate distress HENT: Normocephalic, atraumatic, bilateral external ears normal, oropharynx moist, no oral exudates, nose normal. [] Eyes: PERRLA, EOMI, conjunctiva normal, no discharge. [] Neck: Normal range of motion, no tenderness, supple, no stridor. [] Cardiovascular: Tachycardia, regular rhythm no murmur Lungs & Thorax: Bilateral breath sounds clear to auscultation [] Abdomen: Bowel sounds normal, soft, no tenderness, no masses, no pulsatile masses. [] Skin: Warm, dry, no erythema, no rash. [] Back: No tenderness, no CVA tenderness. [] Extremities: No tenderness, no cyanosis, no clubbing, ROM intact, no edema. [] Neurologic: Alert and oriented X 3, normal motor function, normal sensory function, no focal deficits noted. [] Psychologic: Anxious Current Patient Data: Labs: Laboratory Tests Test 11/12/19 16:50 White Blood Count 8.1 x10^3/uL (4.0-11.0) Red Blood Count 4.50 x10^6/uL (4.30-5.70) Hemoglobin 15.8 g/dL (13.0-17.5) Hematocrit 46.3 % (39.0-53.0) Mean Corpuscular Volume 103 fL (79-100) H Mean Corpuscular Hemoglobin 35 pg (25-35) Mean Corpuscular Hemoglobin Concent 34 g/dL (31-37) Red Cell Distribution Width 12.9 % (11.5-14.5) Platelet Count 366 x10^3/uL (140-400) Neutrophils (%) (Auto) 52 % (31-73) Lymphocytes (%) (Auto) 37 % (24-48) Monocytes (%) (Auto) 10 % (0-9) H Eosinophils (%) (Auto) 1 % (0-3) Basophils (%) (Auto) 1 % (0-3) Neutrophils # (Auto) 4.2 x10^3/uL (1.8-7.7) Lymphocytes # (Auto) 3.0 x10^3/uL (1.0-4.8) Monocytes # (Auto) 0.8 x10^3/uL (0.0-1.1) Eosinophils # (Auto) 0.0 x10^3/uL (0.0-0.7) Basophils # (Auto) 0.1 x10^3/uL (0.0-0.2) Sodium Level 131 mmol/L (136-145) L Potassium Level 4.5 mmol/L (3.5-5.1) Chloride Level 90 mmol/L (98-107) L Carbon Dioxide Level 11 mmol/L (21-32) *L Anion Gap 30 (6-14) H Blood Urea Nitrogen 17 mg/dL (8-26) Creatinine 1.3 mg/dL (0.7-1.3) Estimated GFR (Cockcroft-Gault) 69.7 BUN/Creatinine Ratio 13 (6-20) Glucose Level 622 mg/dL (70-99) *H Calcium Level 10.0 mg/dL (8.5-10.1) Magnesium Level 2.0 mg/dL (1.8-2.4) Total Bilirubin 1.7 mg/dL (0.2-1.0) H Aspartate Amino Transferase (AST) 18 U/L (15-37) Alanine Aminotransferase (ALT) 21 U/L (16-63) Alkaline Phosphatase 129 U/L (46-116) H Troponin I Quantitative < 0.017 ng/mL (0.000-0.055) Total Protein 8.5 g/dL (6.4-8.2) H Albumin 4.5 g/dL (3.4-5.0) Albumin/Globulin Ratio 1.1 (1.0-1.7) Lipase 48 U/L (73-393) L Laboratory Tests 11/12/19 16:50 Laboratory Tests 11/12/19 16:50 Vital Signs: Vital Signs Date Time Temp Pulse Resp B/P (MAP) Pulse Ox O2 Delivery O2 Flow Rate FiO2 11/12/19 16:29 97.8 125 26 158/94 (115) 99 Room Air 97.8 EKG: EKG: [] EKG interpreted by nc sinus tachycardia with a rate of 116, right axis deviation, nonspecific ST changes Radiology/Procedures: Radiology/Procedures: [][facility] [address] [place] [address] IMAGING REPORT Signed PATIENT: CLEMENTE MALONEY ACCOUNT: [id number] : 1995 LOCATION: ER AGE: 23 SEX: M EXAM STATUS: REG ER ORD. PHYSICIAN: KAREEM GRESHAM MD REASON: CP, NAUSEA, VOMITING PROCEDURE: PORTABLE CHEST 1V EXAM: Chest, single view. HISTORY: Chest pain. Nausea and vomiting. COMPARISON: 02/18/2019 FINDINGS: A frontal view of the chest obtained. There is no infiltrate, pleural effusion or pneumothorax. The heart is normal in size. IMPRESSION: No acute pulmonary finding. Electronically signed by: Ilsa Cuevas MD (11/12/2019 5:06 PM) [facility] DICTATED and SIGNED BY: ILSA CUEVAS MD DATE: 11/12/191705 Course & Med Decision Making: Course & Med Decision Making Pertinent Labs and Imaging studies reviewed. (See chart for details) [] 23-year-old male presents with chest pain shortness of breath. Patient found to be in DKA. Patient will get 2 L of normal saline here in insulin infusion admission to the ICU. Chest pain and shortness of breath is most likely due to Kussmaul breathing and acidosis. On reassessment patient is unchanged. Critical care time was [35] minutes which includes time at bedside, spent in discussion of patient's care with specialist and/or family members, with interpretation of laboratory and/or radiological studies and is exclusive of procedures. Critical condition: DKA Critical interventions: IV fluids, insulin infusion, admission to the ICU Dragon Disclaimer: Dragon Disclaimer: This electronic medical record was generated, in whole or in part, using a voice recognition dictation system. Departure Departure Impression: Primary Impression: DKA (diabetic ketoacidoses) Additional Impression: Left-sided chest pain Disposition: ADMITTED INPATIENT Admitting Physician: SONIA roger) Condition: GUARDED Referrals: Edel RIGGS MD (PCP) Justicifation of Admission Dx: Justifications for Admission: Justification of Admission Dx: Yes DKA: DKA KAREEM GRESHAM MD Nov 12, 2019 17:28
[2019-11-12] MEDS ORDERED: INSULIN REGULAR VIAL 100 UNIT in IV NORMAL SALINE 100ML 100 ML IV PRN ×2 (17:30→18:30)
[2019-11-12 17:31] LABS: BASE EXCESS ABG -21 mmol/L (-3-3); HCO3 ABG 6 mmol/L (21-28); PO2 ABG 107 mmHg (85-108); SAT O2 ABG 97 % (92-99)
[2019-11-12 17:35] LABS: PCO2 ABG 18 mmHg (35-46)
[2019-11-12 17:36] LABS: FIO2 ABG RA
[2019-11-12] MEDS ORDERED: INSULIN,REGULAR 100 UNIT DRIP 100 ML IV ONE (17:45)
[2019-11-12] MEDS ORDERED: ONDANSETRON PF 4 MG/2 ML VIAL. IV PRN (17:45)
[2019-11-12 18:09] LABS: BILIRUBIN,URINE NEGATIVE (NEG); CLARITY,URINE CLEAR; COLOR,URINE YELLOW; NITRITE,URINE NEGATIVE (NEG); PROTEIN,URINE NEGATIVE (NEG-TRACE); UROBILINOGEN,URINE 0.2 mg/dL (0.2 mg/dL)
[2019-11-12 18:14] LABS: BACTERIA,URINE 0 /HPF (0-FEW); RBC,URINE 0 /HPF (0-2); SQUAMOUS EPITHELIAL CELL,UR OCC /LPF; WBC,URINE 0 /HPF (0-4)
[2019-11-12 18:16] LABS: BARBITURATES NEG (NEG); BENZODIAZEPINES NEG (NEG); CANNABINOIDS NEG (NEG); COCAINE POS (NEG); METHADONE NEG (NEG); OPIATES NEG (NEG); PHENCYCLIDINE NEG (NEG)
[2019-11-12 18:17] LABS: AMPHETAMINE/METHAMPHETAMINE NEG (NEG)
[2019-11-12] MEDS ORDERED: IV NORMAL SALINE 1000ML BAG 1,000 ML IV SCH ×2 (18:19→18:22)
[2019-11-12] MEDS ORDERED: IV 1/2 NORMAL SALINE 1,000 ML IV SCH ×2 (18:20→18:22)
[2019-11-12] MEDS ORDERED: IV DEXTROSE 5 %-0.45 % NACL 1,000 ML IV SCH (18:22)
[2019-11-12] MEDS ORDERED: POTASSIUM CHLORIDE 10MEQ 100 ML IV PRN ×3 (18:30)
[2019-11-12] MEDS ORDERED: ONDANSETRON PF 4 MG/2 ML VIAL. IVP PRN (18:30)
[2019-11-12] MEDS ORDERED: 0.9 % SODIUM CHLORIDE 10 ML DISP.SYRIN. IV PRN (18:30)
[2019-11-12] MEDS ORDERED: LACTULOSE 20 GM/30 ML SOLUTION. PO PRN (18:30)
[2019-11-12] MEDS ORDERED: ENOXAPARIN 40 MG/0.4 ML SYRINGE. SQ SCH (19:00)
[2019-11-12] MEDS ORDERED: PROCHLORPERAZINE 10 MG/2 ML VIAL. IV PRN (19:30)
[2019-11-12] MEDS: KETOROLAC 15 MG/ML VIAL. IVP PRN (20:00)
[2019-11-12] MEDS: SENNOSIDES/DOCUSATE 8.6/50MG TABLET. PO SCH (21:00)
[2019-11-12 21:08] LABS: CALCIUM 8.5 mg/dL (8.5-10.1); CREATININE 1.1 mg/dL (0.7-1.3); GFR 84.5; PHOSPHORUS 2.5 mg/dL (2.6-4.7); POTASSIUM 4.1 mmol/L (3.5-5.1)
--- NOTE | 2019-11-12 21:40 | PDOC1 ---
History and Physical Date of Admission Date of Admission 11/12/2019 Identification/Chief Complaint Chief Complaint My chest hurts Source Source: Chart review, Patient History of Present Illness History of Present Illness Patient is a 23-year-old gentleman with history of type 1 diabetes diagnosed at 14 years old who comes in today complaining of chest pain and back pain. Apparently the patient was admitted for DKA more or less a week ago. The patient has a very poor diet he denies any recent infections upper respiratory tract infections shortness of breath no nausea vomiting or diarrhea before the episode of today of chest discomfort and he unfortunately is not compliant with his insulin therapy. His diet is quite poor as well and he decided to come to the emergency department for his pain mostly. After evaluation in the emergency department he was found to be in DKA reason why we were called to admit the patient, the patient is mentating well neurologically he is intact his vital signs are intact mother is at bedside, the patient is quite verbally abusive to his mother who is just trying to help. Pain is described as a sharp pain 10 out of 10 intensity over the precordial area no radiation to the arm nor the jaw no associated dyspnea no paroxysmal nocturnal dyspnea no signs of instability is noted. Back pain did not have any alarming signs either leg saddle anesthesia or signs of cauda equina syndrome the patient did not complain of pain upon palpation during my physical exam no CVA tenderness either plan of care has been explained detail all concerns addressed to the best of my abilities Past Medical History Cardiovascular: HTN GI: No pertinent hx Heme/Onc: No pertinent hx Hepatobiliary: No pertinent hx Psych: Anxiety, Depression Rheumatologic: No pertinent hx Renal/: Acute renal failure Endocrine: Diabetes Past Surgical History Past Surgical History: No pertinent history Family History Family History: Depression, Diabetes Social History ALCOHOL: social Drugs: Cocaine, Marijuana Current Problem List Problem List Problems Medical Problems: (1) DKA (diabetic ketoacidoses) Status: Acute (2) Left-sided chest pain Status: Acute Current Medications Current Medications Current Medications Medications (Trade) Dose Ordered Sig/Nam Start Time Stop Time Status Last Admin Dose Admin Dextrose/Sodium Chloride 1,000 ml @ 250 mls/hr Q4H 11/12/19 18:22 11/12/19 18:46 DC Enoxaparin Sodium (Lovenox 40mg Syringe) 40 mg Q24H 11/12/19 19:00 Famotidine (Pepcid Vial) 20 mg BID 11/12/19 21:00 Info (Icu Electrolyte Protocol) 1 ea DAILY 11/13/19 09:00 Insulin Human Regular 100 ml @ 0 mls/hr 1X ONCE 11/12/19 17:45 11/12/19 17:46 DC Insulin Human Regular 100 unit/ Sodium Chloride 101 ml @ 0 mls/hr CONT PRN PRN 11/12/19 18:30 Ketorolac Tromethamine (Toradol 15mg Vial) 15 mg PRN Q6HRS PRN 11/12/19 19:30 11/17/19 19:29 11/12/19 20:00 15 MG Lactulose (Lactulose) 20 gm PRN Q12HR PRN 11/12/19 18:30 Lorazepam (Ativan Inj) 0.5 mg PRN Q6HRS PRN 11/12/19 18:30 Magnesium Sulfate 100 ml @ 25 mls/hr PRN DAILY PRN 11/13/19 09:00 Ondansetron HCl (Zofran) 4 mg PRN Q6HRS PRN 11/12/19 18:30 Potassium Chloride/Water 100 ml @ 100 mls/hr PRN Q1HR PRN 11/12/19 18:30 Prochlorperazine Edisylate (Compazine) 10 mg PRN Q6HRS PRN 11/12/19 19:30 Senna/Docusate Sodium (Senna Plus) 1 tab BID 11/12/19 21:00 Sodium Chloride 1,000 ml @ 250 mls/hr Q4H 11/12/19 18:22 11/12/19 18:46 DC Sodium Chloride (Normal Saline Flush) 3 ml QSHIFT PRN 11/12/19 18:30 Allergies Allergies Allergies Coded Allergies Type Severity Reaction Last Updated Verified Penicillins Allergy Intermediate 05/27/15 Yes amoxicillin Allergy Intermediate 05/27/15 Yes cefaclor Allergy Intermediate 05/04/16 Yes ROS Review of System CONSTITUTIONAL: No fever or chills EYES: No recent changes SKIN: No rash or itching CARDIOVASCULAR: No chest pain, syncope, palpitations, or edema RESPIRATORY: No SOB or cough GASTROINTESTINAL: No nausea, vomiting or abdominal pain NEUROLOGICAL: No headaches or weakness ENDOCRINE: No cold or heat intolerance GENITOURINARY: No urgency or frequency of urination MUSCULOSKELETAL: No back pain or joint pain LYMPHATICS: No enlarged lymph nodes PSYCHIATRIC: No anxiety or depression Physical Exam Physical Exam GEN.: No apparent distress. Alert and oriented. HEENT: Head is normocephalic, atraumatic NECK: Supple. LUNGS: Clear to auscultation. HEART: RRR, S1, S2 present. Peripheral pulses intact ABDOMEN: Soft, nontender. Positive bowel sounds. EXTREMITIES: Without any cyanosis. NEUROLOGIC: Normal speech, normal tone PSYCHIATRIC: Normal affect, normal mood. SKIN: No ulcerations Vitals Vitals Vital Signs Date Time Temp Pulse Resp B/P (MAP) Pulse Ox O2 Delivery O2 Flow Rate FiO2 11/12/19 17:30 97 Room Air 11/12/19 17:24 112 159/83 (108) 11/12/19 16:29 97.8 26 97.8 Labs Labs Laboratory Tests Test 11/12/19 16:50 11/12/19 16:55 11/12/19 18:00 11/12/19 19:17 White Blood Count 8.1 x10^3/uL (4.0-11.0) Red Blood Count 4.50 x10^6/uL (4.30-5.70) Hemoglobin 15.8 g/dL (13.0-17.5) Hematocrit 46.3 % (39.0-53.0) Mean Corpuscular Volume 103 fL (79-100) Mean Corpuscular Hemoglobin 35 pg (25-35) Mean Corpuscular Hemoglobin Concent 34 g/dL (31-37) Red Cell Distribution Width 12.9 % (11.5-14.5) Platelet Count 366 x10^3/uL (140-400) Neutrophils (%) (Auto) 52 % (31-73) Lymphocytes (%) (Auto) 37 % (24-48) Monocytes (%) (Auto) 10 % (0-9) Eosinophils (%) (Auto) 1 % (0-3) Basophils (%) (Auto) 1 % (0-3) Neutrophils # (Auto) 4.2 x10^3/uL (1.8-7.7) Lymphocytes # (Auto) 3.0 x10^3/uL (1.0-4.8) Monocytes # (Auto) 0.8 x10^3/uL (0.0-1.1) Eosinophils # (Auto) 0.0 x10^3/uL (0.0-0.7) Basophils # (Auto) 0.1 x10^3/uL (0.0-0.2) Sodium Level 131 mmol/L (136-145) Potassium Level 4.5 mmol/L (3.5-5.1) Chloride Level 90 mmol/L (98-107) Carbon Dioxide Level 11 mmol/L (21-32) Anion Gap 30 (6-14) Blood Urea Nitrogen 17 mg/dL (8-26) Creatinine 1.3 mg/dL (0.7-1.3) Estimated GFR (Cockcroft-Gault) 69.7 BUN/Creatinine Ratio 13 (6-20) Glucose Level 622 mg/dL (70-99) Calcium Level 10.0 mg/dL (8.5-10.1) Magnesium Level 2.0 mg/dL (1.8-2.4) Total Bilirubin 1.7 mg/dL (0.2-1.0) Direct Bilirubin 0.3 mg/dL (0.0-0.2) Aspartate Amino Transf (AST/SGOT) 18 U/L (15-37) Alanine Aminotransferase (ALT/SGPT) 21 U/L (16-63) Alkaline Phosphatase 129 U/L (46-116) Troponin I Quantitative < 0.017 ng/mL (0.000-0.055) Total Protein 8.5 g/dL (6.4-8.2) Albumin 4.5 g/dL (3.4-5.0) Albumin/Globulin Ratio 1.1 (1.0-1.7) Lipase 48 U/L (73-393) O2 Saturation 97 % (92-99) Arterial Blood pH 7.12 (7.35-7.45) Arterial Blood pCO2 at Patient Temp 18 mmHg (35-46) Arterial Blood pO2 at Patient Temp 107 mmHg (85-108) Arterial Blood HCO3 6 mmol/L (21-28) Arterial Blood Base Excess -21 mmol/L (-3-3) FiO2 Ra Urine Collection Type Unknown Urine Color Yellow Urine Clarity Clear Urine pH 5.0 (<5.0-8.0) Urine Specific [place] 1.025 (1.000-1.030) Urine Protein Negative mg/dL (NEG-TRACE) Urine Glucose (UA) >=1000 mg/dL (NEG) Urine Ketones (Stick) >=80 mg/dL (NEG) Urine Blood Negative (NEG) Urine Nitrite Negative (NEG) Urine Bilirubin Negative (NEG) Urine Urobilinogen Dipstick 0.2 mg/dL (0.2 mg/dL) Urine Leukocyte Esterase Negative (NEG) Urine RBC 0 /HPF (0-2) Urine WBC 0 /HPF (0-4) Urine Squamous Epithelial Cells Occ /LPF Urine Bacteria 0 /HPF (0-FEW) Urine Opiates Screen Neg (NEG) Urine Methadone Screen Neg (NEG) Urine Barbiturates Neg (NEG) Urine Phencyclidine Screen Neg (NEG) Urine Amphetamine/Methamphetamine Neg (NEG) Urine Benzodiazepines Screen Neg (NEG) Urine Cocaine Screen Pos (NEG) Urine Cannabinoids Screen Neg (NEG) Urine Ethyl Alcohol Neg (NEG) Glucose (Fingerstick) 367 mg/dL (70-99) Test 11/12/19 20:50 11/12/19 20:51 Sodium Level 136 mmol/L (136-145) Potassium Level 4.1 mmol/L (3.5-5.1) Chloride Level 100 mmol/L (98-107) Carbon Dioxide Level 14 mmol/L (21-32) Anion Gap 22 (6-14) Blood Urea Nitrogen 16 mg/dL (8-26) Creatinine 1.1 mg/dL (0.7-1.3) Estimated GFR (Cockcroft-Gault) 84.5 Glucose Level 212 mg/dL (70-99) Calcium Level 8.5 mg/dL (8.5-10.1) Phosphorus Level 2.5 mg/dL (2.6-4.7) Magnesium Level 1.8 mg/dL (1.8-2.4) Glucose (Fingerstick) 224 mg/dL (70-99) Laboratory Tests Test 11/12/19 16:50 11/12/19 16:55 11/12/19 18:00 11/12/19 19:17 White Blood Count 8.1 x10^3/uL (4.0-11.0) Red Blood Count 4.50 x10^6/uL (4.30-5.70) Hemoglobin 15.8 g/dL (13.0-17.5) Hematocrit 46.3 % (39.0-53.0) Mean Corpuscular Volume 103 fL (79-100) Mean Corpuscular Hemoglobin 35 pg (25-35) Mean Corpuscular Hemoglobin Concent 34 g/dL (31-37) Red Cell Distribution Width 12.9 % (11.5-14.5) Platelet Count 366 x10^3/uL (140-400) Neutrophils (%) (Auto) 52 % (31-73) Lymphocytes (%) (Auto) 37 % (24-48) Monocytes (%) (Auto) 10 % (0-9) Eosinophils (%) (Auto) 1 % (0-3) Basophils (%) (Auto) 1 % (0-3) Neutrophils # (Auto) 4.2 x10^3/uL (1.8-7.7) Lymphocytes # (Auto) 3.0 x10^3/uL (1.0-4.8) Monocytes # (Auto) 0.8 x10^3/uL (0.0-1.1) Eosinophils # (Auto) 0.0 x10^3/uL (0.0-0.7) Basophils # (Auto) 0.1 x10^3/uL (0.0-0.2) Sodium Level 131 mmol/L (136-145) Potassium Level 4.5 mmol/L (3.5-5.1) Chloride Level 90 mmol/L (98-107) Carbon Dioxide Level 11 mmol/L (21-32) Anion Gap 30 (6-14) Blood Urea Nitrogen 17 mg/dL (8-26) Creatinine 1.3 mg/dL (0.7-1.3) Estimated GFR (Cockcroft-Gault) 69.7 BUN/Creatinine Ratio 13 (6-20) Glucose Level 622 mg/dL (70-99) Calcium Level 10.0 mg/dL (8.5-10.1) Magnesium Level 2.0 mg/dL (1.8-2.4) Total Bilirubin 1.7 mg/dL (0.2-1.0) Direct Bilirubin 0.3 mg/dL (0.0-0.2) Aspartate Amino Transf (AST/SGOT) 18 U/L (15-37) Alanine Aminotransferase (ALT/SGPT) 21 U/L (16-63) Alkaline Phosphatase 129 U/L (46-116) Troponin I Quantitative < 0.017 ng/mL (0.000-0.055) Total Protein 8.5 g/dL (6.4-8.2) Albumin 4.5 g/dL (3.4-5.0) Albumin/Globulin Ratio 1.1 (1.0-1.7) Lipase 48 U/L (73-393) O2 Saturation 97 % (92-99) Arterial Blood pH 7.12 (7.35-7.45) Arterial Blood pCO2 at Patient Temp 18 mmHg (35-46) Arterial Blood pO2 at Patient Temp 107 mmHg (85-108) Arterial Blood HCO3 6 mmol/L (21-28) Arterial Blood Base Excess -21 mmol/L (-3-3) FiO2 Ra Urine Collection Type Unknown Urine Color Yellow Urine Clarity Clear Urine pH 5.0 (<5.0-8.0) Urine Specific [place] 1.025 (1.000-1.030) Urine Protein Negative mg/dL (NEG-TRACE) Urine Glucose (UA) >=1000 mg/dL (NEG) Urine Ketones (Stick) >=80 mg/dL (NEG) Urine Blood Negative (NEG) Urine Nitrite Negative (NEG) Urine Bilirubin Negative (NEG) Urine Urobilinogen Dipstick 0.2 mg/dL (0.2 mg/dL) Urine Leukocyte Esterase Negative (NEG) Urine RBC 0 /HPF (0-2) Urine WBC 0 /HPF (0-4) Urine Squamous Epithelial Cells Occ /LPF Urine Bacteria 0 /HPF (0-FEW) Urine Opiates Screen Neg (NEG) Urine Methadone Screen Neg (NEG) Urine Barbiturates Neg (NEG) Urine Phencyclidine Screen Neg (NEG) Urine Amphetamine/Methamphetamine Neg (NEG) Urine Benzodiazepines Screen Neg (NEG) Urine Cocaine Screen Pos (NEG) Urine Cannabinoids Screen Neg (NEG) Urine Ethyl Alcohol Neg (NEG) Glucose (Fingerstick) 367 mg/dL (70-99) Test 11/12/19 20:50 11/12/19 20:51 Sodium Level 136 mmol/L (136-145) Potassium Level 4.1 mmol/L (3.5-5.1) Chloride Level 100 mmol/L (98-107) Carbon Dioxide Level 14 mmol/L (21-32) Anion Gap 22 (6-14) Blood Urea Nitrogen 16 mg/dL (8-26) Creatinine 1.1 mg/dL (0.7-1.3) Estimated GFR (Cockcroft-Gault) 84.5 Glucose Level 212 mg/dL (70-99) Calcium Level 8.5 mg/dL (8.5-10.1) Phosphorus Level 2.5 mg/dL (2.6-4.7) Magnesium Level 1.8 mg/dL (1.8-2.4) Glucose (Fingerstick) 224 mg/dL (70-99) VTE Prophylaxis Ordered VTE Prophylaxis Devices: No VTE Pharmacological Prophylaxi: Yes Assessment/Plan Assessment/Plan Diabetic ketoacidosis Microcytosis Pseudohyponatremia Anion gap metabolic acidosis secondary to DKA Plan Admit to the intensive care unit Follow labs serially Fluid resuscitation Replace electrolytes as need be DVT prophylaxis with Lovenox Further recommendations based on the clinical course FLAKO MARQUES MD Nov 12, 2019 21:40
[2019-11-12] MEDS: FAMOTIDINE 20 MG/2 ML VIAL IVP SCH (21:52)
[2019-11-12] MEDS: IV DEXTROSE 5% - 0.9 % NACL 1,000 ML IV SCH (22:07)
[2019-11-12] MEDS: POTASSIUM CHLORIDE 10MEQ 100 ML IV SCH ×2 (22:57→23:50)
[2019-11-12] MEDS: IV NORMAL SALINE 1000ML BAG 1,000 ML IV SCH (23:57)
[2019-11-13] VITALS (10 sets, daily range): BP systolic 95–137; BP diastolic 47–66
[2019-11-13 01:26] LABS: CALCIUM 8.3 mg/dL (8.5-10.1); GFR 94.3
[2019-11-13] MEDS: KETOROLAC 15 MG/ML VIAL. IVP PRN ×2 (02:21→08:33)
[2019-11-13] MEDS: IV DEXTROSE 5% - 0.9 % NACL 1,000 ML IV SCH ×2 (02:21→06:15)
[2019-11-13] MEDS: POTASSIUM CHLORIDE 10MEQ 100 ML IV SCH ×2 (03:19→04:28)
[2019-11-13] MEDS: IV NORMAL SALINE 1000ML BAG 1,000 ML IV SCH (04:00)
[2019-11-13 05:31] LABS: HEMATOCRIT 34.4 % (39.0-53.0); RED BLOOD COUNT 3.49 x10^6/uL (4.30-5.70); RED CELL DISTRIBUTION WIDTH 12.1 % (11.5-14.5)
[2019-11-13 05:47] LABS: CALCIUM 7.7 mg/dL (8.5-10.1); CREATININE 0.8 mg/dL (0.7-1.3); POTASSIUM 4.1 mmol/L (3.5-5.1)
[2019-11-13 05:51] LABS: MAGNESIUM 1.8 mg/dL (1.8-2.4); PHOSPHORUS 2.9 mg/dL (2.6-4.7)
[2019-11-13] MEDS ORDERED: DEXTROSE 50% 25 GM / 50ML DISP.SYRIN. IV PRN (06:15)
[2019-11-13] MEDS ORDERED: INSULIN GLARGINE SYRINGE. SQ SCH (06:30)
--- NOTE | 2019-11-13 07:46 | EKG ---
[facility] [address] [place] [address] Test Date: 2019-11-12 Test Time: 17:33:14 Pat Name: CLEMENTE MALONEY Department: Room: Gender: M [employer]: : 1995 Requested By: KAREEM GRESHAM Order Number: [id number] Reading MD: Measurements Intervals [place] Rate: 116 P: 72 NM: 174 QRS: 106 QRSD: 94 T: 21 QT: 310 QTc: 437 Interpretive Statements SINUS TACHYCARDIA LEFT ATRIAL ABNORMALITY RIGHTWARD AXIS ABNORMAL ECG RI6.02 No previous ECG available for comparison
[2019-11-13] MEDS ORDERED: INSULIN LISPRO 300 UNITS/3 ML VIAL. SQ SCH ×2 (08:00)
[2019-11-13] MEDS: FAMOTIDINE 20 MG/2 ML VIAL IVP SCH (08:11)
[2019-11-13] MEDS: SENNOSIDES/DOCUSATE 8.6/50MG TABLET. PO SCH (08:15)
--- NOTE | 2019-11-13 08:45 | PDOC3 ---
Discharge Summary Visit Information Date of Admission: Nov 12, 2019 Date of Discharge: Nov 13, 2019 Admitting Diagnosis Comment: DKA Final Diagnosis Problems Medical Problems: (1) DKA (diabetic ketoacidoses) Status: Acute (2) Left-sided chest pain Status: Acute Diabetic ketoacidosis Microcytosis Pseudohyponatremia Anion gap metabolic acidosis secondary to DKA Brief Hospital Course Allergies Allergies Coded Allergies Type Severity Reaction Last Updated Verified Penicillins Allergy Intermediate 05/27/15 Yes amoxicillin Allergy Intermediate 05/27/15 Yes cefaclor Allergy Intermediate 05/04/16 Yes Vital Signs Vital Signs Date Time Temp Pulse Resp B/P (MAP) Pulse Ox O2 Delivery O2 Flow Rate FiO2 11/13/19 08:00 99.0 75 18 110/63 (79) 99 Room Air 99.0 Lab Results Laboratory Tests Test 11/12/19 16:50 11/12/19 16:55 11/12/19 18:00 11/12/19 19:17 White Blood Count 8.1 x10^3/uL (4.0-11.0) Red Blood Count 4.50 x10^6/uL (4.30-5.70) Hemoglobin 15.8 g/dL (13.0-17.5) Hematocrit 46.3 % (39.0-53.0) Mean Corpuscular Volume 103 fL (79-100) Mean Corpuscular Hemoglobin 35 pg (25-35) Mean Corpuscular Hemoglobin Concent 34 g/dL (31-37) Red Cell Distribution Width 12.9 % (11.5-14.5) Platelet Count 366 x10^3/uL (140-400) Neutrophils (%) (Auto) 52 % (31-73) Lymphocytes (%) (Auto) 37 % (24-48) Monocytes (%) (Auto) 10 % (0-9) Eosinophils (%) (Auto) 1 % (0-3) Basophils (%) (Auto) 1 % (0-3) Neutrophils # (Auto) 4.2 x10^3/uL (1.8-7.7) Lymphocytes # (Auto) 3.0 x10^3/uL (1.0-4.8) Monocytes # (Auto) 0.8 x10^3/uL (0.0-1.1) Eosinophils # (Auto) 0.0 x10^3/uL (0.0-0.7) Basophils # (Auto) 0.1 x10^3/uL (0.0-0.2) Sodium Level 131 mmol/L (136-145) Potassium Level 4.5 mmol/L (3.5-5.1) Chloride Level 90 mmol/L (98-107) Carbon Dioxide Level 11 mmol/L (21-32) Anion Gap 30 (6-14) Blood Urea Nitrogen 17 mg/dL (8-26) Creatinine 1.3 mg/dL (0.7-1.3) Estimated GFR (Cockcroft-Gault) 69.7 BUN/Creatinine Ratio 13 (6-20) Glucose Level 622 mg/dL (70-99) Calcium Level 10.0 mg/dL (8.5-10.1) Magnesium Level 2.0 mg/dL (1.8-2.4) Total Bilirubin 1.7 mg/dL (0.2-1.0) Direct Bilirubin 0.3 mg/dL (0.0-0.2) Aspartate Amino Transf (AST/SGOT) 18 U/L (15-37) Alanine Aminotransferase (ALT/SGPT) 21 U/L (16-63) Alkaline Phosphatase 129 U/L (46-116) Troponin I Quantitative < 0.017 ng/mL (0.000-0.055) Total Protein 8.5 g/dL (6.4-8.2) Albumin 4.5 g/dL (3.4-5.0) Albumin/Globulin Ratio 1.1 (1.0-1.7) Lipase 48 U/L (73-393) O2 Saturation 97 % (92-99) Arterial Blood pH 7.12 (7.35-7.45) Arterial Blood pCO2 at Patient Temp 18 mmHg (35-46) Arterial Blood pO2 at Patient Temp 107 mmHg (85-108) Arterial Blood HCO3 6 mmol/L (21-28) Arterial Blood Base Excess -21 mmol/L (-3-3) FiO2 Ra Urine Collection Type Unknown Urine Color Yellow Urine Clarity Clear Urine pH 5.0 (<5.0-8.0) Urine Specific [place] 1.025 (1.000-1.030) Urine Protein Negative mg/dL (NEG-TRACE) Urine Glucose (UA) >=1000 mg/dL (NEG) Urine Ketones (Stick) >=80 mg/dL (NEG) Urine Blood Negative (NEG) Urine Nitrite Negative (NEG) Urine Bilirubin Negative (NEG) Urine Urobilinogen Dipstick 0.2 mg/dL (0.2 mg/dL) Urine Leukocyte Esterase Negative (NEG) Urine RBC 0 /HPF (0-2) Urine WBC 0 /HPF (0-4) Urine Squamous Epithelial Cells Occ /LPF Urine Bacteria 0 /HPF (0-FEW) Urine Opiates Screen Neg (NEG) Urine Methadone Screen Neg (NEG) Urine Barbiturates Neg (NEG) Urine Phencyclidine Screen Neg (NEG) Urine Amphetamine/Methamphetamine Neg (NEG) Urine Benzodiazepines Screen Neg (NEG) Urine Cocaine Screen Pos (NEG) Urine Cannabinoids Screen Neg (NEG) Urine Ethyl Alcohol Neg (NEG) Glucose (Fingerstick) 367 mg/dL (70-99) Test 11/12/19 20:50 11/12/19 20:51 11/12/19 21:55 11/12/19 22:58 Sodium Level 136 mmol/L (136-145) Potassium Level 4.1 mmol/L (3.5-5.1) Chloride Level 100 mmol/L (98-107) Carbon Dioxide Level 14 mmol/L (21-32) Anion Gap 22 (6-14) Blood Urea Nitrogen 16 mg/dL (8-26) Creatinine 1.1 mg/dL (0.7-1.3) Estimated GFR (Cockcroft-Gault) 84.5 Glucose Level 212 mg/dL (70-99) Calcium Level 8.5 mg/dL (8.5-10.1) Phosphorus Level 2.5 mg/dL (2.6-4.7) Magnesium Level 1.8 mg/dL (1.8-2.4) Glucose (Fingerstick) 224 mg/dL (70-99) 172 mg/dL (70-99) 295 mg/dL (70-99) Test 11/12/19 23:52 11/13/19 01:01 11/13/19 01:05 11/13/19 02:24 Glucose (Fingerstick) 309 mg/dL (70-99) 161 mg/dL (70-99) 138 mg/dL (70-99) Sodium Level 136 mmol/L (136-145) Potassium Level 4.0 mmol/L (3.5-5.1) Chloride Level 103 mmol/L (98-107) Carbon Dioxide Level 21 mmol/L (21-32) Anion Gap 12 (6-14) Blood Urea Nitrogen 12 mg/dL (8-26) Creatinine 1.0 mg/dL (0.7-1.3) Estimated GFR (Cockcroft-Gault) 94.3 Glucose Level 152 mg/dL (70-99) Calcium Level 8.3 mg/dL (8.5-10.1) Test 11/13/19 03:20 11/13/19 04:26 11/13/19 05:10 11/13/19 05:20 Glucose (Fingerstick) 104 mg/dL (70-99) 106 mg/dL (70-99) 106 mg/dL (70-99) White Blood Count 11.0 x10^3/uL (4.0-11.0) Red Blood Count 3.49 x10^6/uL (4.30-5.70) Hemoglobin 12.0 g/dL (13.0-17.5) Hematocrit 34.4 % (39.0-53.0) Mean Corpuscular Volume 99 fL (79-100) Mean Corpuscular Hemoglobin 34 pg (25-35) Mean Corpuscular Hemoglobin Concent 35 g/dL (31-37) Red Cell Distribution Width 12.1 % (11.5-14.5) Platelet Count 264 x10^3/uL (140-400) Sodium Level 139 mmol/L (136-145) Potassium Level 4.1 mmol/L (3.5-5.1) Chloride Level 108 mmol/L (98-107) Carbon Dioxide Level 20 mmol/L (21-32) Anion Gap 11 (6-14) Blood Urea Nitrogen 9 mg/dL (8-26) Creatinine 0.8 mg/dL (0.7-1.3) Estimated GFR (Cockcroft-Gault) 122.0 Glucose Level 105 mg/dL (70-99) Calcium Level 7.7 mg/dL (8.5-10.1) Phosphorus Level 2.9 mg/dL (2.6-4.7) Magnesium Level 1.8 mg/dL (1.8-2.4) Test 11/13/19 06:35 11/13/19 07:45 Glucose (Fingerstick) 100 mg/dL (70-99) 139 mg/dL (70-99) Laboratory Tests Test 11/12/19 16:50 11/12/19 16:55 11/12/19 18:00 11/12/19 19:17 White Blood Count 8.1 x10^3/uL (4.0-11.0) Red Blood Count 4.50 x10^6/uL (4.30-5.70) Hemoglobin 15.8 g/dL (13.0-17.5) Hematocrit 46.3 % (39.0-53.0) Mean Corpuscular Volume 103 fL (79-100) Mean Corpuscular Hemoglobin 35 pg (25-35) Mean Corpuscular Hemoglobin Concent 34 g/dL (31-37) Red Cell Distribution Width 12.9 % (11.5-14.5) Platelet Count 366 x10^3/uL (140-400) Neutrophils (%) (Auto) 52 % (31-73) Lymphocytes (%) (Auto) 37 % (24-48) Monocytes (%) (Auto) 10 % (0-9) Eosinophils (%) (Auto) 1 % (0-3) Basophils (%) (Auto) 1 % (0-3) Neutrophils # (Auto) 4.2 x10^3/uL (1.8-7.7) Lymphocytes # (Auto) 3.0 x10^3/uL (1.0-4.8) Monocytes # (Auto) 0.8 x10^3/uL (0.0-1.1) Eosinophils # (Auto) 0.0 x10^3/uL (0.0-0.7) Basophils # (Auto) 0.1 x10^3/uL (0.0-0.2) Sodium Level 131 mmol/L (136-145) Potassium Level 4.5 mmol/L (3.5-5.1) Chloride Level 90 mmol/L (98-107) Carbon Dioxide Level 11 mmol/L (21-32) Anion Gap 30 (6-14) Blood Urea Nitrogen 17 mg/dL (8-26) Creatinine 1.3 mg/dL (0.7-1.3) Estimated GFR (Cockcroft-Gault) 69.7 BUN/Creatinine Ratio 13 (6-20) Glucose Level 622 mg/dL (70-99) Calcium Level 10.0 mg/dL (8.5-10.1) Magnesium Level 2.0 mg/dL (1.8-2.4) Total Bilirubin 1.7 mg/dL (0.2-1.0) Direct Bilirubin 0.3 mg/dL (0.0-0.2) Aspartate Amino Transf (AST/SGOT) 18 U/L (15-37) Alanine Aminotransferase (ALT/SGPT) 21 U/L (16-63) Alkaline Phosphatase 129 U/L (46-116) Troponin I Quantitative < 0.017 ng/mL (0.000-0.055) Total Protein 8.5 g/dL (6.4-8.2) Albumin 4.5 g/dL (3.4-5.0) Albumin/Globulin Ratio 1.1 (1.0-1.7) Lipase 48 U/L (73-393) O2 Saturation 97 % (92-99) Arterial Blood pH 7.12 (7.35-7.45) Arterial Blood pCO2 at Patient Temp 18 mmHg (35-46) Arterial Blood pO2 at Patient Temp 107 mmHg (85-108) Arterial Blood HCO3 6 mmol/L (21-28) Arterial Blood Base Excess -21 mmol/L (-3-3) FiO2 Ra Urine Collection Type Unknown Urine Color Yellow Urine Clarity Clear Urine pH 5.0 (<5.0-8.0) Urine Specific [place] 1.025 (1.000-1.030) Urine Protein Negative mg/dL (NEG-TRACE) Urine Glucose (UA) >=1000 mg/dL (NEG) Urine Ketones (Stick) >=80 mg/dL (NEG) Urine Blood Negative (NEG) Urine Nitrite Negative (NEG) Urine Bilirubin Negative (NEG) Urine Urobilinogen Dipstick 0.2 mg/dL (0.2 mg/dL) Urine Leukocyte Esterase Negative (NEG) Urine RBC 0 /HPF (0-2) Urine WBC 0 /HPF (0-4) Urine Squamous Epithelial Cells Occ /LPF Urine Bacteria 0 /HPF (0-FEW) Urine Opiates Screen Neg (NEG) Urine Methadone Screen Neg (NEG) Urine Barbiturates Neg (NEG) Urine Phencyclidine Screen Neg (NEG) Urine Amphetamine/Methamphetamine Neg (NEG) Urine Benzodiazepines Screen Neg (NEG) Urine Cocaine Screen Pos (NEG) Urine Cannabinoids Screen Neg (NEG) Urine Ethyl Alcohol Neg (NEG) Glucose (Fingerstick) 367 mg/dL (70-99) Test 11/12/19 20:50 11/12/19 20:51 11/12/19 21:55 11/12/19 22:58 Sodium Level 136 mmol/L (136-145) Potassium Level 4.1 mmol/L (3.5-5.1) Chloride Level 100 mmol/L (98-107) Carbon Dioxide Level 14 mmol/L (21-32) Anion Gap 22 (6-14) Blood Urea Nitrogen 16 mg/dL (8-26) Creatinine 1.1 mg/dL (0.7-1.3) Estimated GFR (Cockcroft-Gault) 84.5 Glucose Level 212 mg/dL (70-99) Calcium Level 8.5 mg/dL (8.5-10.1) Phosphorus Level 2.5 mg/dL (2.6-4.7) Magnesium Level 1.8 mg/dL (1.8-2.4) Glucose (Fingerstick) 224 mg/dL (70-99) 172 mg/dL (70-99) 295 mg/dL (70-99) Test 11/12/19 23:52 11/13/19 01:01 11/13/19 01:05 11/13/19 02:24 Glucose (Fingerstick) 309 mg/dL (70-99) 161 mg/dL (70-99) 138 mg/dL (70-99) Sodium Level 136 mmol/L (136-145) Potassium Level 4.0 mmol/L (3.5-5.1) Chloride Level 103 mmol/L (98-107) Carbon Dioxide Level 21 mmol/L (21-32) Anion Gap 12 (6-14) Blood Urea Nitrogen 12 mg/dL (8-26) Creatinine 1.0 mg/dL (0.7-1.3) Estimated GFR (Cockcroft-Gault) 94.3 Glucose Level 152 mg/dL (70-99) Calcium Level 8.3 mg/dL (8.5-10.1) Test 11/13/19 03:20 11/13/19 04:26 11/13/19 05:10 11/13/19 05:20 Glucose (Fingerstick) 104 mg/dL (70-99) 106 mg/dL (70-99) 106 mg/dL (70-99) White Blood Count 11.0 x10^3/uL (4.0-11.0) Red Blood Count 3.49 x10^6/uL (4.30-5.70) Hemoglobin 12.0 g/dL (13.0-17.5) Hematocrit 34.4 % (39.0-53.0) Mean Corpuscular Volume 99 fL (79-100) Mean Corpuscular Hemoglobin 34 pg (25-35) Mean Corpuscular Hemoglobin Concent 35 g/dL (31-37) Red Cell Distribution Width 12.1 % (11.5-14.5) Platelet Count 264 x10^3/uL (140-400) Sodium Level 139 mmol/L (136-145) Potassium Level 4.1 mmol/L (3.5-5.1) Chloride Level 108 mmol/L (98-107) Carbon Dioxide Level 20 mmol/L (21-32) Anion Gap 11 (6-14) Blood Urea Nitrogen 9 mg/dL (8-26) Creatinine 0.8 mg/dL (0.7-1.3) Estimated GFR (Cockcroft-Gault) 122.0 Glucose Level 105 mg/dL (70-99) Calcium Level 7.7 mg/dL (8.5-10.1) Phosphorus Level 2.9 mg/dL (2.6-4.7) Magnesium Level 1.8 mg/dL (1.8-2.4) Test 11/13/19 06:35 11/13/19 07:45 Glucose (Fingerstick) 100 mg/dL (70-99) 139 mg/dL (70-99) Brief Hospital Course History of Present Illness Patient is a 23-year-old gentleman with history of type 1 diabetes diagnosed at 14 years old who comes in today complaining of chest pain and back pain. Apparently the patient was admitted for DKA more or less a week ago. The patient has a very poor diet he denies any recent infections upper respiratory tract infections shortness of breath no nausea vomiting or diarrhea before the episode of today of chest discomfort and he unfortunately is not compliant with his insulin therapy. His diet is quite poor as well and he decided to come to the emergency department for his pain mostly. After evaluation in the emergency department he was found to be in DKA reason why we were called to admit the patient, the patient is mentating well neurologically he is intact his vital signs are intact mother is at bedside, the patient is quite verbally abusive to his mother who is just trying to help. Pain is described as a sharp pain 10 out of 10 intensity over the precordial area no radiation to the arm nor the jaw no associated dyspnea no paroxysmal nocturnal dyspnea no signs of instability is noted. Back pain did not have any alarming signs either leg saddle anesthesia or signs of cauda equina syndrome the patient did not complain of pain upon palpation during my physical exam no CVA tenderness either plan of care has been explained detail all concerns addressed to the best of my abilities Patient had a very uneventful hospital stay. Patient recovered from his DKA and was eating breakfast this morning, his gap closed throughout the night and he is in good spirits to be going home. Extensive counseling regarding the noxious effects of alcohol and drugs was given to the patient prior to discharge she acknowledged understanding and hopefully this time around he is certainly takes it too hard and has a change of lifestyle. Reassurance has been provided all of his concerns were addressed to the best of my abilities Assessment Assessment Gen.: well-developed well-nourished in no apparent distress Head: Normal shape atraumatic Eyes: Pupils equal reactive to light and accommodation, normal conjunctivae and lids Ears: Normal shape Nose: Normal shape no trauma Mouth: No exudates of the back of throat no thrush no lesions Neck: Supple no JVD no carotid bruit or lymphadenopathy no thyromegaly Chest: Lungs clear to auscultation with good inspiratory effort no crackles rales or rhonchi Cardiovascular: S1-S2 regular rhythm no murmurs gallops or rubs Abdomen: Bowel sounds present soft nontender no hepatosplenomegaly appreciated s ign Extremities: No clubbing no cyanosis no edema peripheral pulses palpated bilaterally Neurological: Alert awake oriented in person time place and situation, cranial nerves II through XII intact, no motor or sensory deficits appreciated Psych: Appropriate mood, cooperative Discharge Information Condition at Discharge: Improved Follow Up: Weeks Disposition/Orders: D/C to Home Scheduled Insulin Aspart (Novolog Flexpen) 100 Unit/1 Ml Insuln.pen, 18 UNITS SQ QIDACHS for dm1 for 30 Days, #5 Prescribed by: RICKEY BROWN MD on 02/19/19 1521 Insulin Glargine,Hum.rec.anlog (Basaglar Kwikpen U-100) 100 Unit/1 Ml Insuln .pen, 32 UNITS SQ HS for DM1 for 30 Days, #3 Prescribed by: RICKEY BROWN MD on 02/19/19 1521 Scheduled PRN Albuterol Sulfate (Proair Hfa) 8.5 Gm Hfa.aer.ad, 8.5 GM IH TID PRN for COUGH for 30 Days, #1 Prescribed by: KAYLEY COLLINS on 11/28/17 1038 Justicifation of Admission Dx: Justifications for Admission: Justification of Admission Dx: Yes DKA: FLAKO BAUTISTA MD Nov 13, 2019 08:45
[2019-11-13] MEDS ORDERED: MAGNESIUM SULFATE 4GM 100 ML IV PRN (09:00)
[2019-11-13] MEDS ORDERED: ELECTROLYTE (ICU) PROTOCOL. MC SCH (09:00)
[2019-11-14 07:16] LABS: HEMOGLOBIN A1C 10.7 % (4.8-5.6)
== END 2019-11-13 10:21 | disposition home or self-care (01) | DRG 391 ==
LOC: ER 16:14 → 1 WEST ICU 17:38
PROVIDERS: ADMIT Internal Medicine; ATTEND Internal Medicine
DX: K21.9 Gastro-esophageal reflux disease without esophagitis (principal); E10.10 Type 1 diabetes mellitus with ketoacidosis without coma; I10 Essential (primary) hypertension; R07.89 Other chest pain; Z79.4 Long term (current) use of insulin; F32.9 Major depressive disorder, single episode, unspecified; F41.9 Anxiety disorder, unspecified; Z81.8 Family history of other mental and behavioral disorders; Z83.3 Family history of diabetes mellitus; Z87.891 Personal history of nicotine dependence; Z79.899 Other long term (current) drug therapy; Z88.0 Allergy status to penicillin; Z88.8 Allergy status to other drugs, medicaments and biological substances; R71.8 Other abnormality of red blood cells
CPT/HCPCS: 36415; 36600; 71045; 80048; 80053; 80307; 81001; 82248; 82805; 82962; 83036; 83690; 83735; 84100; 84484; 85025; 85027; 93005; 96361; 96365; 96375; 99291; J1815; J1885; J2405; J3480; J3490; J7030; J7042; G0378

== ENCOUNTER 2020-03-28 09:02 | Inpatient (IN) | payer OTHER ==
[~2020-03-28] VITALS: Ht 175.3 cm; Wt 59.0 kg
[2020-03-28] VITALS (7 sets, daily range): BP systolic 134–142; BP diastolic 71–85
[~2020-03-28 09:02] MED LIST changes: -LISI-338 PO; +LISI-517 PO
[2020-03-28] MEDS ORDERED: IV NORMAL SALINE 1000ML BAG 1,000 ML IV SCH ×3 (09:30→12:00)
--- NOTE | 2020-03-28 09:35 | ED.ADGEN ---
Past Medical History Past Medical History: Diabetes-Type I Past Surgical History: Other Additional Past Surgical Histo: right foot Smoking Status: Current Some Day Smoker Alcohol Use: Heavy Drug Use: Cocaine, Marijuana General Adult EDM: Chief Complaint: HYPERGLYCEMIA HPI: HPI: Patient is a 24 year old male who arrives ambulatory to the emergency department complaining of elevated blood sugar as well as back pain with nausea and vomiting. Patient reports he is an insulin-dependent diabetic and has not checked his blood sugar quite some time. He is fearful that he may be in diabetic ketoacidosis. The patient reports he began vomiting yesterday evening and has had episodes intermittently since that time. He states as well that his low back has been hurting since this occurred as well. He denies however any known sick contacts. Additionally he denies any history of fevers shortness of air or chest pain. It is worth noting the patient does use cocaine recrea tionally. He is awake, alert and uncomfortable appearing. Review of Systems: Review of Systems: Constitutional: Denies fever or chills. [] Eyes: Denies change in visual acuity. [] HENT: Denies nasal congestion or sore throat. [] Respiratory: Denies cough or shortness of breath. [] Cardiovascular: Denies chest pain or edema. [] GI: Reports nausea with vomiting. Denies abdominal pain, bloody stools or diarrhea. [] : Denies dysuria. [] Musculoskeletal: back pain or joint pain. [] Integument: Denies rash. [] Neurologic: Denies headache, focal weakness or sensory changes. [] Endocrine: Denies polyuria or polydipsia. [] Lymphatic: Denies swollen glands. [] Psychiatric: Denies depression or anxiety. [] Family History: Family History: Noncontributory Current Medications: Current Medications Medications (Trade) Dose Ordered Sig/Nam Start Time Stop Time Status Last Admin Dose Admin Insulin Human Regular 100 ml @ 4 mls/hr 1X ONCE 03/28/20 10:30 03/29/20 11:29 Insulin Human Regular 100 unit/ Sodium Chloride 101 ml @ 4.04 mls/hr 1X STAT 03/28/20 10:18 03/29/20 11:17 UNV Morphine Sulfate (Morphine Sulfate) 4 mg 1X ONCE 03/28/20 09:45 03/28/20 09:46 DC 03/28/20 09:40 4 MG Ondansetron HCl (Zofran) 4 mg 1X ONCE 03/28/20 09:45 03/28/20 09:46 DC 03/28/20 09:40 4 MG Sodium Chloride 1,000 ml @ 1,000 mls/hr 1X ONCE 03/28/20 09:45 03/28/20 10:44 Allergies: Allergies: Allergies Coded Allergies Type Severity Reaction Last Updated Verified Penicillins Allergy Intermediate 05/27/15 Yes amoxicillin Allergy Intermediate 05/27/15 Yes cefaclor Allergy Intermediate 05/04/16 Yes Physical Exam: PE: Constitutional: Uncomfortable appearing and tearful. Well developed, well nourished, non-toxic appearance. [] HENT: Normocephalic, atraumatic, bilateral external ears normal, oropharynx moist, no oral exudates, nose normal. [] Eyes: PERRLA, EOMI, conjunctiva normal, no discharge. [] Neck: Normal range of motion, no tenderness, supple, no stridor. [] Cardiovascular: Tachycardia. no murmur [] Lungs & Thorax: Bilateral breath sounds clear to auscultation [] Abdomen: Bowel sounds normal, soft, no tenderness, no masses, no pulsatile masses. [] Skin: Warm, dry, no erythema, no rash. [] Back: Minimal tenderness of the paraspinal musculature in the lumbar region. no CVA tenderness. [] Extremities: No tenderness, no cyanosis, no clubbing, ROM intact, no edema. [] Neurologic: Alert and oriented X 3, normal motor function, normal sensory function, no focal deficits noted. [] Psychologic: Affect normal, judgement normal, mood normal. [] Current Patient Data: Labs: Laboratory Tests Test 03/28/20 09:30 White Blood Count 9.9 x10^3/uL (4.0-11.0) Red Blood Count 4.37 x10^6/uL (4.30-5.70) Hemoglobin 14.4 g/dL (13.0-17.5) Hematocrit 42.2 % (39.0-53.0) Mean Corpuscular Volume 97 fL (79-100) Mean Corpuscular Hemoglobin 33 pg (25-35) Mean Corpuscular Hemoglobin Concent 34 g/dL (31-37) Red Cell Distribution Width 12.8 % (11.5-14.5) Platelet Count 276 x10^3/uL (140-400) Neutrophils (%) (Auto) 79 % (31-73) H Lymphocytes (%) (Auto) 9 % (24-48) L Monocytes (%) (Auto) 11 % (0-9) H Eosinophils (%) (Auto) 0 % (0-3) Basophils (%) (Auto) 0 % (0-3) Neutrophils # (Auto) 7.9 x10^3/uL (1.8-7.7) H Lymphocytes # (Auto) 0.9 x10^3/uL (1.0-4.8) L Monocytes # (Auto) 1.1 x10^3/uL (0.0-1.1) Eosinophils # (Auto) 0.0 x10^3/uL (0.0-0.7) Basophils # (Auto) 0.0 x10^3/uL (0.0-0.2) Sodium Level 132 mmol/L (136-145) L Potassium Level 4.6 mmol/L (3.5-5.1) Chloride Level 91 mmol/L (98-107) L Carbon Dioxide Level 13 mmol/L (21-32) L Anion Gap 28 (6-14) H Blood Urea Nitrogen 15 mg/dL (8-26) Creatinine 1.1 mg/dL (0.7-1.3) Estimated GFR (Cockcroft-Gault) 83.7 BUN/Creatinine Ratio 14 (6-20) Glucose Level 599 mg/dL (70-99) *H Calcium Level 9.5 mg/dL (8.5-10.1) Total Bilirubin 0.6 mg/dL (0.2-1.0) Aspartate Amino Transferase (AST) 21 U/L (15-37) Alanine Aminotransferase (ALT) 32 U/L (16-63) Alkaline Phosphatase 202 U/L (46-116) H Total Protein 7.6 g/dL (6.4-8.2) Albumin 4.2 g/dL (3.4-5.0) Albumin/Globulin Ratio 1.2 (1.0-1.7) Acetone Level Mod pos (NEG) Laboratory Tests 03/28/20 09:30 Laboratory Tests 03/28/20 09:30 Vital Signs: Vital Signs Date Time Temp Pulse Resp B/P (MAP) Pulse Ox O2 Delivery O2 Flow Rate FiO2 03/28/20 09:40 18 99 Room Air 03/28/20 09:15 97.8 122 138/88 (105) 97.8 EKG: EKG: [] Heart Score: Risk Factors: Risk Factors: DM, Current or recent (<one month) smoker, HTN, HLP, family history of CAD, obesity. Risk Scores: Score 0 - 3: 2.5% MACE over next 6 weeks - Discharge Home Score 4 - 6: 20.3% MACE over next 6 weeks - Admit for Clinical Observation Score 7 - 10: 72.7% MACE over next 6 weeks - Early Invasive Strategies Radiology/Procedures: Radiology/Procedures: [] Course & Med Decision Making: Course & Med Decision Making Pertinent Labs and Imaging studies reviewed. (See chart for details) [The patient remains awake, alert and is feeling much better after IV fluids and pain medication. Nonetheless the patient is in diabetic ketoacidosis and has been admitted to Dr. Grover for further medical management. The patient understands need for admission and has agreed to stay. He is resting comfortably and is awaiting transfer to the floor. Critical care time does not exceed 30 minutes excluding procedures. Dragon Disclaimer: Dragashley Disclaimer: This electronic medical record was generated, in whole or in part, using a voice recognition dictation system. Departure Departure Impression: Primary Impression: DKA (diabetic ketoacidoses) Disposition: ADMITTED INPT THIS HOSP Admitting Physician: SONIA Condition: CRITICAL Referrals: Edel RIGGS MD (PCP) ESTEVAN HOGAN DO Mar 28, 2020 09:35
[2020-03-28] MEDS ORDERED: ONDANSETRON PF 4 MG/2 ML VIAL. IVP ONE (09:45)
[2020-03-28] MEDS ORDERED: IV NORMAL SALINE 1000ML BAG 1,000 ML IV ONE (09:45)
[2020-03-28] MEDS ORDERED: MORPHINE SULFATE 4 MG/ML VIAL. IV ONE (09:45)
[2020-03-28 09:51] LABS: BASO % 0 % (0-3); EOS % 0 % (0-3); HEMATOCRIT 42.2 % (39.0-53.0); HEMOGLOBIN 14.4 g/dL (13.0-17.5); LYMPH # 0.9 x10^3/uL (1.0-4.8); LYMPH % 9 % (24-48); MEAN CORPUSCULAR HEMOGLOBIN 33 pg (25-35); MEAN CORPUSCULAR HGB CONC 34 g/dL (31-37); MEAN CORPUSCULAR VOLUME 97 fL (79-100); MONO # 1.1 x10^3/uL (0.0-1.1); MONO % 11 % (0-9); NEUT # 7.9 x10^3/uL (1.8-7.7); NEUT % 79 % (31-73); PLATELET COUNT 276 x10^3/uL (140-400); RED BLOOD COUNT 4.37 x10^6/uL (4.30-5.70); RED CELL DISTRIBUTION WIDTH 12.8 % (11.5-14.5); WHITE BLOOD COUNT 9.9 x10^3/uL (4.0-11.0)
[2020-03-28 09:57] LABS: ALBUMIN 4.2 g/dL (3.4-5.0); ALBUMIN/GLOBULIN RATIO 1.2 (1.0-1.7); CALCIUM 9.5 mg/dL (8.5-10.1); CREATININE 1.1 mg/dL (0.7-1.3); GFR 83.7; POTASSIUM 4.6 mmol/L (3.5-5.1); TOTAL BILIRUBIN 0.6 mg/dL (0.2-1.0); TOTAL PROTEIN 7.6 g/dL (6.4-8.2)
[2020-03-28] MEDS ORDERED: INSULIN REGULAR VIAL 100 UNIT in IV NORMAL SALINE 100ML 100 ML IV STA (10:18)
[2020-03-28] MEDS ORDERED: INSULIN,REGULAR 100 UNIT DRIP 100 ML IV ONE (10:30)
--- NOTE | 2020-03-28 10:32 | PDOC1 ---
History and Physical Date of Admission Date of Admission DATE: 03/28/20 TIME: 10:31 Identification/Chief Complaint Chief Complaint Nausea and vomiting Source Source: Patient History of Present Illness History of Present Illness Mr Kelly has been a type 1 diabetic since age 14. He was found with glucose of 599 acetone in urine and anion gap of 38. VBG showed 7.22 pH He continues to have nausea and has vomited 3 times prior to ED arrival. Recent sick contact of his mother who tested positive for COVID 19. Denies diarrhea, rash or other infectious complaint at this time. He notes back pain with nausea and vomiting. Has not checked his blood sugar quite some time. He began vomiting yesterday evening and has had episodes intermittently since that time. He states as well that his low back has been hurting since this occurred as well. He denies any history of fevers shortness of air or chest pain. It is worth noting the patient does use cocaine recreationally. He is awake, alert and uncomfortable appearing. When his mother leaves the room I discussed his positive cocaine urine drug screen and he admits to polysubstance abuse, including LSD. I have counseled him specifically on cocaine and diabetes on prior occasions as well. Admitted to ICU on insulin GTT. Was given 2L NSS in ED. Past Medical History Cardiovascular: HTN GI: No pertinent hx Heme/Onc: No pertinent hx Hepatobiliary: No pertinent hx Psych: Anxiety, Depression Rheumatologic: No pertinent hx Renal/: Acute renal failure Endocrine: Diabetes Past Surgical History Past Surgical History: No pertinent history Family History Family History: Depression, Diabetes Social History Smoke: No ALCOHOL: social Drugs: Cocaine, Marijuana Current Medications Current Medications Current Medications Sodium Chloride 1,000 ml @ 1,000 mls/hr Q1H IV Last administered on 03/28/20at 09:40; Start 03/28/20 at 09:30; Stop 03/28/20 at 10:29; Status DC Ondansetron HCl (Zofran) 4 mg 1X ONCE IVP Last administered on 03/28/20at 09:40; Start 03/28/20 at 09:45; Stop 03/28/20 at 09:46; Status DC Morphine Sulfate (Morphine Sulfate) 4 mg 1X ONCE IV Last administered on 03/28/20at 09:40; Start 03/28/20 at 09:45; Stop 03/28/20 at 09:46; Status DC Sodium Chloride 1,000 ml @ 1,000 mls/hr 1X ONCE IV ; Start 03/28/20 at 09:45; Stop 03/28/20 at 10:44 Insulin Human Regular 100 unit/ Sodium Chloride 101 ml @ 4.04 mls/hr 1X STAT IV ; Start 03/28/20 at 10:18; Stop 03/29/20 at 11:17; Status UNV Insulin Human Regular 100 ml @ 4 mls/hr 1X ONCE IV ; Start 03/28/20 at 10:30; Stop 03/29/20 at 11:29 Active Scripts Active Novolog Flexpen (Insulin Aspart) 100 Unit/1 Ml Insuln.pen 18 Units SQ QIDACHS 30 Days Basaglar Kwikpen U-100 (Insulin Glargine,Hum.rec.anlog) 100 Unit/1 Ml Insuln.pen 32 Units SQ HS 30 Days Proair Hfa (Albuterol Sulfate) 8.5 Gm Hfa.aer.ad 8.5 Gm IH TID PRN 30 Days Allergies Allergies: Coded Allergies: Penicillins (Verified Allergy, Intermediate, 05/27/15) amoxicillin (Verified Allergy, Intermediate, 05/27/15) cefaclor (Verified Allergy, Intermediate, 05/04/16) ROS General: YES: Chills, Night Sweats, Fatigue, Malaise, Appetite PSYCHOLOGICAL ROS: No: Anxiety, Behavioral Disorder, Concentration difficultie, Decreased libido, Depression, Disorientation, Hallucinations, Hostility, Irritablity, Memory difficulties, Mood Swings, Obsessive thoughts, Physical abuse, Sexual abuse, Sleep disturbances, Suicidal ideation, Other Eyes: No Blurry vision, No Decreased vision, No Double vision, No Dry eyes, No Excessive tearing, No Eye Pain, No Itchy Eyes, No Loss of vision, No Photophobia, No Scotomata, No Uses contacts, No Uses glasses, No Other HEENT: No: Heacaches, Visual Changes, Hearing change, Nasal congestion, Nasal discharge, Oral lesions, Sinus pain, Sore Throat, Epistaxis, Sneezing, Snoring, Tinnitus, Vertigo, Vocal changes, Other ALLERGY AND IMMUNOLOGY: No: Hives, Insect Bite Sensitivity, Itchy/Watery Eyes, Nasal Congestion, Post Nasal Drip, Seasonal Allergies, Other Hematological and Lymphatic: No: Bleeding Problems, Blood Clots, Blood Transfusions, Brusing, Night Sweats, Pallor, Swollen Lymph Nodes, Other ENDOCRINE: No: Breast Changes, Galactorrhea, Hair Pattern Changes, Hot Flashes, Malaise/lethargy, Mood Swings, Palpitations, Polydipsia/polyuria, Skin Changes, Temperature Intolerance, Unexpected Weight Changes, Other Breast: No New/Changing Breast Lumps, No Nipple changes, No Nipple discharge, No Other Respiratory: No: Cough, Hemoptysis, Orthopnea, Pleuritic Pain, Shortness of breath, SOB with excertion, Sputum Changes, Stridor, Tachypnea, Wheezing, Other Cardiovascular: No Chest Pain, No Palpitations, No Orthopnea, No Paroxysmal Noc. Dyspnea, No Edema, No Lt Headedness, No Other Gastrointestinal: Yes Nausea, Yes Vomiting; No Abdominal Pain, No Diarrhea, No Constipation, No Melena, No Hematochezia, No Other Genitourinary: No Dysuria, No Frequency, No Incontinence, No Hematuria, No Retention, No Discharge, No Urgency, No Pain, No Flank Pain, No Other, No , No , No , No , No , No , No Musculoskeletal: Yes Joint Pain; No Gait Disturbance, No Joint Stiffness, No Joint Swelling, No Muscle Pain, No Muscular Weakness, No Pain In:, No Swelling In:, No Other Neurological: No Behavorial Changes, No Bowel/Bladder ControlChng, No Confusion, No Dizziness, No Gait Disturbance, No Headaches, No Impaired Coord/ba whit, No Memory Loss, No Numbness/Tingling, No Seizures, No Speech Problems, No Tremors, No Visual Changes, No Weakness, No Other Skin: No Dry Skin, No Eczema, No Hair Changes, No Lumps, No Mole Changes, No Mottling, No Nail Changes, No Pruritus, No Rash, No Skin Lesion Changes, No Other, No Acne Physical Exam General: Alert, Oriented X3, Cooperative, moderate distress HEENT: Atraumatic, PERRLA, EOMI, Mucous membr. moist/pink Lungs: Clear to auscultation, Normal air movement Heart: S1S2, RRR, no thrills, no rubs, no gallops, no murmurs Abdomen: Normal bowel sounds, Soft, No tenderness, No hepatosplenomegaly, No masses Rectal Exam: not examined Extremities: No clubbing, No cyanosis, No edema, Normal pulses, No tenderness/swelling Skin: No rashes, No breakdown, No significant lesion Neuro: Normal gait, Normal speech, Strength at 5/5 X4 ext, Normal tone, Sensation intact, Cranial nerves 3-12 NL, Reflexes 2+ Psych/Mental Status: Mental status NL, Mood NL Vitals Vitals Vital Signs Date Time Temp Pulse Resp B/P (MAP) Pulse Ox O2 Delivery O2 Flow Rate FiO2 03/28/20 09:40 18 99 Room Air 03/28/20 09:15 97.8 122 138/88 (105) 97.8 Labs Labs Laboratory Tests Test 03/28/20 09:30 White Blood Count 9.9 x10^3/uL (4.0-11.0) Red Blood Count 4.37 x10^6/uL (4.30-5.70) Hemoglobin 14.4 g/dL (13.0-17.5) Hematocrit 42.2 % (39.0-53.0) Mean Corpuscular Volume 97 fL (79-100) Mean Corpuscular Hemoglobin 33 pg (25-35) Mean Corpuscular Hemoglobin Concent 34 g/dL (31-37) Red Cell Distribution Width 12.8 % (11.5-14.5) Platelet Count 276 x10^3/uL (140-400) Neutrophils (%) (Auto) 79 % (31-73) Lymphocytes (%) (Auto) 9 % (24-48) Monocytes (%) (Auto) 11 % (0-9) Eosinophils (%) (Auto) 0 % (0-3) Basophils (%) (Auto) 0 % (0-3) Neutrophils # (Auto) 7.9 x10^3/uL (1.8-7.7) Lymphocytes # (Auto) 0.9 x10^3/uL (1.0-4.8) Monocytes # (Auto) 1.1 x10^3/uL (0.0-1.1) Eosinophils # (Auto) 0.0 x10^3/uL (0.0-0.7) Basophils # (Auto) 0.0 x10^3/uL (0.0-0.2) Sodium Level 132 mmol/L (136-145) Potassium Level 4.6 mmol/L (3.5-5.1) Chloride Level 91 mmol/L (98-107) Carbon Dioxide Level 13 mmol/L (21-32) Anion Gap 28 (6-14) Blood Urea Nitrogen 15 mg/dL (8-26) Creatinine 1.1 mg/dL (0.7-1.3) Estimated GFR (Cockcroft-Gault) 83.7 BUN/Creatinine Ratio 14 (6-20) Glucose Level 599 mg/dL (70-99) Calcium Level 9.5 mg/dL (8.5-10.1) Total Bilirubin 0.6 mg/dL (0.2-1.0) Aspartate Amino Transf (AST/SGOT) 21 U/L (15-37) Alanine Aminotransferase (ALT/SGPT) 32 U/L (16-63) Alkaline Phosphatase 202 U/L (46-116) Total Protein 7.6 g/dL (6.4-8.2) Albumin 4.2 g/dL (3.4-5.0) Albumin/Globulin Ratio 1.2 (1.0-1.7) Acetone Level Mod pos (NEG) Laboratory Tests Test 03/28/20 09:30 White Blood Count 9.9 x10^3/uL (4.0-11.0) Red Blood Count 4.37 x10^6/uL (4.30-5.70) Hemoglobin 14.4 g/dL (13.0-17.5) Hematocrit 42.2 % (39.0-53.0) Mean Corpuscular Volume 97 fL (79-100) Mean Corpuscular Hemoglobin 33 pg (25-35) Mean Corpuscular Hemoglobin Concent 34 g/dL (31-37) Red Cell Distribution Width 12.8 % (11.5-14.5) Platelet Count 276 x10^3/uL (140-400) Neutrophils (%) (Auto) 79 % (31-73) Lymphocytes (%) (Auto) 9 % (24-48) Monocytes (%) (Auto) 11 % (0-9) Eosinophils (%) (Auto) 0 % (0-3) Basophils (%) (Auto) 0 % (0-3) Neutrophils # (Auto) 7.9 x10^3/uL (1.8-7.7) Lymphocytes # (Auto) 0.9 x10^3/uL (1.0-4.8) Monocytes # (Auto) 1.1 x10^3/uL (0.0-1.1) Eosinophils # (Auto) 0.0 x10^3/uL (0.0-0.7) Basophils # (Auto) 0.0 x10^3/uL (0.0-0.2) Sodium Level 132 mmol/L (136-145) Potassium Level 4.6 mmol/L (3.5-5.1) Chloride Level 91 mmol/L (98-107) Carbon Dioxide Level 13 mmol/L (21-32) Anion Gap 28 (6-14) Blood Urea Nitrogen 15 mg/dL (8-26) Creatinine 1.1 mg/dL (0.7-1.3) Estimated GFR (Cockcroft-Gault) 83.7 BUN/Creatinine Ratio 14 (6-20) Glucose Level 599 mg/dL (70-99) Calcium Level 9.5 mg/dL (8.5-10.1) Total Bilirubin 0.6 mg/dL (0.2-1.0) Aspartate Amino Transf (AST/SGOT) 21 U/L (15-37) Alanine Aminotransferase (ALT/SGPT) 32 U/L (16-63) Alkaline Phosphatase 202 U/L (46-116) Total Protein 7.6 g/dL (6.4-8.2) Albumin 4.2 g/dL (3.4-5.0) Albumin/Globulin Ratio 1.2 (1.0-1.7) Acetone Level Mod pos (NEG) VTE Prophylaxis Ordered VTE Prophylaxis Devices: Yes VTE Pharmacological Prophylaxi: Yes Assessment/Plan Assessment/Plan A/P: DKA - N/V. Likely combination of compliance issues and cocaine use. Insulin GTT, once gap closes glargine 32-45 units (start at 32 and adjust throughout the next few weeks) and reduce his lispro to 16-18 units TID with a low sliding scale for the next month until his pump is fixed KENDRA - likely vasomotor nephropathy from DKA, hydrated Lower back pain - lidoderm patch Polysubstance abuse - counseled specifically on cocaine given it may be eliciting his DKA episode frequency COVID 19 PUI - mother tested positive, will f/u results. No O2 needs FEN - NPO PPX - Lovenox FULL CODE Dispo - ICU. CC time 39 Justifications for Admission Other Justification RICKEY BROWN MD Mar 28, 2020 10:32
[2020-03-28] MEDS ORDERED: POTASSIUM CHLORIDE 10MEQ 100 ML IV PRN ×3 (11:00)
[2020-03-28 11:25] LABS: BILIRUBIN,URINE NEGATIVE (NEG); CLARITY,URINE CLEAR; COLOR,URINE YELLOW; NITRITE,URINE NEGATIVE (NEG); PROTEIN,URINE NEGATIVE (NEG-TRACE); UROBILINOGEN,URINE 0.2 mg/dL (0.2 mg/dL)
[2020-03-28 11:32] LABS: AMPHETAMINE/METHAMPHETAMINE NEG (NEG); BARBITURATES NEG (NEG); BENZODIAZEPINES NEG (NEG); CANNABINOIDS NEG (NEG); COCAINE POS (NEG); METHADONE NEG (NEG); OPIATES POS (NEG); PHENCYCLIDINE NEG (NEG)
[2020-03-28 11:36] LABS: BACTERIA,URINE 0 /HPF (0-FEW); RBC,URINE 0 /HPF (0-2); WBC,URINE 0 /HPF (0-4)
[2020-03-28] MEDS: POTASSIUM CHLORIDE 10MEQ 100 ML IV SCH ×2 (12:44→13:43)
[2020-03-28 13:03] LABS: FIO2 VENOUS ISTAT 21; ISTAT BE VENOUS -13 mmol/L (0-3); ISTAT HCO3 VEN 14 mmol/L (24-28); ISTAT PCO2 VEN 35 mmHg (41-51); ISTAT PH VEN 7.22 (7.32-7.42); ISTAT PO2 VEN 152 mmHg (20-40); ISTAT SAT O2 VEN 99 %; ISTAT TCO2 VEN 15 mmol/L (21-32)
[2020-03-28] MEDS ORDERED: KETOROLAC 30 MG/ML VIAL. IVP ONE (13:15)
--- NOTE | 2020-03-28 13:50 | NUR ---
Patient arrived from ER and ambulated to bed. Patient is pleasant and under no apparent distress at this time. Complains of moderated lower back pain. Patient admits to drinking 24 beers, a pack of cigarettes per hour, and doing cocaine while playing video games 3 times a week. Patient educated on the need to quit and he stated he knows he is going to by age 37 from type 1 diabetes so what is the point. Patient educated on the need to monitor blood sugars and administer proper insulin dosing. Patient states its been months since he last checked his BS and stated that the fingersticks are too painful. Patient also tells me that his mother, whom he lives with, tested positive for COVID 19 today. Patient states he has not had any symptoms. No fever, cough, loss of taste/smell, fatigue, or SOB noted. Patient was started on DKA protocol and given a lidocaine patch for his pain per Dr. Grover.
[2020-03-28] MEDS ORDERED: LIDOCAINE (700MG/PATCH) PATCH. TD SCH (14:00)
[2020-03-28 14:30] LABS: CALCIUM 8.1 mg/dL (8.5-10.1); CREATININE 0.9 mg/dL (0.7-1.3); GFR 105.5; MAGNESIUM 1.8 mg/dL (1.8-2.4); POTASSIUM 4.9 mmol/L (3.5-5.1)
[2020-03-28] MEDS ORDERED: IV DEXTROSE 5% - 0.9 % NACL 1,000 ML IV SCH (15:30)
[2020-03-28] MEDS ORDERED: DEXTROSE 50% 25 GM / 50ML DISP.SYRIN. IV PRN (16:45)
[2020-03-28] MEDS ORDERED: CYCLOBENZAPRINE 10 MG TABLET. PO PRN (16:45)
[2020-03-28] MEDS ORDERED: traMADol 50 MG TABLET PO PRN (16:45)
[2020-03-28] MEDS ORDERED: INSULIN LISPRO 300 UNITS/3 ML VIAL. SQ SCH (17:00)
[2020-03-28] MEDS: INSULIN LISPRO 300 UNITS/3 ML VIAL. SQ SCH ×2 (17:00→18:12)
[2020-03-28 18:15] LABS: CALCIUM 8.2 mg/dL (8.5-10.1); CREATININE 0.6 mg/dL (0.7-1.3); GFR 168.5; MAGNESIUM 1.9 mg/dL (1.8-2.4); PHOSPHORUS 1.8 mg/dL (2.6-4.7); POTASSIUM 3.5 mmol/L (3.5-5.1)
--- NOTE | 2020-03-28 18:44 | NUR ---
Patient leaving AMA after saying he is done with this. Notified Dr. Grover. Paperwork signed. IV removed.
[2020-03-28] MEDS ORDERED: PATCH REMOVAL. MC SCH (21:00)
[2020-03-28] MEDS ORDERED: INSULIN GLARGINE SYRINGE. SQ SCH (21:00)
--- NOTE | 2020-03-29 09:35 | NUR ---
IP: Informed pt of positive COVID test and the need to quarantine for 14 days. Pt verbalized understanding.
== END 2020-03-28 18:52 | disposition left against medical advice (07) | DRG 682 ==
LOC: ER 09:02 → 1 WEST ICU 10:20
PROVIDERS: ADMIT Internal Medicine; ATTEND Internal Medicine
DX: N17.0 Acute kidney failure with tubular necrosis (principal); E10.10 Type 1 diabetes mellitus with ketoacidosis without coma; F14.10 Cocaine abuse, uncomplicated; I10 Essential (primary) hypertension; Z20.822 Contact with and (suspected) exposure to COVID-19; Z79.4 Long term (current) use of insulin; Z81.8 Family history of other mental and behavioral disorders; Z83.3 Family history of diabetes mellitus; Z87.891 Personal history of nicotine dependence; Z91.19 Patient's noncompliance with other medical treatment and regimen; F32.9 Major depressive disorder, single episode, unspecified; F41.9 Anxiety disorder, unspecified; Z88.8 Allergy status to other drugs, medicaments and biological substances; Z53.29 Procedure and treatment not carried out because of patient's decision for other reasons
CPT/HCPCS: 36415; 80048; 80053; 80307; 81001; 82010; 82803; 82962; 83735; 84100; 85025; 96361; 96365; 96375; J1815; J1885; J2270; J2405; J3480; J7030; J7042; U0003; 99291-25; G0378

== ENCOUNTER → 2020-11-28 | Outpatient (CLI) | payer OTHER ==
[2020-03-28 18:00] VITALS: BP 134/85
--- NOTE | 2020-11-28 08:52 | RAD ---
Site ID: [id number] EXAMINATION: US ABDOMEN LIMITED. TECHNIQUE: Sonographic evaluation of the right upper quadrant with special service representative images obtained HISTORY: 25 years Male Reason: NAUSEA, VOMITING COMPARISON: Correlation with CT from January 23, 2020. FINDINGS: The pancreas is visualized portions appear grossly unremarkable. The liver is measures 15.9 cm craniocaudally. Echogenicity of the hepatic parenchyma is within ike l limits. No focal liver masses are identified. The portal vein is patent and demonstrates appropri ate direction of flow. The CBD caliber is 5 mm. The gallbladder demonstrates no stones, wall thickening or pericholecystic fluid. Sonographic Serna sign is reportedly negative. The right kidney measures 11.5 cm in length. No hydronephrosis. No fluid collection in the upper right abdomen is seen. IMPRESSION: No gallstones or evidence of cholecystitis. Electronically signed by: Nikolas Sanchez MD (11/28/2020 8:49 AM) [id number]
== END ==
LOC: US 07:05
PROVIDERS: ATTEND Family Medicine
DX: R11.2 Nausea with vomiting, unspecified (principal)
CPT/HCPCS: 76705

== ENCOUNTER 2020-12-16 09:33 | Emergency (ER) | payer OTHER ==
[~2020-12-16] VITALS: Ht 177.8 cm; Wt 68.1 kg
[2020-12-16] MEDS ORDERED: IV NORMAL SALINE 1000ML BAG 1,000 ML IV ONE ×2 (10:00→11:15)
[2020-12-16 10:25] LABS: CALCIUM 10.3 mg/dL (8.5-10.1); GFR 92.6; POTASSIUM 3.3 mmol/L (3.5-5.1)
[2020-12-16 10:31] LABS: ALBUMIN 4.7 g/dL (3.4-5.0); ALBUMIN/GLOBULIN RATIO 1.2 (1.0-1.7); MAGNESIUM 1.7 mg/dL (1.8-2.4); TOTAL BILIRUBIN 0.5 mg/dL (0.2-1.0); TOTAL PROTEIN 8.7 g/dL (6.4-8.2)
--- NOTE | 2020-12-16 10:35 | RAD ---
INDICATION: Reason: seizure like activity / Spl. Instructions: / History: COMPARISON: December 2017 TECHNIQUE: Axial CT images obtained through the head without intravenous contrast. One or more of the following individualized dose reduction techniques were utilized for this examinat ion: 1. Automated exposure control; 2. Adjustment of the mA and/or kV according to patient size; 3 . Use of iterative reconstruction technique. FINDINGS: No intracranial hemorrhage. No significant midline shift. Ventricles and sulci are unremarkable. No acute osseous abnormality. IMPRESSION: * No acute intracranial hemorrhage. * Focus of low density at the brainstem. This is a very common location for artifact which is the mo st likely cause of this finding but this could obscure a focus of edema. Electronically signed by: Chris Regan MD (12/16/2020 10:32 AM) [id number]
[2020-12-16 10:40] LABS: BASO % 0 % (0-3); EOS % 0 % (0-3); HEMATOCRIT 46.4 % (39.0-53.0); HEMOGLOBIN 15.4 g/dL (13.0-17.5); LYMPH # 3.8 x10^3/uL (1.0-4.8); LYMPH % 27 % (24-48); MEAN CORPUSCULAR HEMOGLOBIN 32 pg (25-35); MEAN CORPUSCULAR HGB CONC 33 g/dL (31-37); MEAN CORPUSCULAR VOLUME 97 fL (79-100); MONO # 1.2 x10^3/uL (0.0-1.1); MONO % 9 % (0-9); NEUT # 8.8 x10^3/uL (1.8-7.7); NEUT % 63 % (31-73); PLATELET COUNT 414 x10^3/uL (140-400); RED BLOOD COUNT 4.79 x10^6/uL (4.30-5.70); RED CELL DISTRIBUTION WIDTH 12.9 % (11.5-14.5); WHITE BLOOD COUNT 13.9 x10^3/uL (4.0-11.0)
--- NOTE | 2020-12-16 10:49 | PHYS DOC ---
Past Medical History Past Medical History: Diabetes-Type I Past Medical History Limited due to seizure like activity and confusion Past Surgical History: Other Additional Past Surgical Histo: right foot Past Surgical History Limited due to seizure like activity and confusion Smoking Status: Former Smoker Alcohol Use: None Drug Use: Cocaine, Marijuana Social History Limited due to seizure like activity and confusion General Adult EDM: Chief Complaint: SEIZURE HPI: HPI: Patient is a 25-year-old male with past medical history of diabetes presents with report of fogginess and altered mental status which occurred just prior to arrival. Mother also presented to the triage area with patient with concerned that his "brain was swelling ". Reports concerned that he is in DKA. Patient reports has not been feeling well since yesterday. Does report some associated nausea. Denies any vomiting or diarrhea. History of present illness limited due to seizure like activity and confusion Review of Systems: Review of Systems: Constitutional: Denies fever or chills Respiratory: Denies cough or shortness of breath Cardiovascular: Denies chest pain or palpitations GI: Denies abdominal pain or vomiting; reports nausea : Denies dysuria or hematuria Musculoskeletal: Denies back pain or joint pain Integument: Denies rash or skin lesions Neurologic: Denies headache; reports seizure-like activity Review of systems limited due to seizure like activity and confusion Heart Score: C/O Chest Pain: N/A Current Medications: Current Medications Medications (Trade) Dose Ordered Sig/Nam Start Time Stop Time Status Last Admin Dose Admin Lorazepam (Ativan Inj) 1 mg 1X ONCE 12/16/20 10:00 12/16/20 10:01 DC 12/16/20 10:26 1 MG Sodium Chloride 1,000 ml @ 1,000 mls/hr 1X ONCE 12/16/20 10:00 12/16/20 10:59 12/16/20 10:25 1,000 MLS/HR Allergies: Allergies: Allergies Coded Allergies Type Severity Reaction Last Updated Verified Penicillins Allergy Intermediate 05/27/15 Yes amoxicillin Allergy Intermediate 05/27/15 Yes cefaclor Allergy Intermediate 05/04/16 Yes Physical Exam: PE: Constitutional: Well developed, well nourished, no acute distress, non-toxic appearance HENT: Normocephalic, atraumatic Eyes: PERRL, EOMI, conjunctiva normal, no discharge Neck: Normal range of motion, no tenderness, supple, no meningeal signs Lungs & Thorax: No respiratory distress, equal chest rise and fall Abdomen: Soft, no tenderness, no guarding/rebound tenderness/distention Skin: Warm, dry, no erythema, no rash Extremities: No tenderness, ROM intact, no edema Neurologic: Alert and oriented X name, normal motor function, normal sensory function, no focal deficits noted Psychologic: Affect normal, judgment abnormal Current Patient Data: Labs: Laboratory Tests Test 12/16/20 09:55 Sodium Level 142 mmol/L (136-145) Potassium Level 3.3 mmol/L (3.5-5.1) L Chloride Level 100 mmol/L (98-107) Carbon Dioxide Level 15 mmol/L (21-32) L Anion Gap 27 (6-14) H Blood Urea Nitrogen 5 mg/dL (8-26) L Creatinine 1.0 mg/dL (0.7-1.3) Estimated GFR (Cockcroft-Gault) 92.6 BUN/Creatinine Ratio 5 (6-20) L Glucose Level 196 mg/dL (70-99) H Glucose (Fingerstick) 193 mg/dL (70-99) H Calcium Level 10.3 mg/dL (8.5-10.1) H Magnesium Level 1.7 mg/dL (1.8-2.4) L Total Bilirubin 0.5 mg/dL (0.2-1.0) Aspartate Amino Transferase (AST) 16 U/L (15-37) Alanine Aminotransferase (ALT) 24 U/L (16-63) Alkaline Phosphatase 110 U/L (46-116) Creatine Kinase 73 U/L (39-308) Total Protein 8.7 g/dL (6.4-8.2) H Albumin 4.7 g/dL (3.4-5.0) Albumin/Globulin Ratio 1.2 (1.0-1.7) Ethyl Alcohol Level < 10 mg/dL (0-10) Acetone Level Neg (NEG) Laboratory Tests 12/16/20 09:55 Vital Signs: Vital Signs Date Time Temp Pulse Resp B/P (MAP) Pulse Ox O2 Delivery O2 Flow Rate FiO2 12/16/20 09:51 98.4 137 22 176/87 (116) 95 Room Air 98.4 EKG: EKG: @1007 Sinus tachycardia at 115bpm, NO ST elevation, QRS 104ms, QT/QTc 308/428ms Radiology/Procedures: Radiology/Procedures: PROCEDURE: CT HEAD WO CONTRAST INDICATION: Reason: seizure like activity / Spl. Instructions: / History: COMPARISON: December 2017 TECHNIQUE: Axial CT images obtained through the head without intravenous contrast. One or more of the following individualized dose reduction techniques were utilized for this examination: 1. Automated exposure control; 2. Adjustment of the mA and/or kV according to patient size; 3. Use of iterative reconstruction technique. FINDINGS: No intracranial hemorrhage. No significant midline shift. Ventricles and sulci are unremarkable. No acute osseous abnormality. IMPRESSION: * No acute intracranial hemorrhage. * Focus of low density at the brainstem. This is a very common location for artifact which is the most likely cause of this finding but this could obscure a focus of edema. Electronically signed by: Chris Regan MD (12/16/2020 10:32 AM) DESKTOP- [id number] Course & Med Decision Making: Course & Med Decision Making Pertinent Labs and Imaging studies reviewed. (See chart for details) Patient with past medical history of diabetes presents with his mother with report of ill feeling with associated nausea. Denies known sick contacts. Denies known exposure to COVID-19. Patient noted to be thrashing about on bed. Labs obtained and posted to chart. Lactic acid significantly elevated. Hypokalemia and hypomagnesemia addressed. IV fluid hydration given. CT head without acute process. Patient with interval resolution of altered mental status. Patient likely had a seizure. Patient stable for discharge with outpatient follow-up with PCP/neurologist. Neurology referral provided. Educated patient that he must be seizure-free x6 months or until cleared by neurologist in order to drive or operate heavy machinery. Discussed findings and plan with patient and parent, who acknowledge understanding and agreement. Keyshawn Disclaimer: Keyshawn Disclaimer: This electronic medical record was generated, in whole or in part, using a voice recognition dictation system. Departure Departure Impression: Primary Impression: Witnessed seizure-like activity Additional Impressions: Hypokalemia Hypomagnesemia Disposition: 01 HOME / SELF CARE / HOMELESS Condition: STABLE Referrals: Edel RIGGS MD (PCP) DAVY SAINI MD Patient Instructions: Hypokalemia, Hypomagnesemia, Potassium Content of Foods, Seizure, Adult, Advw-ro-Utph KAYLEY UMAÑA DO Dec 16, 2020 10:49
[2020-12-16] MEDS ORDERED: POTASSIUM CHLORIDE 20 MEQ TABLET.ER. PO ONE (11:00)
[2020-12-16] MEDS ORDERED: MAGNESIUM CHLORIDE ER 64 MG TABLET.ER PO ONE (11:00)
[2020-12-16] MEDS ORDERED: KETOROLAC 15 MG/ML VIAL. IVP ONE (11:45)
[2020-12-16 11:57] LABS: BARBITURATES NEG (NEG); BENZODIAZEPINES NEG (NEG); CANNABINOIDS NEG (NEG); COCAINE NEG (NEG); METHADONE NEG (NEG); OPIATES NEG (NEG); PHENCYCLIDINE NEG (NEG)
[2020-12-16 11:59] LABS: AMPHETAMINE/METHAMPHETAMINE NEG (NEG)
[2020-12-16 13:00] VITALS: BP 143/92
--- NOTE | 2020-12-16 13:05 | EKG ---
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
== END 2020-12-16 13:28 | disposition home or self-care (01) ==
LOC: ER 09:33
DX: R56.9 Unspecified convulsions (principal); E87.6 Hypokalemia; E83.42 Hypomagnesemia; E10.9 Type 1 diabetes mellitus without complications; Z87.891 Personal history of nicotine dependence; Z88.0 Allergy status to penicillin; Z88.1 Allergy status to other antibiotic agents; Z88.8 Allergy status to other drugs, medicaments and biological substances
CPT/HCPCS: 36415; 70450; 80053; 80307; 82010; 82550; 82962; 83605; 83735; 85025; 93005; 96361; 96374; 96375; 99285; G0480; J1885; J2060; J7030

== ENCOUNTER 2020-12-21 23:18 | Emergency (ER) | payer OTHER ==
[~2020-12-21] VITALS: Ht 177.8 cm; Wt 59.0 kg
[2020-12-21] MEDS ORDERED: IV NORMAL SALINE 1000ML BAG 1,000 ML IV ONE (23:30)
[2020-12-21] MEDS ORDERED: METOCLOPRAMIDE HCL 10 MG/2 ML VIAL. IVP ONE (23:30)
[2020-12-21 23:41] LABS: BASO # 0.1 x10^3/uL (0.0-0.2); BASO % 1 % (0-3); EOS # 0.1 x10^3/uL (0.0-0.7); EOS % 1 % (0-3); HEMATOCRIT 37.4 % (39.0-53.0); LYMPH # 3.5 x10^3/uL (1.0-4.8); LYMPH % 21 % (24-48); MEAN CORPUSCULAR HEMOGLOBIN 33 pg (25-35); MEAN CORPUSCULAR HGB CONC 35 g/dL (31-37); MEAN CORPUSCULAR VOLUME 94 fL (79-100); MONO # 0.9 x10^3/uL (0.0-1.1); MONO % 5 % (0-9); NEUT % 72 % (31-73); PLATELET COUNT 284 x10^3/uL (140-400); RED BLOOD COUNT 3.98 x10^6/uL (4.30-5.70); RED CELL DISTRIBUTION WIDTH 12.8 % (11.5-14.5); WHITE BLOOD COUNT 16.7 x10^3/uL (4.0-11.0)
--- NOTE | 2020-12-21 23:47 | PHYS DOC ---
Past Medical History Past Medical History: Diabetes-Type I Past Surgical History: No Surgical History Additional Past Surgical Histo: right foot Smoking Status: Former Smoker Alcohol Use: None Drug Use: Cocaine, Marijuana General Adult EDM: Chief Complaint: NAUSEA/VOMITING/DIARRHEA HPI: HPI: Patient is a 25 year old male who was brought here by EMS from home due to nausea and vomiting. Patient has history of diabetes, he took his insulin this morning per sliding scale. Patient said he did not eat breakfast lunch and dinner tonight. Patient said about 1 hour ago he started feeling nauseous with vomiting. Patient has been dry heaving, patient is a vomit so much that his lower back hurt. Patient denies any chest pain, no trouble breathing, no cough, no fever. Patient denies any injury Review of Systems: Review of Systems: Constitutional: Denies fever or chills. [] Eyes: Denies change in visual acuity. [] HENT: Denies nasal congestion or sore throat. [] Respiratory: Denies cough or shortness of breath. [] Cardiovascular: Denies chest pain or edema. [] GI: Denies abdominal pain, positive for nausea vomiting, no diarrhea : Denies dysuria. [] Musculoskeletal: Positive for low back pain, no joint pain. Integument: Denies rash. [] Neurologic: Denies headache, focal weakness or sensory changes. [] Endocrine: Denies polyuria or polydipsia. [] Lymphatic: Denies swollen glands. [] Psychiatric: Denies depression or anxiety. [] Heart Score: C/O Chest Pain: N/A Risk Factors: Risk Factors: DM, Current or recent (<one month) smoker, HTN, HLP, family history of CAD, obesity. Risk Scores: Score 0 - 3: 2.5% MACE over next 6 weeks - Discharge Home Score 4 - 6: 20.3% MACE over next 6 weeks - Admit for Clinical Observation Score 7 - 10: 72.7% MACE over next 6 weeks - Early Invasive Strategies Current Medications: Current Medications Medications (Trade) Dose Ordered Sig/Nam Start Time Stop Time Status Last Admin Dose Admin Metoclopramide HCl (Reglan Vial) 10 mg 1X ONCE 12/21/20 23:30 12/21/20 23:31 DC 12/21/20 23:30 10 MG Sodium Chloride 1,000 ml @ 1,000 mls/hr 1X ONCE 12/21/20 23:30 12/22/20 00:29 12/21/20 23:33 1,000 MLS/HR Allergies: Allergies: Allergies Coded Allergies Type Severity Reaction Last Updated Verified Penicillins Allergy Intermediate 05/27/15 Yes amoxicillin Allergy Intermediate 05/27/15 Yes cefaclor Allergy Intermediate 05/04/16 Yes Physical Exam: PE: Constitutional: Well developed, well nourished, no acute distress, non-toxic appearance. [] HENT: Normocephalic, atraumatic, bilateral external ears normal, oropharynx moist, no oral exudates, nose normal. [] Eyes: PERRLA, EOMI, conjunctiva normal, no discharge. [] Neck: Normal range of motion, no tenderness, supple, no stridor. [] Cardiovascular:Heart rate regular rhythm, no murmur [] Lungs & Thorax: Bilateral breath sounds clear to auscultation [] Abdomen: Bowel sounds normal, soft, no tenderness, no masses, no pulsatile masses. [] Skin: Warm, dry, no erythema, no rash. [] Back: No tenderness, no CVA tenderness. [] Extremities: No tenderness, no cyanosis, no clubbing, ROM intact, no edema. [] Neurologic: Alert and oriented X 3, normal motor function, normal sensory function, no focal deficits noted. [] Psychologic: Affect normal, judgement normal, mood normal. [] Current Patient Data: Labs: Laboratory Tests Test 12/21/20 23:21 12/21/20 23:23 Glucose (Fingerstick) 115 mg/dL (70-99) H White Blood Count 16.7 x10^3/uL (4.0-11.0) H Red Blood Count 3.98 x10^6/uL (4.30-5.70) L Hemoglobin 13.0 g/dL (13.0-17.5) Hematocrit 37.4 % (39.0-53.0) L Mean Corpuscular Volume 94 fL (79-100) Mean Corpuscular Hemoglobin 33 pg (25-35) Mean Corpuscular Hemoglobin Concent 35 g/dL (31-37) Red Cell Distribution Width 12.8 % (11.5-14.5) Platelet Count 284 x10^3/uL (140-400) Neutrophils (%) (Auto) 72 % (31-73) Lymphocytes (%) (Auto) 21 % (24-48) L Monocytes (%) (Auto) 5 % (0-9) Eosinophils (%) (Auto) 1 % (0-3) Basophils (%) (Auto) 1 % (0-3) Neutrophils # (Auto) 12.0 x10^3/uL (1.8-7.7) H Lymphocytes # (Auto) 3.5 x10^3/uL (1.0-4.8) Monocytes # (Auto) 0.9 x10^3/uL (0.0-1.1) Eosinophils # (Auto) 0.1 x10^3/uL (0.0-0.7) Basophils # (Auto) 0.1 x10^3/uL (0.0-0.2) Laboratory Tests 12/21/20 23:23 Vital Signs: Vital Signs Date Time Temp Pulse Resp B/P (MAP) Pulse Ox O2 Delivery O2 Flow Rate FiO2 12/21/20 23:21 99.6 100 16 156/78 (104) 99 Room Air 99.6 EKG: EKG: [] Radiology/Procedures: Radiology/Procedures: [][facility] [address] [place], [place] [id number] IMAGING REPORT Signed PATIENT: CLEMENTE MALONEY ACCOUNT: [id number] : 1995 LOCATION: ER AGE: 25 SEX: M EXAM STATUS: REG ER ORD. PHYSICIAN: CARMELINA PAUL DO REASON: ABDOMINAL PAIN, BACK PAIN, N/V, OMNI 300 75 ML IV PROCEDURE: CT ABD PELV W/ IV CONTRST ONLY CT abdomen pelvis with contrast dated 12/22/2020. No comparison available. Clinical indication: Abdominal pain and back pain. TECHNIQUE: Contiguous axial imaging the abdomen pelvis performed after the administration of 75 cc Omnipaque 300. One or more of the following individualized dose reduction techniques were utilized for this examination: 1. Automated exposure control 2. Adjustment of the mA and/or kV according to patient size 3. Use of iterative reconstruction technique. FINDINGS: Limited images of lung bases are clear. Heart size within normal limits. No pleural or pericardial effusion. Liver, spleen, pancreas, adrenal glands, gallbladder and kidneys are unremarkable. No hydronephrosis. Unopacified GI tract normal in caliber and contour. No focal bowel wall thickening. No inflammatory stranding in the mesentery. No ascites or lymphadenopathy. Appendix normal in caliber. Abdominal aorta normal in caliber. Images of pelvis show mild wall thickening of the urinary bladder which is somewhat collapsed. No calcific bladder stone. The prostate gland is normal in size. No free fluid or pelvic adenopathy. Bone windows show no acute finding. IMPRESSION: 1. No acute abnormality of abdomen or pelvis. Normal appendix. 2. Mild diffuse wall thickening of the urinary bladder, nonspecific. Consider acute or chronic cystitis. Electronically signed by: Noble Galloway MD (12/22/2020 1:10 AM) [facility] [place] [facility] [place] DICTATED and SIGNED BY: NOBLE GALLOWAY MD DATE: 12/22/20 [id number] 0 Course & Med Decision Making: Course & Med Decision Making Pertinent Labs and Imaging studies reviewed. (See chart for details) Patient is a 24-year-old male who present to ER due to nausea vomiting and abdominal pain. CT scan did not show any acute problem. Patient has history of diabetes, he was found to to have low magnesium and low potassium level. Patient is on insulin at home. Patient was given potassium and magnesium in the ER with IV fluid and nausea medication. Patient felt much better. Patient will be discharged back home, he will need to follow-up with family physician for reevaluation on Wednesday. Keyshawn Disclaimer: Keyshawn Disclaimer: This electronic medical record was generated, in whole or in part, using a voice recognition dictation system. Departure Departure Impression: Primary Impression: Nausea & vomiting Additional Impressions: Hypokalemia Hypomagnesemia Disposition: HOME / SELF CARE / HOMELESS Condition: IMPROVED Referrals: Edel RIGGS MD (PCP) Follow up with your doctor on Wednesday for reevaluation. Patient Instructions: Hypokalemia, Hypomagnesemia, Nausea and Vomiting Additional Instructions: Thank you for visiting our Emergency Department. We appreciate you trusting us with your care. If any additional problems come up don't hesitate to return to visit us. Please follow up with your primary care provider so they can plan additional care if needed and know about the problem that you had. If symptoms worsen come back to the Emergency Department. Any concerning symptoms that start such as chest pain, shortness of air, weakness or numbness on one side of the body, running high fevers or any other concerning symptoms return to the ER. CARMELINA PAUL DO Dec 21, 2020 23:47
[2020-12-21 23:50] LABS: CALCIUM 9.3 mg/dL (8.5-10.1); CREATININE 0.9 mg/dL (0.7-1.3); GFR 104.6; POTASSIUM 3.3 mmol/L (3.5-5.1)
[2020-12-21 23:56] LABS: ALBUMIN 3.9 g/dL (3.4-5.0); ALBUMIN/GLOBULIN RATIO 1.2 (1.0-1.7); MAGNESIUM 1.4 mg/dL (1.8-2.4); TOTAL BILIRUBIN 0.2 mg/dL (0.2-1.0); TOTAL PROTEIN 7.1 g/dL (6.4-8.2)
[2020-12-22] MEDS ORDERED: POTASSIUM CHLORIDE 10 MEQ TABLET.ER. PO ONE (00:30)
[2020-12-22] MEDS ORDERED: MAGNESIUM SULFATE 2GM 50 ML IV ONE (00:30)
[2020-12-22] MEDS ORDERED: CONTRAST GIVEN. MC PRN (00:45)
[2020-12-22] MEDS ORDERED: ONDANSETRON PF 4 MG/2 ML VIAL. IVP ONE (00:45)
[2020-12-22] MEDS ORDERED: IOHEXOL 300 MG/ML 100ML VIAL. IV ONE (00:45)
[2020-12-22 01:01] LABS: BILIRUBIN,URINE NEGATIVE (NEG); CLARITY,URINE CLEAR; COLOR,URINE YELLOW; NITRITE,URINE NEGATIVE (NEG); PH,URINE 8.5 (<5.0-8.0); PROTEIN,URINE 30 mg/dL (NEG-TRACE); UROBILINOGEN,URINE 0.2 mg/dL (0.2 mg/dL)
--- NOTE | 2020-12-22 01:12 | RAD ---
CT abdomen pelvis with contrast dated 12/22/2020. No comparison available. Clinical indication: Abdominal pain and back pain. TECHNIQUE: Contiguous axial imaging the abdomen pelvis performed after the administration of 75 cc Omnipaque 300 . One or more of the following individualized dose reduction techniques were utilized for this examinat ion: 1. Automated exposure control 2. Adjustment of the mA and/or kV according to patient size 3. Use of iterative reconstruction technique. FINDINGS: Limited images of lung bases are clear. Heart size within normal limits. No pleural or pericardial ef fusion. Liver, spleen, pancreas, adrenal glands, gallbladder and kidneys are unremarkable. No hydronephrosis. Unopacified GI tract normal in caliber and contour. No focal bowel wall thickening. No inflammatory s tranding in the mesentery. No ascites or lymphadenopathy. Appendix normal in caliber. Abdominal aorta normal in caliber. Images of pelvis show mild wall thickening of the urinary bladder which is somewhat collapsed. No mala cific bladder stone. The prostate gland is normal in size. No free fluid or pelvic adenopathy. Bone windows show no acute finding. IMPRESSION: 1. No acute abnormality of abdomen or pelvis. Normal appendix. 2. Mild diffuse wall thickening of the urinary bladder, nonspecific. Consider acute or chronic cystit is. Electronically signed by: Noble Galloway MD (12/22/2020 1:10 AM) KALEB
[2020-12-22 01:45] LABS: BACTERIA,URINE FEW /HPF (0-FEW)
[2020-12-22 03:00] VITALS: BP 174/76
== END 2020-12-22 03:07 | disposition home or self-care (01) ==
LOC: ER 23:18
DX: R11.2 Nausea with vomiting, unspecified (principal); E87.6 Hypokalemia; E83.42 Hypomagnesemia; E10.9 Type 1 diabetes mellitus without complications; Z87.891 Personal history of nicotine dependence; Z88.0 Allergy status to penicillin; Z88.1 Allergy status to other antibiotic agents; Z88.8 Allergy status to other drugs, medicaments and biological substances
CPT/HCPCS: 36415; 74177; 80053; 81001; 82010; 82962; 83690; 83735; 85025; 96361; 96365; 96366; 96375; 99285; G0480; J2405; J2765; J3475; J7030; Q9967

== ENCOUNTER 2021-01-03 07:51 | Emergency (ER) | payer OTHER | END 2021-01-03 08:14 | disposition left against medical advice (07) | LOC: ER 07:51 | DX: I10 Essential (primary) hypertension (principal); Z53.21 Procedure and treatment not carried out due to patient leaving prior to being seen by health care provider ==

== ENCOUNTER 2021-01-30 07:17 | Emergency (ER) | payer OTHER ==
[~2021-01-30] VITALS: Ht 177.8 cm; Wt 63.6 kg
[~2021-01-30 07:17] MED LIST changes: -LISI-517 PO; +LISI5TAB15 PO
--- NOTE | 2021-01-30 07:21 | PHYS DOC ---
Past Medical History Past Medical History: Diabetes-Type I Past Surgical History: No Surgical History Additional Past Surgical Histo: right foot Smoking Status: Never Smoker Alcohol Use: Rarely Drug Use: Cocaine, Marijuana General Adult HPI: HPI: Patient is a 25 year old male who comes in via EMS for hyperglycemia, nausea, vomiting, diarrhea, chronic mid and low back pain. He has a history of DKA. He has history of dietary noncompliance. He reports that he has lost his supplies to check his blood sugar recently, though he reports compliance with insulin regimen. He denies fevers or chills. He reports he has a chronic, dry cough, times years which is unchanged. Denies hemoptysis. He denies abdominal pain. He reports that he has chronic back pain, and he reports that whenever he has symptoms like this, with hyperglycemia his back always hurts. He denies radiation of pain, denies any acute injury or trauma, denies numbness tingling or weakness. Denies incontinence of stool or urine. He reports polyuria polydipsia symptoms. He denies hematemesis. He denies chest pain or dyspnea. He reports he has a history of gastroparesis. He repeatedly loudly demands pain medicine and nausea medicine. He curses frequently. He reports that he will always take an ambulance here to the ER instead of coming through the front door and waiting the waiting room because he feels that he was ignored the last few times he did this and reports that he had a seizure. There is a documentation of seizure-like activity from a previous visit, though he reports no recent seizure activity. He has not reportedly followed up with neurology as it was suggested to him at that time. He denies headache, dizziness, vertigo, syncope, fall or in jury. Review of Systems: Review of Systems: Constitutional: Denies fever or chills. [] Eyes: Denies change in visual acuity. [] HENT: Denies nasal congestion or sore throat. [] Respiratory: Chronic, dry cough. Denies hemoptysis. Denies dyspnea. Cardiovascular: Denies chest pain or edema. [] GI: Ports nausea, vomiting, diarrhea. Denies focal abdominal pain. Reports generalized abdominal cramping. Denies hematemesis, melena or hematochezia. : Denies dysuria or gross hematuria. Reports urinary frequency/polyuria. Musculoskeletal: Reports generalized mid and low back pain, as is chronic for him. No joint pain or swelling. Integument: Denies rash. [] Neurologic: Denies headache, focal weakness or sensory changes. [] Endocrine: Reports polyuria or polydipsia. [] Lymphatic: Denies swollen glands. [] Psychiatric: Chronic anxiety issues as related to chronic and acute medical conditions.. [] Heart Score: C/O Chest Pain: No Risk Factors: Risk Factors: DM, Current or recent (<one month) smoker, HTN, HLP, family history of CAD, obesity. Risk Scores: Score 0 - 3: 2.5% MACE over next 6 weeks - Discharge Home Score 4 - 6: 20.3% MACE over next 6 weeks - Admit for Clinical Observation Score 7 - 10: 72.7% MACE over next 6 weeks - Early Invasive Strategies Allergies: Allergies: Allergies Coded Allergies Type Severity Reaction Last Updated Verified Penicillins Allergy Intermediate 05/27/15 Yes amoxicillin Allergy Intermediate 05/27/15 Yes cefaclor Allergy Intermediate 05/04/16 Yes Physical Exam: PE: Constitutional: Well developed, well nourished, non-toxic appearance. He is tearful, anxious, spitting into an emesis bag, mildly disheveled. He is mildly ill appearing. HENT: Normocephalic, atraumatic, oropharynx is patent and clear. Mucous mem branes are moist. Eyes: Clear clear, anicteric, conjunctival noninjected Neck: Normal range of motion, no tenderness, supple, no stridor. Trachea midline. Cardiovascular: Tachycardic, regular, +2 radial and +2 posterior tibial pulses bilaterally. Well-perfused appearing. Lungs & Thorax: Bilateral breath sounds clear to auscultation, no rales, rhonchi or wheezes. Abdomen: Soft, nondistended, nontender to palpation, no palpable mass organomegaly, no CVA tenderness. Skin: Warm, dry, no erythema, no rash. No jaundice. Back: No deformity, no midline tenderness or step-offs, full range of motion. Diffuse paraspinal tenderness of the lower thoracic and lumbar spine. Extremities: No tenderness, no cyanosis, no clubbing, ROM intact, no edema. No calf tenderness. Neurologic: Alert and oriented X 3, no facial asymmetry, speech is clear and fluent, ambulatory with a steady gait, motor strength appears to be equal on all 4 extremities, sensation is grossly intact Psychologic: Anxious, tearful. EKG: EKG: EKG is interpreted at 0818 Rhythm is sinus tachycardia Rate is 114 bpm Slight rightward axis No acute ischemia No STEMI Radiology/Procedures: Radiology/Procedures: IMAGING REPORT Signed PATIENT: CLEMENTE MALONEY ACCOUNT: [id number] : 1995 LOCATION: ER AGE: 25 SEX: M EXAM STATUS: PRE ER ORD. PHYSICIAN: ERICH GANDHI DO REASON: cough/NOT READY 7:30 PROCEDURE: PORTABLE CHEST 1V XR CHEST 1V History: Reason: cough/NOT READY 7:30 / Spl. Instructions: / History: Comparison: November 12, 2019 Findings: No consolidation or pleural effusion. Normal heart size. No pneumothorax. Impression: 1. No acute cardiopulmonary process. Electronically signed by: Jerry Christie DO (01/30/2021 8:02 AM) [id number] DICTATED and SIGNED BY: JERRY CHRISTIE DO DATE: 01/30/21 [id number] 0 Course & Med Decision Making: Course & Med Decision Making Pertinent Labs and Imaging studies reviewed. (See chart for details) IV fluid boluses are given, subcutaneous insulin is given. The patient's glucose is markedly improved. His anion gap is now closed, and his labs appear markedly improved. He is no longer vomiting. He is tolerating oral fluids with out difficulty. I have discussed the findings, differential diagnosis and plan of care with the patient. Patient was given IV Reglan, IV Benadryl and Ativan, Ativan given for anxiety and some psychomotor agitation. He was given Toradol for his chronic back pain. He was also given p.o. Ultram prior to discharge. Currently, he feels much better, he feels comfortable with the plan for discharge home. I told him to contact his economic manager at as well as his primary care physician for follow-up. I strongly encouraged him to adhere to his medication and dietary regimen, as directed by his physicians. Strict return precautions are given, he is comfortable with the plan of care, verbalizes understanding peer Keyshawn Disclaimer: Keyshawn Disclaimer: This electronic medical record was generated, in whole or in part, using a voice recognition dictation system. Departure Departure Impression: Primary Impression: Hyperglycemia due to diabetes mellitus Additional Impressions: Nausea and vomiting Dehydration Chronic back pain Disposition: HOME / SELF CARE / HOMELESS Condition: STABLE Referrals: Edel RIGGS MD (PCP) Patient Instructions: Diabetic Ketoacidosis, Hyperglycemia Additional Instructions: Please continue taking your insulin as directed. Please follow an [place] [employer] diet. Please drink plenty of fluids. Use the nausea medicine as needed. Return for fever of 100.4 or higher, severe chest pain, shortness of breath, uncontrolled or more severe abdominal pain, dehydration or any other concerns. Please contact your economic manager and primary care doctor for follow-up and for further care. Scripts Tramadol Hcl (ULTRAM) 50 Mg Tablet 1 TAB PO PRN BID PRN for pain MDD 2 Tablet(s) for 30 Days, #15 TAB 0 Refills Prov: ERICH GANDHI DO 01/30/21 Ondansetron Hcl (ZOFRAN) 4 Mg Tablet 4 MG PO PRN TID PRN for VOMITING, #20 TAB nausea/vomiting Prov: ERICH GANDHI DO 01/30/21 ERICH GANDHI DO Jan 30, 2021 07:21
[2021-01-30] MEDS ORDERED: KETOROLAC 15 MG/ML VIAL. IVP ONE (07:30)
[2021-01-30] MEDS ORDERED: IV NORMAL SALINE 1000ML BAG 1,000 ML IV ONE ×3 (07:30→09:00)
[2021-01-30] MEDS ORDERED: METOCLOPRAMIDE HCL 10 MG/2 ML VIAL. IVP ONE (07:30)
[2021-01-30] MEDS ORDERED: diphenhydrAMINE 50 MG/ML VIAL IVP ONE ×2 (07:30→08:00)
[2021-01-30 08:02] LABS: BASO # 0.1 x10^3/uL (0.0-0.2); BASO % 1 % (0-3); EOS % 0 % (0-3); HEMATOCRIT 44.9 % (39.0-53.0); HEMOGLOBIN 15.1 g/dL (13.0-17.5); LYMPH # 1.2 x10^3/uL (1.0-4.8); LYMPH % 8 % (24-48); MEAN CORPUSCULAR HEMOGLOBIN 32 pg (25-35); MEAN CORPUSCULAR HGB CONC 34 g/dL (31-37); MEAN CORPUSCULAR VOLUME 95 fL (79-100); MONO # 0.5 x10^3/uL (0.0-1.1); MONO % 3 % (0-9); NEUT # 12.6 x10^3/uL (1.8-7.7); NEUT % 88 % (31-73); PLATELET COUNT 341 x10^3/uL (140-400); RED BLOOD COUNT 4.72 x10^6/uL (4.30-5.70); RED CELL DISTRIBUTION WIDTH 12.5 % (11.5-14.5); WHITE BLOOD COUNT 14.3 x10^3/uL (4.0-11.0)
--- NOTE | 2021-01-30 08:04 | RAD ---
XR CHEST 1V History: Reason: cough/NOT READY 7:30 / Spl. Instructions: / History: Comparison: November 12, 2019 Findings: No consolidation or pleural effusion. Normal heart size. No pneumothorax. Impression: 1. No acute cardiopulmonary process. Electronically signed by: Jerry Christie DO (01/30/2021 8:02 AM) [id number]
[2021-01-30 08:18] LABS: ALBUMIN 4.5 g/dL (3.4-5.0); ALBUMIN/GLOBULIN RATIO 1.2 (1.0-1.7); CALCIUM 9.8 mg/dL (8.5-10.1); CREATININE 0.9 mg/dL (0.7-1.3); GFR 104.6; MAGNESIUM 1.7 mg/dL (1.8-2.4); PHOSPHORUS 2.8 mg/dL (2.6-4.7); POTASSIUM 4.7 mmol/L (3.5-5.1); TOTAL BILIRUBIN 0.9 mg/dL (0.2-1.0); TOTAL PROTEIN 8.3 g/dL (6.4-8.2)
--- NOTE | 2021-01-30 08:26 | EKG ---
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
[2021-01-30] MEDS ORDERED: INSULIN REGULAR 100 UNIT/ML 3ML VIAL. IV ONE (08:30)
[2021-01-30 08:47] LABS: BILIRUBIN,URINE NEGATIVE (NEG); CLARITY,URINE CLEAR; COLOR,URINE YELLOW; NITRITE,URINE NEGATIVE (NEG); PH,URINE 5.5 (<5.0-8.0); PROTEIN,URINE NEGATIVE (NEG-TRACE); UROBILINOGEN,URINE 0.2 mg/dL (0.2 mg/dL)
[2021-01-30 08:57] LABS: BACTERIA,URINE 0 /HPF (0-FEW); RBC,URINE 0 /HPF (0-2); WBC,URINE 0 /HPF (0-4)
[2021-01-30 11:26] LABS: CALCIUM 8.4 mg/dL (8.5-10.1); CREATININE 0.9 mg/dL (0.7-1.3); GFR 104.6; POTASSIUM 4.3 mmol/L (3.5-5.1)
[2021-01-30 11:30] LABS: % BANDS 3 % (0-9); % LYMPHS 9 % (24-48); % MONOS 2 % (0-10); % SEGS 86 % (35-66); PLT ESTIMATE ADEQUATE (ADEQUATE)
[2021-01-30 11:47] VITALS: BP 119/54
[2021-01-30] MEDS ORDERED: TRAM-48 PO (12:19)
[2021-01-30] MEDS ORDERED: ONDA4TAB7 PO (12:19)
[2021-01-30] MEDS ORDERED: traMADol 50 MG TABLET PO ONE (12:30)
[2021-01-30 13:09] LABS: BARBITURATES NEG (NEG); BENZODIAZEPINES NEG (NEG); CANNABINOIDS NEG (NEG); COCAINE NEG (NEG); METHADONE NEG (NEG); OPIATES NEG (NEG); PHENCYCLIDINE NEG (NEG)
[2021-01-30 13:12] LABS: AMPHETAMINE/METHAMPHETAMINE NEG (NEG)
== END 2021-01-30 12:30 | disposition home or self-care (01) ==
LOC: ER 07:17
DX: E10.65 Type 1 diabetes mellitus with hyperglycemia (principal); E86.0 Dehydration; R11.2 Nausea with vomiting, unspecified; G89.29 Other chronic pain; M54.59 Other low back pain; R10.84 Generalized abdominal pain; Z88.0 Allergy status to penicillin; Z88.1 Allergy status to other antibiotic agents
CPT/HCPCS: 36415; 71045; 80048; 80053; 80307; 81001; 82550; 82962; 83605; 83690; 83735; 84100; 84145; 85007; 85025; 87040; 93005; 96361; 96374; 96375; 99285; J1200; J1815; J1885; J2060; J2765; J7030

== ENCOUNTER 2021-02-15 12:53 | Emergency (ER) | payer OTHER ==
[~2021-02-15] VITALS: Ht 180.3 cm; Wt 77.2 kg
[~2021-02-15 12:53] MED LIST changes: +ONDA4TAB7 PO; +TRAM-48 PO
[2021-02-15] MEDS ORDERED: levETIRAcetam 1,000 MG in IV DEXTROSE 5% 100ML 100 ML IV ONE (13:15)
[2021-02-15] MEDS ORDERED: IV NORMAL SALINE 1000ML BAG 1,000 ML IV ONE ×2 (13:15→13:30)
[2021-02-15 13:21] LABS: BASO % 0 % (0-3); EOS % 0 % (0-3); HEMOGLOBIN 13.7 g/dL (13.0-17.5); LYMPH # 1.1 x10^3/uL (1.0-4.8); LYMPH % 9 % (24-48); MEAN CORPUSCULAR HEMOGLOBIN 32 pg (25-35); MEAN CORPUSCULAR HGB CONC 33 g/dL (31-37); MEAN CORPUSCULAR VOLUME 95 fL (79-100); MONO # 0.8 x10^3/uL (0.0-1.1); MONO % 6 % (0-9); NEUT # 10.7 x10^3/uL (1.8-7.7); NEUT % 85 % (31-73); PLATELET COUNT 311 x10^3/uL (140-400); RED BLOOD COUNT 4.33 x10^6/uL (4.30-5.70); RED CELL DISTRIBUTION WIDTH 12.2 % (11.5-14.5); WHITE BLOOD COUNT 12.6 x10^3/uL (4.0-11.0)
[2021-02-15 13:28] LABS: CALCIUM 9.2 mg/dL (8.5-10.1); GFR 92.6; POTASSIUM 5.5 mmol/L (3.5-5.1)
--- NOTE | 2021-02-15 13:33 | RAD ---
XR CHEST 1V 02/15/2021 1:09 PM INDICATION: Seizure COMPARISON: 01/30/2021 TECHNIQUE: Portable frontal view of the chest is provided. FINDINGS: The cardiomediastinal silhouette is within normal limits. Lungs are clear. There are no significant pleural effusions. There is no pulmonary vascular congestion. No pneumothora x. No suspicious osseous abnormality. IMPRESSION: There is no acute cardiopulmonary process. Electronically signed by: Marah Hebert MD (02/15/2021 1:31 PM) [id number]
[2021-02-15 13:34] LABS: ALBUMIN 4.1 g/dL (3.4-5.0); ALBUMIN/GLOBULIN RATIO 1.2 (1.0-1.7); TOTAL BILIRUBIN 0.3 mg/dL (0.2-1.0); TOTAL PROTEIN 7.4 g/dL (6.4-8.2)
--- NOTE | 2021-02-15 13:40 | RAD ---
EXAM: Head and cervical spine CT without contrast. HISTORY: Seizure. TECHNIQUE: Computed tomographic images of the head and cervical spine were obtained without contrast. *One or more of the following individualized dose reduction techniques were utilized for this examina tion: 1. Automated exposure control. 2. Adjustment of the mA and/or kV according to patient size. 3. Use of iterative reconstruction technique. COMPARISON: 12/16/2020. FINDINGS: Head: There is no acute intracranial hemorrhage. There is no mass effect or midline shift. There is n o hydrocephalus. The visualized orbits and paranasal sinuses mastoid air cells are unremarkable. Ther e is no suspicious calvarial lesion. Cervical spine: There is no listhesis. The vertebral bodies are normal in height and the disc spaces are preserved. There is no suspicious osseous lesion. There is no fracture. There is no significant f oraminal or central canal stenosis. IMPRESSION: No acute intracranial finding or evidence of acute cervical spine trauma. Electronically signed by: Ilsa Wolfe MD (02/15/2021 1:37 PM) [id number]
--- NOTE | 2021-02-15 13:54 | PHYS DOC ---
Past Medical History Past Medical History: Diabetes-Type I Additional Past Medical Histor: nueropathy, gastroporesis, chronic pain (JASMIN SIM OIL GAUGER) Past Surgical History: Other Additional Past Surgical Histo: right foot (JASMIN SIM OIL GAUGER) Smoking Status: Current Some Day Smoker Alcohol Use: Occasionally Drug Use: Cocaine, Marijuana (JASMIN SIM OIL GAUGER) General Adult EDM: Chief Complaint: HYPERGLYCEMIA HPI: HPI: Patient is a 25 year old male who presents with has been having nausea and vomiting for the last 2 days. He was found on the floor today by family. He is altered and seems to be postictal. He does have a history of seizures but does not take any medication for it. Denies abdominal pain, chest pain, shortness of air, headache, neck pain, back pain, incontinence, fever, cough, new numbness or tingling, focal weakness, vision change, light sensitivity, urinary symptoms. Patient has a history of alcoholism, diabetes type 1, seizure, gastroparesis, neuropathy, smoker, cocaine, marijuana use. Denies any type of pain. (JASMIN SIM OIL GAUGER) Review of Systems: Review of Systems: Constitutional: Denies fever or chills. [] Eyes: Denies change in visual acuity. [] HENT: Denies nasal congestion or sore throat. [] Respiratory: Denies cough or shortness of breath. [] Cardiovascular: Denies chest pain or edema. [] GI: Denies abdominal pain, +nausea, +vomiting, denies bloody stools or diarrhea. [] : Denies dysuria. [] Musculoskeletal: Denies back pain or joint pain. [] Integument: Denies rash. [] Neurologic: Denies headache, focal weakness or sensory changes. + Altered mental status, + seizure [] Endocrine: Denies polyuria or polydipsia. [] Lymphatic: Denies swollen glands. [] Psychiatric: Denies depression or anxiety. [] (JASMIN SIM OIL GAUGER) Heart Score: C/O Chest Pain: No HEART Score for Chest Pain: HEART Score for Chest Pain Response (Comments) Value History Slighlty/Non-Suspicious 0 ECG Normal 0 Age < 45 0 Risk Factors 1 or 2 Risk Factors 1 Troponin < Normal Limit 0 Total 1 Risk Factors: Risk Factors: DM, Current or recent (<one month) smoker, HTN, HLP, family history of CAD, obesity. Risk Scores: Score 0 - 3: 2.5% MACE over next 6 weeks - Discharge Home Score 4 - 6: 20.3% MACE over next 6 weeks - Admit for Clinical Observation Score 7 - 10: 72.7% MACE over next 6 weeks - Early Invasive Strategies (JASMIN SIM APRN) Current Medications: Current Medications Medications (Trade) Dose Ordered Sig/Nam Start Time Stop Time Status Last Admin Dose Admin Levetiracetam 1000 mg/Dextrose 110 ml @ 440 mls/hr 1X ONCE 02/15/21 13:15 02/15/21 13:29 DC Sodium Chloride 1,000 ml @ 1,000 mls/hr 1X ONCE 02/15/21 13:15 02/15/21 14:14 (JASMIN SIM APRN) Allergies: Allergies: Allergies Coded Allergies Type Severity Reaction Last Updated Verified Penicillins Allergy Unknown 01/30/21 Yes amoxicillin Allergy Unknown 01/30/21 Yes cefaclor Allergy Unknown 01/30/21 Yes (JASMIN SIM APRN) Physical Exam: PE: Constitutional: Well developed, well nourished, no acute distress, non-toxic appearance. [] HENT: Normocephalic, atraumatic, bilateral external ears normal, oropharynx moist, no oral exudates, nose normal. [] Eyes: PERRLA, EOMI, conjunctiva normal, no discharge. [] Neck: Normal range of motion, no tenderness, supple, no stridor. [] Cardiovascular:Heart rate regular rhythm, no murmur [] Lungs & Thorax: Bilateral breath sounds clear to auscultation [] Abdomen: Bowel sounds normal, soft, no tenderness, no masses, no pulsatile masses. [] Skin: Warm, dry, no erythema, no rash. [] Back: No tenderness, no CVA tenderness. [] Extremities: No tenderness, no cyanosis, no clubbing, ROM intact, no edema. [] Neurologic: Alert and oriented X 3, normal motor function, normal sensory function, no focal deficits noted. Postictal [] Psychologic: Affect normal, judgement normal, mood normal. [] (JASMIN SIM APRN) Current Patient Data: Labs: Laboratory Tests Test 02/15/21 12:58 02/15/21 13:05 Glucose (Fingerstick) 431 mg/dL (70-99) H White Blood Count 12.6 x10^3/uL (4.0-11.0) H Red Blood Count 4.33 x10^6/uL (4.30-5.70) Hemoglobin 13.7 g/dL (13.0-17.5) Hematocrit 41.0 % (39.0-53.0) Mean Corpuscular Volume 95 fL (79-100) Mean Corpuscular Hemoglobin 32 pg (25-35) Mean Corpuscular Hemoglobin Concent 33 g/dL (31-37) Red Cell Distribution Width 12.2 % (11.5-14.5) Platelet Count 311 x10^3/uL (140-400) Neutrophils (%) (Auto) 85 % (31-73) H Lymphocytes (%) (Auto) 9 % (24-48) L Monocytes (%) (Auto) 6 % (0-9) Eosinophils (%) (Auto) 0 % (0-3) Basophils (%) (Auto) 0 % (0-3) Neutrophils # (Auto) 10.7 x10^3/uL (1.8-7.7) H Lymphocytes # (Auto) 1.1 x10^3/uL (1.0-4.8) Monocytes # (Auto) 0.8 x10^3/uL (0.0-1.1) Eosinophils # (Auto) 0.0 x10^3/uL (0.0-0.7) Basophils # (Auto) 0.0 x10^3/uL (0.0-0.2) Sodium Level 134 mmol/L (136-145) L Potassium Level 5.5 mmol/L (3.5-5.1) H Chloride Level 97 mmol/L (98-107) L Carbon Dioxide Level 33 mmol/L (21-32) H Anion Gap 4 (6-14) L Blood Urea Nitrogen 21 mg/dL (8-26) Creatinine 1.0 mg/dL (0.7-1.3) Estimated GFR (Cockcroft-Gault) 92.6 BUN/Creatinine Ratio 21 (6-20) H Glucose Level 456 mg/dL (70-99) H Lactic Acid Level 1.4 mmol/L (0.4-2.0) Calcium Level 9.2 mg/dL (8.5-10.1) Magnesium Level 2.2 mg/dL (1.8-2.4) Total Bilirubin 0.3 mg/dL (0.2-1.0) Aspartate Amino Transferase (AST) 12 U/L (15-37) L Alanine Aminotransferase (ALT) 26 U/L (16-63) Alkaline Phosphatase 139 U/L (46-116) H Total Protein 7.4 g/dL (6.4-8.2) Albumin 4.1 g/dL (3.4-5.0) Albumin/Globulin Ratio 1.2 (1.0-1.7) Ethyl Alcohol Level < 10 mg/dL (0-10) Acetone Level Neg (NEG) Laboratory Tests 02/15/21 13:05 Laboratory Tests 02/15/21 13:05 Vital Signs: Vital Signs Date Time Temp Pulse Resp B/P (MAP) Pulse Ox O2 Delivery O2 Flow Rate FiO2 02/15/21 12:53 98.8 88 18 126/65 (85) 99 Room Air 98.8 (JASMIN SIM APRN) EKG: EK read by Dr. Umaña is a sinus rhythm no STEMI [] (JASMIN SIM APRN) Radiology/Procedures: Radiology/Procedures: [] Impression: [facility] [address] [place] [address] IMAGING REPORT Signed PATIENT: CLEMENTE MALONEY ACCOUNT: [id number] : 1995 LOCATION: ER AGE: 25 SEX: M EXAM STATUS: PRE ER ORD. PHYSICIAN: JASMIN SIM APRN REASON: seizure, found on floor, AMS PROCEDURE: CT HEAD AND CERVICAL SPINE WO EXAM: Head and cervical spine CT without contrast. HISTORY: Seizure. TECHNIQUE: Computed tomographic images of the head and cervical spine were obtained without contrast. *One or more of the following individualized dose reduction techniques were utilized for this examination: 1. Automated exposure control. 2. Adjustment of the mA and/or kV according to patient size. 3. Use of iterative reconstruction technique. COMPARISON: 12/16/2020. FINDINGS: Head: There is no acute intracranial hemorrhage. There is no mass effect or midline shift. There is no hydrocephalus. The visualized orbits and paranasal sinuses mastoid air cells are unremarkable. There is no suspicious calvarial lesion. Cervical spine: There is no listhesis. The vertebral bodies are normal in height and the disc spaces are preserved. There is no suspicious osseous lesion. There is no fracture. There is no significant foraminal or central canal stenosis. IMPRESSION: No acute intracranial finding or evidence of acute cervical spine trauma. Electronically signed by: Ilsa Cuevas MD (02/15/2021 1:37 PM) [id number] DICTATED and SIGNED BY: ILSA CUEVAS MD DATE: 02/15/[id number] [id number] [place], [place] [id number] IMAGING REPORT Signed PATIENT: CLEMENTE MALONEY ACCOUNT: [id number] : 1995 LOCATION: ER AGE: 25 SEX: M EXAM STATUS: PRE ER ORD. PHYSICIAN: JASMIN SIM APRN REASON: seizure PROCEDURE: PORTABLE CHEST 1V XR CHEST 1V 02/15/2021 1:09 PM INDICATION: Seizure COMPARISON: 01/30/2021 TECHNIQUE: Portable frontal view of the chest is provided. FINDINGS: The cardiomediastinal silhouette is within normal limits. Lungs are clear. There are no significant pleural effusions. There is no pulmonary vascular congestion. No pneumothorax. No suspicious osseous abnormality. IMPRESSION: There is no acute cardiopulmonary process. Electronically signed by: Fabiana Sequeira MD (02/15/2021 1:31 PM) [id number] DICTATED and SIGNED BY: FABIANA SEQUEIRA MD DATE: 02/15/[id number] 0 [facility] [address] [place], [place] [id number] IMAGING REPORT Signed PATIENT: CLEMENTE MALONEY ACCOUNT: [id number] : 1995 LOCATION: ER AGE: 25 SEX: M EXAM STATUS: REG ER ORD. PHYSICIAN: JASMIN SIM APRN REASON: nausea and vomiting, elevated liver enzyme PROCEDURE: CT ABD PELV W/ IV CONTRST ONLY EXAM: Abdomen and pelvis CT with intravenous contrast. HISTORY: Nausea and vomiting. Elevated liver enzyme laboratory values. TECHNIQUE: Computed tomographic images of the abdomen and pelvis were obtained following the administration of intravenous contrast. Multiplanar reformatting was performed. *One or more of the following individualized dose reduction techniques were utilized for this examination: 1. Automated exposure control. 2. Adjustment of the mA and/or kV according to patient size. 3. Use of iterative reconstruction technique. COMPARISON: 12/22/2020. FINDINGS: Evaluation of the lower thorax demonstrates no infiltrate. No hepatic lesion is seen. The gallbladder, pancreas, spleen, adrenal glands and left kidney are unremarkable.. There is a prominent right renal collecting system. There is no evidence of bowel obstruction. There is a large amount of formed colonic stool. The bladder is unremarkable. The aorta is normal in caliber. There is no lymphadenopathy. There is no appendicitis. There is no suspicious or acute osseous finding. IMPRESSION: 1. Large amount of colonic stool. Correlate for constipation. 2. Prominent right renal collecting system. No obstructing lesion is seen, favoring changes due to the hydration status of patient rather than hydronephrosis. Electronically signed by: Ilsa Cuevas MD (02/15/2021 2:32 PM) [id number] DICTATED and SIGNED BY: ILSA CUEVAS MD DATE: 02/15/21 [id number] (JASMIN SIM APRN) Course & Med Decision Making: Course & Med Decision Making Pertinent Labs and Imaging studies reviewed. (See chart for details) See HPI. Alert and oriented x4. Shakes his head yes or no. Follows commands. Speaks very softly. Answers my questions appropriately. Abdomen soft and nontender. PERRLA. CT of the head cervical spine shows no acute findings. Chest x-ray normal. Patient is given 2 L of normal saline and Reglan. States he did take his insulin this morning. Moving all extremities. 1440: CT abdomen pelvis shows constipation. Patient is dehydrated. Chest x-ray shows no acute findings. Patient is getting up and threatening to pull out his own IV. He states he is wanting to leave. He is educated that if he goes home there is always a risk of or disability and that he is very dehydrated. Patient states his understanding. He is alert and oriented X 4. Patient is leaving AMA. (JASMIN SIM APRN) Dragon Disclaimer: Dragon Disclaimer: This electronic medical record was generated, in whole or in part, using a voice recognition dictation system. (JASMIN SIM APRN) Departure Departure Impression: Primary Impression: Nausea and vomiting Qualified Codes: R11.2 - Nausea with vomiting, unspecified Additional Impressions: Seizure-like activity Left against medical advice Dehydration Aggressive behavior Disposition: LEFT AGAINST MEDICAL ADVICE Admitting Physician: SONIA (JASMIN SIM APRN) Condition: STABLE Referrals: Edel RGIGS MD (PCP) Attending Signature Attending Signature I have reviewed the PA/CHARGER TESTER's note and plan of care. I was available for consultation as needed during the patient's visit in the emergency department. I agree with the clinical impression, plan, and disposition. (KAYLEY UMAÑA DO) JASMIN SIM APRN Feb 15, 2021 13:54 KAYLEY UMAÑA DO Feb 15, 2021 16:50
[2021-02-15] MEDS ORDERED: METOCLOPRAMIDE HCL 10 MG/2 ML VIAL. IVP ONE (14:00)
[2021-02-15] MEDS ORDERED: CONTRAST GIVEN. MC PRN (14:00)
[2021-02-15] MEDS ORDERED: IOHEXOL 300 MG/ML 100ML VIAL. IV ONE (14:00)
[2021-02-15 14:16] VITALS: BP 125/70
--- NOTE | 2021-02-15 14:34 | RAD ---
EXAM: Abdomen and pelvis CT with intravenous contrast. HISTORY: Nausea and vomiting. Elevated liver enzyme laboratory values. TECHNIQUE: Computed tomographic images of the abdomen and pelvis were obtained following the administ ration of intravenous contrast. Multiplanar reformatting was performed. *One or more of the following individualized dose reduction techniques were utilized for this examina tion: 1. Automated exposure control. 2. Adjustment of the mA and/or kV according to patient size. 3. Use of iterative reconstruction technique. COMPARISON: 12/22/2020. FINDINGS: Evaluation of the lower thorax demonstrates no infiltrate. No hepatic lesion is seen. The g allbladder, pancreas, spleen, adrenal glands and left kidney are unremarkable.. There is a prominent right renal collecting system. There is no evidence of bowel obstruction. There is a large amount of formed colonic stool. The bladder is unremarkable. The aorta is normal in caliber. There is no lympha denopathy. There is no appendicitis. There is no suspicious or acute osseous finding. IMPRESSION: 1. Large amount of colonic stool. Correlate for constipation. 2. Prominent right renal collecting system. No obstructing lesion is seen, favoring changes due to th e hydration status of patient rather than hydronephrosis. Electronically signed by: Ilsa Wolfe MD (02/15/2021 2:32 PM) [id number]
[2021-02-15] MEDS ORDERED: fentaNYL PF VIAL 100 MCG/2 ML VIAL IVP ONE (15:00)
--- NOTE | 2021-02-15 15:36 | EKG ---
[facility] [address] [place] [address] Test Date: 2021-02-15 Test Time: 13:01:47 Pat Name: CLEMENTE MALONEY Department: Room: Gender: M Inside Sales Assistant: : 1995 Requested By: JASMIN SIM Order Number: [id number] Reading MD: Jason Kirk Measurements Intervals [place] Rate: 90 P: 221 PA: 180 QRS: 95 QRSD: 92 T: 48 QT: 330 QTc: 407 Interpretive Statements SINUS TACHYCARDIA NONSPECIFIC ST T WAVE CHANGES Electronically Signed On 02-17-2021 9:52:53 DISTRICT TRAFFIC CHIEF by Jason Kirk
== END 2021-02-15 14:49 | disposition left against medical advice (07) ==
LOC: ER 12:53
DX: R56.9 Unspecified convulsions (principal); R11.2 Nausea with vomiting, unspecified; E86.0 Dehydration; F17.200 Nicotine dependence, unspecified, uncomplicated; E10.40 Type 1 diabetes mellitus with diabetic neuropathy, unspecified; R41.82 Altered mental status, unspecified
CPT/HCPCS: 36415; 70450; 71045; 72125; 74177; 80053; 82010; 82550; 82962; 83605; 83690; 83735; 84484; 85025; 93005; 96361; 96365; 96375; 99285; G0480; J1953; J2765; J7030; J7060; Q9967

== ENCOUNTER → 2021-05-14 | Outpatient (CLI) | payer OTHER ==
[2021-02-15 18:05] VITALS: BP 132/69
--- NOTE | 2021-05-14 11:55 | RAD ---
EXAM: Nuclear hepatobiliary scan. HISTORY: Vomiting. TECHNIQUE: Following intravenous administration of 5.4 mCi Tc 99m Choletec, anterior images of the ab domen were obtained at five minute intervals through one hour. Subsequently, 8 ounces Boost drink was ingested and additional images to assess gallbladder ejection fraction were obtained. FINDINGS: There is prompt radiotracer uptake by the liver. No focal defect is seen. There is normal e xcretion into the biliary tree. The gallbladder is visualized within 5 minutes and there is free flow into the duodenum. The gallbladder ejection fraction is 78 percent. IMPRESSION: Normal radionuclide biliary scan. Electronically signed by: Ilsa Wolfe MD (05/14/2021 11:53 AM) [id number]
== END ==
LOC: NM 09:06
PROVIDERS: ATTEND Family Medicine
DX: R11.11 Vomiting without nausea (principal)
CPT/HCPCS: 78227; A9537